=== PATIENT | male | born 1950 | race Caucasian/White ===

== ENCOUNTER 2020-09-20 09:53 | Outpatient (REF) | payer MEDICARE, SELFPAY | END 2020-09-20 09:54 | disposition home or self-care (01) | LOC: HO.LAB 09:53 | PROVIDERS: Visit Provider Internal Medicine | DX: Z20.828 Contact with and (suspected) exposure to other viral communicable diseases (principal) | CPT/HCPCS: C9803; U0003 ==

== ENCOUNTER 2021-06-15 08:34 | Outpatient (REF) | payer MEDICARE, SELFPAY | END 2021-06-15 08:35 | disposition home or self-care (01) | LOC: HO.LAB 08:34 | PROVIDERS: PCP Internal Medicine; Visit Provider Internal Medicine | DX: Z20.822 Contact with and (suspected) exposure to COVID-19 (principal) | CPT/HCPCS: C9803; U0003; U0005 ==

== ENCOUNTER 2021-09-20 09:49 | Outpatient (REF) | payer MEDICARE, SELFPAY ==
[2021-09-20 10:36] LABS: Binax Now Covid-19 Ag Positive (Negative)
[2021-09-20 10:37] LABS: Binax Internal Control QC Valid; Binax Lot number: 9864
== END 2021-09-20 09:50 | disposition home or self-care (01) ==
LOC: HO.LAB 09:49
PROVIDERS: Visit Provider Internal Medicine
DX: Z20.822 Contact with and (suspected) exposure to COVID-19 (principal)
CPT/HCPCS: 36415; C9803

== ENCOUNTER 2021-11-12 08:13 | Outpatient (REF) | payer MEDICARE, SELFPAY ==
[2021-11-12 10:02] LABS: B Type Natriuretic Peptide 48 pg/mL (<100)
== END 2021-11-12 08:14 | disposition home or self-care (01) ==
LOC: HO.LAB 08:13
PROVIDERS: Absent Provider Internal Medicine; PCP Internal Medicine; Visit Provider Internal Medicine
DX: I10 Essential (primary) hypertension (principal); R06.02 Shortness of breath
CPT/HCPCS: 36415; 83880

== ENCOUNTER → 2021-12-24 08:08 | Outpatient (REF) | payer MEDICARE, SELFPAY ==
--- NOTE | 2021-12-24 08:17 | CA_ITS ---
Transthoracic Echocardiogram Patient (Last, First, Middle): Eran Mathew D Gender: Male Date of : 1950 Age: 71 Procedure Date: 12/24/2021 Procedure Type: Transthoracic Echocardiogram Location: OP Height: 177.8 cm Weight: 97.98 kg BSA: 2.16 m2 Heart Rate: bpm BP: 144 / 82 mmHg Hairspring Ii Inspector: THEODORE Referring MD: Иван Mackey MD Dust Mop Maker: Evans Gage MD Symptoms: I.10 HTN SOB R06.02 Study Quality: Fair/contrast ECG Rhythm: Sinus Conclusions: - 1. Normal LV size with mild LVH with low normal LV systolic function with LVEF of 50-55% with impaired relaxation filling pattern 2. Mild aortic stenosis 3. Normal RV systolic pressure 4. No gross pericardial effusion Findings Procedure Information Contrast agent, definity, is being given per protocol without apparent complications. Left Ventricle Normal left ventricular cavity size. There is mildly increased left ventricular wall thickness. The left ventricular systolic function is low normal. The visually estimated ejection fraction is between 50-55%. There is paradoxical septal motion consistent with a left bundle branch block. Spectral Doppler is indicative of an impaired relaxation filling pattern. Atria The left atrium is likely dilated. Interatrial shunt cannot be excluded. The right atrium is normal in size. Aortic Valve The aortic valve was not well visualized. There is mild calcification of the aortic valve. There is mild aortic valve stenosis. The peak aortic gradient is 18 mmHg.The mean gradient is 10 mmHg. The aortic valve area is 1.62 cm2. There is no aortic valve regurgitation. Mitral Valve There is mild anterior and moderate posterior mitral leaflet thickening. There is moderate mitral annular calcification. There is trace mitral valve regurgitation. There is no mitral valve stenosis. Pulmonic Valve The pulmonic valve was not well visualized. Tricuspid Valve The tricuspid valve was not well visualized. The right ventricular systolic pressure is normal. Great Vessels The aorta was not well visualized. The pulmonary artery was not well visualized. Venous The inferior vena cava is normal in size. Pericardium/Pleural There is no evidence of pericardial effusion. Measurements 2D Linear Measurements IVSd: 1.35 0.6-0.9/0.6-1.0 cm LVIDd: 5.47 3.9-5.3/4.2-5.9 cm LVIDd Index: 2.53 2.4-3.2/2.2-3.1 cm/m2 LVIDs: 3.51 2.0-3.6 cm LVPWd: 1.19 0.7-1.1 cm LA Diam: 3.80 2.7-3.8/3.0-4.0 cm LAIDs Index: 1.76 1.5-2.3 cm/m2 LV Mass: 364.27 67-162/88-224 g LV Mass Index: 168.64 43-95/49-115 g/m2 LVOT Diam: 2.00 3.0+(-)1.3 cm 2D Systolic Function EF 4C: 44.60 >55% EF 2C: 57.20 >55% EF BiP: 52.50 >55% Mitral Valve MV Pk E: 0.59 MV PK A: 1.19 MV Decel Time: 170.00 E/A: 0.50 E'Lateral: 6.85 E'Medial: 5.00 E/E' Med: 11.70 E/E' Lat: 8.50 PHT: 50.00 MVA PHT: 4.40 Decel [place]: 3.44 Aortic Valve AoV Pk Hermes: 2.11 AoV Mn Hermes: 1.49 AoV VTI: 0.43 AoV Pk Grad: 18.00 Aov Mn Grad: 10.00 VINCENT Cont.VTI: 1.62 LVOT LVOT Pk Hermes: 1.10 LVOT Mn Hermes: 0.77 LVOT VTI: 0.22 LVOT Pk Grad: 5.00 LVOT Mn Grad: 3.00 LVOT Diam: 2.00 LVOT Area: 3.14 Diastolic Function MV Pk E: 0.59 MV Pk A: 1.19 E/A: 0.50 E'Medial: 5.00 E/E' Med: 11.70 E' Laterial: 6.85 E/E' Lat: 8.50 Right Ventricle TAPSE (mm): 24.00 TVS' Hermes: 18.80 Tricuspid Valve TR Pk Hermes: 1.19 TR Pk Grad: 6.00 RA Press: 3.00 RVSP: 9.00 Great Vessels Aorta Sinus of Valsalva: 3.46 2.0-3.5 cm Ao Asc: 3.30 2.1-3.4 cm Ao Arch: 2.80 Updated in Other Vendor System with Status of Final Evans Gage MD electronically signed on 12/25/2021 5:15:51 PM with status of Final
== END ==
LOC: HO.CARD 08:08
PROVIDERS: PCP Internal Medicine; Visit Provider Internal Medicine
DX: I10 Essential (primary) hypertension (principal); R06.02 Shortness of breath
CPT/HCPCS: 93306; Q9957

== ENCOUNTER 2023-06-27 07:44 | Outpatient (REF) | payer MEDICARE, SELFPAY ==
--- NOTE | ~2023-06-27 | XR_ITS ---
EXAMINATION: XR CHEST 2 VIEWS CLINICAL INFORMATION: Bacterial pneumonia. COMPARISON: Chest radiographs dated 10/17/2018. TECHNIQUE: Frontal and lateral views of the chest were obtained. FINDINGS: The heart, great vessels, pulmonary vasculature and mediastinum are normal. The lungs show no focal infiltrate, effusion or pneumothorax. There is no acute osseous abnormality. There is multi-level thoracic spondylosis. A dual-lead, dual-chamber pacemaker device shows no lead fracture or change in lead tip positions. XR/XR chest 2V IMPRESSION: No active cardiopulmonary disease.
== END 2023-06-27 07:45 | disposition home or self-care (01) ==
LOC: HO.XRAY 07:44
PROVIDERS: PCP Internal Medicine; Visit Provider Internal Medicine
DX: J18.9 Pneumonia, unspecified organism (principal)
CPT/HCPCS: 71046

== ENCOUNTER 2023-07-25 14:26 | Outpatient (REF) | payer MEDICARE, SELFPAY ==
[2023-07-25 18:08] LABS: Anion Gap 17 (12-20); Blood Urea Nitrogen 19 mg/dL (9-16); Calcium 9.9 mg/dL (8.4-10.2); Carbon Dioxide 23 mmol/L (22-29); Chloride 101 mmol/L (96-108); Estimated Glomerular Filt Rate > 60; Glucose Random 118 mg/dL (60-115); Potassium 4.8 mmol/L (3.3-5.1); Sodium 136 mmol/L (135-145)
== END 2023-07-25 14:27 | disposition home or self-care (01) ==
LOC: HO.CHCLDS 14:26
PROVIDERS: Visit Provider Internal Medicine
DX: I25.10 Atherosclerotic heart disease of native coronary artery without angina pectoris (principal); E11.65 Type 2 diabetes mellitus with hyperglycemia
CPT/HCPCS: 36415; 80048

== ENCOUNTER 2024-01-24 10:32 | Outpatient (REF) | payer MEDICARE, SELFPAY ==
[2024-01-24 15:19] LABS: Creatinine Urine 87.05 mg/dL; Microalbum/Creatinine Ratio Ur 35.6 ug/mg cr (<30)
[2024-01-24 15:23] LABS: Alanine Aminotransferase 21 U/L (0-40); Albumin Level 4.3 g/dL (3.5-5.0); Alkaline Phosphatase 52 U/L (39-117); Anion Gap 15 (12-20); Aspartate Amino Transferase 22 U/L (5-37); Bilirubin Total 0.5 mg/dL (0.0-1.0); Blood Urea Nitrogen 18 mg/dL (9-16); Calcium 9.3 mg/dL (8.4-10.2); Carbon Dioxide 25 mmol/L (22-29); Chloride 103 mmol/L (96-108); Cholesterol 107 mg/dL (<200); Estimated Glomerular Filt Rate > 60; Glucose Random 111 mg/dL (60-115); HDL Cholesterol 31 mg/dL (>40); LDL Cholesterol Calculated 61 mg/dL (<100); Potassium 4.3 mmol/L (3.3-5.1); Sodium 139 mmol/L (135-145); TSH reflex Free T4 0.52 uIU/mL (0.32-4.0); Total Protein 7.6 g/dL (6.5-8.0); Triglycerides 78 mg/dL (<150)
[2024-01-25 04:13] LABS: ~HepC Num1 0.75 S/CO (0.00-0.79); ~Hepatitis C Antibody Nonreactive (Nonreactive)
== END 2024-01-24 10:33 | disposition home or self-care (01) ==
LOC: HO.CHCLDS 10:32
PROVIDERS: Visit Provider Internal Medicine
DX: E78.00 Pure hypercholesterolemia, unspecified (principal); E11.65 Type 2 diabetes mellitus with hyperglycemia; I10 Essential (primary) hypertension
CPT/HCPCS: 36415; 80053; 80061; 82043; 82570; 84443; 86803

== ENCOUNTER 2025-05-14 09:48 | Outpatient (REF) | payer MEDICARE, SELFPAY ==
--- OUTSIDE RECORDS SUMMARY | 2025-05-12 23:59 | XMS_ITS | Continuity of Care Document ---
Author Organization [facility] Address [address] [place] [id number] Care Team Providers Care Dental Hygiene Instructor Name Role Phone Narendra PATRICIO, [facility] Primary Care Physician Encounter [facility] Date(s): 04/12/25 - 05/12/25 [facility] [address] [place] [id number] Encounter Type: Triage Allergies, Adverse Reactions, Alerts No Known Allergies Immunizations Given and Recorded Vaccine Date Status Refusal Reason influenza virus vaccine, inactivated 07/15/23 Give n influenza virus vaccine, inactivated 06/12/14 Give n influenza virus vaccine, inactivated 05/31/13 Give n influenza virus vaccine, inactivated 05/23/12 Give n Zostavax (oldterm) 03/08/12 Given hepatitis B adult vaccine 11/18/11 Given FluLaval (oldterm) 1 06/04/11 Given FluLaval (oldterm) 06/12/10 Given Hepatitis B Vaccine (old term) 06/04/11 Given influ virus vac, H1N1, inactive(oldterm) 2 09/09/09 Given Influenza Virus Vaccine (oldterm) 06/04/09 Given Influenza Virus Vaccine (oldterm) 08/09/08 Given Tet/Diphth/Acel, Pertussis (oldterm) 05/29/08 Give n Influenza Inactive (IM) (oldterm) 3 08/16/06 Given Pneumococcal Poly (PPV23) (oldterm) 05/29/06 Given 1Admin Note: [facility] [place] [facility] [place] 2Admin Note: H1N1 3Admin Note: clinic [facility] Medications Anoro Ellipta 62.5 mcg-25 mcg inhalation powder 1 puffs, Inhalation, Daily, # 30 each, 1 Refills, Maintenance, 01/14/15 2:51:36 PM EDT, Powder, [id number], 1 puffs Inhalation Daily Start Date: 01/14/15 Status: Ordered Quantity: 30.0 Unit: each Repeat number: 2 aspirin 81 mg oral tablet, chewable 81 mg, By Mouth, Daily, Refills 0, Maintenance, 11/28/18 12:16:45 PM EDT Start Date: 11/28/18 Status: Ordered Repeat number: 1 atorvastatin 80 mg oral tablet = 80 mg, By Mouth, Daily at bedtime, # 30 tablet, 0 Refills, Maintenance, 07/17/23 12:55:00 PM EDT,Tablet, [facility], Partial fill upon patient request if the prescription is for a schedule II opioid drug., 174, cm, 07/17/23 12:09:00 EDT, Height, 94.7, kg, 07/12/23 7:01:00 EDT, Dry Weight Start Date: 07/17/23 Status: Ordered Quantity: 30.0 Unit: tablet Repeat number: 1 Entresto 24 mg-26 mg oral tablet 1 tablet, By Mouth, 2 times a day, # 180 tablet, 1 Refills, Maintenance, 04/12/25 10:19:00 AM EDT, Tablet, [facility], Partial fill upon patient request if the prescription is fora schedule II opioid drug., 1 tablet By Mouth 2 times a day,x90 days, 178, cm, 01/01/25 11:20:00 EDT, Height, 91.3, kg, 09/27/23 9:04:00 EST, Dry Weight Start Date: 04/12/25 Stop Date: 10/09/25 Status: Ordered Quantity: 180.0 Unit: tablet Repeat number: 2 Freestyle Lite Lancets See Instructions, # 200 each, Refills 3, Tot. Refills 3, Maintenance, use as directed for Type 1 Diabetes Mellitus, 12/21/14 1:37:27 PM EDT, Compound Start Date: 12/21/14 Stop Date: 04/20/15 Status: Ordered Quantity: 200.0 Unit: each Repeat number: 4 Freestyle Lite Monitor See Instructions, # 1 each, Refills 5, Tot. Refills 5, Maintenance, use as directed for Type 1 Diabetes Mellitus, 06/24/14 1:37:36 PM EDT, Compound Start Date: 06/24/14 Stop Date: 12/21/14 Status: Ordered Quantity: 1.0 Unit: each Repeat number: 6 Freestyle Lite Monitor See Instructions, # 1 each, Refills 5, Tot. Refills 5, Maintenance, use as directed for Type 1 Diabetes Mellitus, 11/08/14 9:01:27 AM EST, Compound Start Date: 11/08/14 Stop Date: 05/07/15 Status: Ordered Quantity: 1.0 Unit: each Repeat number: 6 Freestyle Lite Test Strips See Instructions, # 200 each, Refills 3, Tot. Refills 3, Maintenance, use as directed for Type 1 Diabetes Mellitus, 11/08/14 9:02:58 AM EST, Compound Start Date: 11/08/14 Stop Date: 03/08/15 Status: Ordered Quantity: 200.0 Unit: each Repeat number: 4 gabapentin 100 mg oral capsule TAKE ONE CAPSULE THREE TIMES DAILY Start Date: 11/25/18 Status: Ordered Repeat number: 1 Jardiance 10 mg oral tablet 1 tablet = 10 mg, By Mouth, Daily in AM, # 30 tablet, 0 Refills, Maintenance, 07/17/23 2:47:00 PM EDT, Tablet, Partial fill upon patient request if the prescription is for a schedule II opioid drug. Start Date: 07/17/23 Status: Ordered Quantity: 30.0 Unit: tablet Repeat number: 1 metformin 1000 mg oral tablet 1 tablet = 1,000 mg, By Mouth, 2 times a day, # 180 tablet, 3 Refills, Maintenance, 11/15/14 11:37:13 AM EST, Tablet, d/c metformin-sitag-- to expensive for pt at this time Start Date: 11/15/14 Stop Date: 11/10/15 Status: Ordered Quantity: 180.0 Unit: tablet Repeat number: 4 metoprolol 50 mg oral tablet, extended release 50 mg, 1, tablet, By Mouth, Daily at bedtime, # 90 tablet, Refills 3, Tot. Refills 3, Maintenance, 01/01/25 11:45:00 AM EDT, Route to Pharmacy Electronically, [facility], Partial fill upon patient request if the prescription is for a schedule II opioid drug., 178, cm, 01/01/25 11:20:00 EDT, Height, 91.3, kg, 09/27/23 9:04:00 EST, Dry Weight Start Date: 01/01/25 Status: Ordered Quantity: 90.0 Unit: tablet Repeat number: 4 omeprazole 20 mg oral delayed release tablet 1 tablet = 20 mg, By Mouth, 2 times a day, # 180 tablet, 3 Refills, Maintenance, 11/15/14 11:37:22 AM EST, EC Tablet Start Date: 11/15/14 Stop Date: 11/10/15 Status: Ordered Quantity: 180.0 Unit: tablet Repeat number: 4 One Touch Ultra Test Strips See Instructions, # 100 strip(s), Refills 11, Tot. Refills 11, Maintenance, use to test blood sugar3 times daily, 03/25/10 4:07:28 PM EDT Start Date: 03/25/10 Status: Ordered Quantity: 100.0 Unit: strip(s) Repeat number: 12 Pen [place], 29 G x 12.7 mm BD Ultra Fine See Instructions, # 100 each, Refills 5, Tot. Refills 5, Maintenance, use as directed for Type 2 Diabetes Mellitus, 07/17/23 2:59:00 PM EDT, Supply, 174, cm, 07/17/23 12:09:00 EDT, Height, 94.7, kg, 07/12/23 7:01:00 EDT, Dry Weight Start Date: 07/17/23 Stop Date: 01/13/24 Status: Ordered Quantity: 100.0 Unit: each Repeat number: 6 ProAir HFA 2 puffs, Inhalation, 4 times a day, 0 Refills, Maintenance, 12/25/14 6:39:44 PM EDT Start Date: 12/25/14 Status: Ordered Repeat number: 1 spironolactone 25 mg oral tablet 25 mg, By Mouth, Daily, take one tablet by mouth daily, # 30 tablet, Refills 3, Tot. Refills 3, Maintenance, 07/17/23 12:56:00 PM EDT, Route to Pharmacy Electronically, [facility], Partial fill upon patient request if the prescription is for a schedule II opioid drug., 174, cm, 07/17/23 12:09:00 EDT, Height, 94.7, kg, 07/12/23 7:01:00 EDT, Dry Weight Start Date: 07/17/23 Status: Ordered Quantity: 30.0 Unit: tablet Repeat number: 4 tramadol 50 mg oral tablet See Instructions, 1 or 2 tabs every 6 hours as needed, # 50 tablet, 5 Refills, Maintenance, 11/15/1510:37:36 AM EST Start Date: 11/15/14 Status: Ordered Quantity: 50.0 Unit: tablet Repeat number: 6 Vashe Topical Solution 475 mL, Topically, Every 12 hours, 0 Refills, Maintenance, Solution Start Date: 07/17/23 Status: Ordered Repeat number: 1 Problem List Condition Confirmation Course Effective Dates Status H ealth Status Informant Adult BMI 37.0-37.9 kg/sq m Confirmed Active Anemia 1 Confirmed Active Bacterial skin infection Confirmed Active Benign Essential Hypertension Confirmed Active Chronic cough Confirmed Active Chronic renal insufficiency, stage I Confirmed Active DM (diabetes mellitus), 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 ED (erectile dysfunction) Confirmed 10/07/09 Active Esophagitis 3, 4 Confirmed Active Familial hyperlipidemia Confirmed Active Glaucoma Confirmed Active Gout 5 Confirmed 02/26/13 Active HZ (herpes zoster),v1 left 6 Confirmed Active H/o alcohol abuse Confirmed Active History of COPD Confirmed Active Microscopic Hematuria 7, 8 Confirmed Active Mitral valve insufficiency 9, 10 Confirmed Active Neck pain 11 Confirmed Active Nephrolithiasis 12 Confirmed Active Non-alcoholic fatty liver disease 13, 14, 15 Confirmed Active Osteoarthritis of knee 16 Confirmed Active 1normal iron,b12,folate 2refer healthcare educator again 3egd done;path pending 4refer EGD 5first attack 6V1 left 7neg eval 8urology addressing 9mild 10refer ECHOCARDIOGRAM 11Dr hodges following 12refer uroloogy 13seen on CT thorac [address] scans abdomen ? 14iron normal, refer HEP C 15HEP B given, immune A 16seeing ortho Social History Social History Type Response Smoking Status Former smoker; Numbe r of years: 25; Total pack years: 40; Started at age: 13; Stopped at age: 38; entered on: 01/18/14 Sex Sex Representation Male (finding) Patient Care team information Care Team Personnel Name: Иван Mackey MD Position: [facility] Outreach Member Role: PCP Address: [address] [place] [address] Telecom: Name: Trice Cortez RN Position: [facility] RN Member Role: Primary Care Nurse Name: Amaya Stephen RN Position: [facility] RN Member Role: Primary Care Nurse Name: Lobo Avila RN Position: [facility] RN Member Role: Primary Care Nurse Care Team Related Persons Name: ROE DICKSONNA Name: ILA DICKSON Insurance Providers Guarantor name: Health Plan Information #: 1 Payer: [employer] PPO [employer] ADV Payer Identifier: NA Member Number: [id number] Group Number: [id number] Subscriber Identifier: [id number] Relationship to Subscriber: self Coverage Type: NA Coverage Verification Date: NA Telecom: Address:
[2025-05-14 14:41] LABS: Cholesterol 137 mg/dL (<200); HDL Cholesterol 35 mg/dL (>40); Triglycerides 189 mg/dL (<150)
[2025-05-14 15:03] LABS: Microalbum/Creatinine Ratio Ur 32.2 ug/mg cr (<30)
[2025-05-14 15:32] LABS: Hemoglobin A1C 225.4961 umol/L; Total Hemoglobin (HGBA1C) 4071.2805 umol/L
== END 2025-05-14 09:49 | disposition home or self-care (01) ==
LOC: HO.CHCLDS 09:48
PROVIDERS: Visit Provider Internal Medicine
DX: E11.65 Type 2 diabetes mellitus with hyperglycemia (principal); E78.00 Pure hypercholesterolemia, unspecified
CPT/HCPCS: 36415; 80061; 82043; 82570; 83036

== ENCOUNTER 2025-08-28 01:06 | Inpatient (IN) | payer MEDICARE, SELFPAY ==
[2025-08-28] VITALS (39 sets, daily range): BP systolic 84–157; BP diastolic 42–87; PULSE 61–124; RESP 13–25; TEMP 36.7–38.8; O2SAT 92–97; BMI 28.8
--- NOTE | ~2025-08-28 | US_ITS ---
EXAMINATION: US ABDOMEN LIMITED CLINICAL INFORMATION: Right upper quadrant pain, abnormal LFTs, sepsis. Cholelithiasis, choledocholithiasis COMPARISON: CT from 08/28/2025 TECHNIQUE: Real-time imaging of the right upper quadrant abdominal viscera. FINDINGS: PANCREAS: Visualized portions are unremarkable. LIVER: Liver size is probably enlarged measuring 22 cm long axis. The liver contour is normal. There is diffuse increased echogenicity. No focal hepatic lesion. There is no intrahepatic biliary duct dilatation. GALLBLADDER: There is no gallbladder wall thickening. There is sludge within the gallbladder. There are also echogenic foci with posterior acoustic shadowing consistent with stones. There is no pericholecystic fluid. COMMON BILE DUCT: Normal in caliber measuring 1.1 cm in diameter. There is an echogenic focus within the extra hepatic bile duct without clear posterior acoustic shadowing RIGHT KIDNEY: No hydronephrosis. There is a 15 mm partially exophytic simple cyst in the extra region of the right kidney.. There is a 2-3 mm echogenic focus in the upper pole consistent with a small stone. The lower pole is partially obscured by bowel gas. The kidney measures 13.3 cm in maximum dimension. FREE FLUID: None. US/US abdomen limited IMPRESSION: Cholelithiasis and gallbladder sludge without gallbladder wall thickening. There is extrahepatic bile duct dilation and possible choledocholithiasis. Hepatic steatosis and possible hepatomegaly. There is a small stone in the upper pole right kidney. Electronically signed by: Faustino Andersen MD 08/28/2025 12:16 PM [facility]
--- NOTE | ~2025-08-28 | FL_ITS ---
EXAMINATION: FLUOROSCOPY GUIDANCE FOR NEEDLE PLACEMENT CLINICAL INFORMATION: ERCP COMPARISON: Previous abdominal ultrasound and CT of the abdomen and pelvis August 28, 2025 TECHNIQUE: Intraoperative fluoroscopic guidance provided for ERCP. FINDINGS: 10 intraoperative fluoroscopic images submitted. Earliest images demonstrate a wire in the extrahepatic and right-sided intrahepatic bile ducts. Mild intra and extrahepatic biliary duct dilatation. Question of small filling defects in the distal common bile duct on early images. This may represent stones versus air bubbles. Later images demonstrate balloon in the extrahepatic bile ducts. Later images demonstrate decompression of the biliary system with contrast in the small bowel. There is contrast seen in the gallbladder with round filling defects suggestive of gallstones. See procedure note for detailed findings. FLUOROSCOPY TIME: 3.25 minutes DOSE AREA PRODUCT: 25 Gy-cm2 FL/FL guidance in OR IMPRESSION: Fluoroscopy guidance for ERCP. Electronically signed by: Arabella García MD 08/30/2025 07:55 AM [facility]
--- NOTE | ~2025-08-28 | CT_ITS ---
CLINICAL HISTORY: Febrile; Abd Pain; ? infected stone CT abdomen and pelvis with contrast Comparison: None provided Findings: The lung bases are clear. The liver, spleen, pancreas, bilateral adrenal glands and bilateral kidneys without acute abnormality or abnormal enhancement. Bilateral cortical renal cysts are noted, more numerous and larger on the left. There are also bilateral nonobstructive intrarenal stones, the largest in the lower polar region of the left kidney measuring nearly 17 mm. There are no radiopaque stones in the ureters or bladder. There no hydronephrosis The gallbladder is distended. Tiny gallstones are noted within the gallbladder lumen. Possibly tiny gallstones within the distal CBD. There is mild intra and extrahepatic biliary dilatation The stomach and bowel loops are nondistended. There are no focal colonic lesions or pneumatosis. There is no mesenteric inflammation. The appendix is normal. No free fluid, collections or free air. No aortic dissection or aneurysm. No lymphadenopathy. The bladder is normal. There no acute soft tissue or skeletal abnormality in the abdomen or pelvis. IMPRESSION: Distended gallbladder with tiny gallstones within the lumen. Suggestion of tiny gallstones within the distal CBD (choledocholithiasis). there is mild biliary dilatation. Recommend correlation with right upper quadrant ultrasound. Nonobstructive bilateral intrarenal stones. Bilateral cortical renal cysts. The examination is otherwise unremarkable. This document has been electronically signed by: Robbi Escobedo MD on 08/28/2025 06:19:45
--- NOTE | 2025-08-28 01:33 | ECG_ITS ---
Test Reason : TACYCARDIA Blood Pressure : */* mmHG Vent. Rate : 107 BPM Atrial Rate : 119 BPM P-R Int : * ms QRS Dur : 112 ms QT Int : 356 ms P-R-T Axes : * 36 228 degrees QTcB Int : 475 ms Ventricular-paced rhythm with occasional Premature ventricular complexes Abnormal ECG When compared with ECG of 01-Sep-2006 13:43, Ventricular-paced rhythm has replaced Normal sinus rhythm Referred By: Generic ED Physician Electronically Signed By: JAMIE KEENAN MD
--- NOTE | 2025-08-28 01:43 | ECG_ITS ---
Test Reason : TACYCARDIA Blood Pressure : */* mmHG Vent. Rate : 70 BPM Atrial Rate : 70 BPM P-R Int : 212 ms QRS Dur : 118 ms QT Int : 396 ms P-R-T Axes : * 35 225 degrees QTcB Int : 427 ms AV dual-paced rhythm with prolonged AV conduction Abnormal ECG When compared with ECG of 28-Aug-2025 01:42, Vent. rate has decreased by 37 bpm AV dual-paced complexes has replaced Ventricular-paced rhythm Referred By: Susie Hairston Electronically Signed By: JAMIE KEENAN MD
[2025-08-28 02:06] LABS: Hematocrit 48.4 % (42.0-52.0); Hemoglobin 15.7 g/dl (14.0-18.0); Mean Corpuscular HGB Conc 32.4 g/dl (31.0-36.0); Mean Corpuscular Hemoglobin 28.2 pg (27.0-33.0); Mean Corpuscular Volume 87.1 fL (80.0-98.0); NRBC Abs Auto 0.000 X10*3/uL (0.0-0.012); NRBC Pct Auto 0.0 /100WBC (0.0-0.2); Platelet Count 108 X10*3/uL (160-400); Red Blood Count 5.56 X10*6/uL (4.60-5.80); White Blood Count 4.6 X10*3/uL (4.8-10.8)
[2025-08-28 02:21] LABS: Alanine Aminotransferase 425 U/L (0-40); Albumin Level 4.3 g/dL (3.5-5.0); Alkaline Phosphatase 240 U/L (39-117); Anion Gap 20 (12-20); Aspartate Amino Transferase 258 U/L (5-37); Blood Urea Nitrogen 32 mg/dL (9-16); Calcium 9.0 mg/dL (8.4-10.2); Carbon Dioxide 21 mmol/L (22-29); Chloride 101 mmol/L (96-108); Creatinine Clr Calc Pharmacy 67.0; Estimated Glomerular Filt Rate > 60; Lipase 21 U/L (8-78); Potassium 4.0 mmol/L (3.3-5.1); Sodium 138 mmol/L (135-145); Total Protein 7.1 g/dL (6.5-8.0)
[2025-08-28 02:42] LABS: Neutrophils Percent Manual 68 % (45-73)
[2025-08-28 02:44] LABS: Band Neutrophils Percent 21 % (3-5); Lymphocytes Absolute Manual 0.1 X10*3/uL (1.2-4.9); Lymphocytes Percent Manual 3 % (20-40); Metamyelocytes Absolute 0.3 X10*3/uL; Metamyelocytes Percent 6 %; Monocytes Absolute Manual 0.1 X10*3/uL (0.1-1.2); Monocytes Percent Manual 2 % (2-11); Neutrophils Absolute Manual 4.1 X10*3/uL (2.0-8.3); RBC Morphology NOTED
[2025-08-28 02:45] LABS: Burr Cells 3+ (>5) /OIF; Large Platelet PRESENT; Polychromasia 3+ (>5) /OIF; Toxic Vacuolation PRESENT
[2025-08-28 02:57] LABS: Appearance Urine Cloudy; Glucose Urine UA >=1000 mg/dL (Negative); PH 5.5 (5.0-9.0); Specific Gravity - Urine 1.025 (1.005-1.025); UMIC TRIGGER UACC YES
[2025-08-28 03:07] LABS: UACC Culture Trigger YES
--- NOTE | 2025-08-28 03:12 | ED.ABDPAIN ---
HPI - Abdominal Pain General Chief Complaint: Abdominal Pain Stated Complaint: General Medical Time Seen by Provider: 08/28/25 03:04 Source: patient and family Mode of arrival: ambulatory Limitations: no limitations History of Present Illness ED Provider: Lobo HOOK HPI narrative: The patient is a 75-year-old male presenting to the ED for evaluation of nausea and vomiting which began Tuesday night, patient has slept most of the day Tuesday morning and then woke with worsening nausea, vomiting, and right upper quadrant abdominal pain which radiates to the right hip and back. The patient developed a fever Tuesday evening which prompted ED evaluation. Denies diarrhea, fever, pain with urination, blood in the urine. Related Data Home Medications ?Medication ?Instructions ?Recorded ?Confirmed aspirin 81 mg tablet,delayed 81 mg PO DAILY 08/28/25 08/28/25 release atorvastatin 80 mg tablet 80 mg PO BEDTIME 08/28/25 08/28/25 cetirizine 10 mg tablet 10 mg PO DAILY 08/28/25 08/28/25 empagliflozin 10 mg tablet 10 mg PO DAILY 08/28/25 08/28/25 (Jardiance) latanoprost 0.005 % eye drops 1 drp ophthalmic (eye) BEDTIME 08/28/25 08/28/25 metformin 1,000 mg tablet 1,000 mg PO BID 08/28/25 08/28/25 metoprolol succinate 50 mg 50 mg PO DAILY 08/28/25 08/28/25 tablet,extended release 24 hr omeprazole 20 mg capsule,delayed 20 mg PO BID@0630,1630 08/28/25 08/28/25 release sacubitril 24 mg-valsartan 26 mg 1 tab PO BID 08/28/25 08/28/25 tablet (Entresto) spironolactone 25 mg tablet 25 mg PO DAILY 08/28/25 08/28/25 tramadol 50 mg tablet 50 mg PO Q12H PRN severe pain 08/28/25 08/28/25 Allergies Allergy/AdvReac Type Severity Reaction Status Date / Time atorvastatin (Lipitor) Allergy Unknown Unknown Verified 08/28/25 12:07 Review of Systems Review of Systems Yes all other systems are reviewed and are negative PMFSH Past Medical History Medical History (Updated 08/28/25 @ 12:11 by Courtney Mercado RN) Diabetes mellitus, type 2 COPD (chronic obstructive pulmonary disease) Hypertension Coronary artery disease Hypercholesteremia Surgical History (Updated 08/28/25 @ 12:11 by Courtney Mercado RN) H/O coronary artery bypass surgery AICD (automatic cardioverter/defibrillator) present Social History Social History Household Members: Spouse and Children Household Members Other:: 4 Housing: House Do you presently have visiting nurse or other home services: No Alcohol intake: never Patient Tobacco Use Status: Former Tobacco user Smoked in Last 30 Days: No e-Cigarette/Vaping Use: Never Used Use of substances other than those prescribed or required for medical reasons: No Currently Displaying Signs/Symptoms of Drug Intoxication Withdrawal: No Have you been hit, kicked, punched, or otherwise hurt by someone within the past year? If so, by whom?: No Do you feel safe in your current relationship?: Yes Is there a partner from a previous relationship who is making you feel unsafe now?: No Are you made to feel afraid or neglected: No Anabaptism Healthcare Practices: Jew Advance Directives: No Advance Directives Information Provided: Yes Recently lost weight without trying: No Physical Exam ED Vital Signs: Vital Signs - 24 hr 08/28/25 01:26 08/28/25 03:08 08/28/25 03:32 Temperature 98.2 F 101.9 F H Pulse Rate 117 H 124 H 108 H Respiratory Rate 22 H 14 25 H Blood Pressure 101/50 L 113/66 92/50 L Pulse Oximetry 92 97 95 Oxygen Delivery Method Room Air Room Air Room Air 08/28/25 04:30 08/28/25 04:45 08/28/25 04:55 Temperature 100.3 F Pulse Rate 103 H 71 Respiratory Rate 15 24 H Blood Pressure 87/49 L 86/73 L Pulse Oximetry 93 94 Oxygen Delivery Method Room Air Room Air 08/28/25 05:46 08/28/25 05:50 08/28/25 05:59 Temperature Pulse Rate 109 H 110 H 107 H Respiratory Rate 20 18 Blood Pressure 84/47 L 88/48 L 90/56 L Pulse Oximetry 93 94 Oxygen Delivery Method Room Air 08/28/25 06:17 08/28/25 06:21 08/28/25 06:21 Temperature Pulse Rate 89 111 H Respiratory Rate 21 H Blood Pressure 90/59 L 86/46 L 86/46 L Pulse Oximetry 94 Oxygen Delivery Method 08/28/25 06:26 08/28/25 06:31 08/28/25 06:43 Temperature Pulse Rate 90 98 86 Respiratory Rate 23 H Blood Pressure 91/45 L 94/56 L 91/58 L Pulse Oximetry 94 Oxygen Delivery Method Room Air 08/28/25 07:17 08/28/25 08:18 08/28/25 08:21 Temperature 98.1 F Pulse Rate 72 66 Respiratory Rate 22 H 16 Blood Pressure 114/67 90/48 L 97/48 L Pulse Oximetry 96 95 Oxygen Delivery Method Room Air Room Air BMI result Body Mass Index 28.8 CONSTITUTIONAL: The patient appears non-toxic, well nourished and in no acute distress. Vital signs as documented. HEAD: Atraumatic, normocephalic. EYES: EOMs grossly intact, pupils equal, conjunctiva clear, no exudate. ENT: Nares patent, no discharge. Airway patent, no audible stridor, visible mucosa is pink and moist without noted lesions. NECK: Trachea is midline, no obvious masses or gross abnormalities. CHEST: Symmetric movement, normal appearance. LUNGS: LS present and CTAB, no w/r/r. Non-labored work of breathing. CARDIAC: Regular Rhythm, S1/S2 appreciated, no murmurs, rubs or gallops. ABDOMEN: Abdomen soft x4 quadrants, positive tenderness to the right upper quadrant with positive Gardiner's and guarding, negative rebound, no palpable masses or organomegaly. : Deferred. EXTREMITIES: Normal tone, moves all extremities spontaneously without reported pain. No obvious acute injury or deformity noted. NEURO: Alert and oriented x3, CN II-XII appear grossly intact. Cerebellar Functioning grossly intact. No obvious sensory or motor deficits. Speech clear and appropriate. PSYCH: normal affect, appropriate eye contact, fluid speech, with appropriate response to questioning. No reported suicidality or homicidality. SKIN: Warm, dry, color appropriate, normal turgor. No rashes noted. Procedures EJ/Peripheral Line Arm L: Skin Cleansed in Sterile Fashion: Yes Size (gauge): 20 IV Secured and Dressing Applied: Yes Patient Tolerated Procedure: well Additional Comments: US guidanced utilized for placement. Medical Decision Making Medical Decision Making MDM Narrative: 3:12 AM 08/28/2025 (Michelle HOOK): The patient is a 75-year-old male presenting to the ED for evaluation of nausea and vomiting which began Tuesday night, patient has slept most of the day Tuesday morning and then woke with worsening nausea, vomiting, and right upper quadrant abdominal pain which radiates to the right hip and back. The patient developed a fever Tuesday evening which prompted ED evaluation. Upon arrival in the ED patient was found to be tachycardic, borderline hypotensive, and febrile. The patient's laboratory evaluation demonstrated bandemia of 21%, lactic acid of 4.5, and markedly abnormal LFTs with T bili 5.0, direct bili 3.3, AST to 58, ALT 425, and alkaline phosphatase 240. The patient will be treated with 30 cc/kilos fluid bolus, Rocephin, and vancomycin. 4:43 AM 08/28/2025 (Michelle HOOK): A focused sepsis examination was performed. 6:46 AM 08/28/2025 (Michelle HOOK): The patient's CT abdomen and pelvis demonstrated a distended gallbladder with gallstones in the lumen and possible tiny gallstones within the distal CBD indicating choledocholithiasis. There is mild biliary dilatation. In the setting of the CT findings, with the associated LFT abnormalities, and septic picture, patient is likely suffering from choledocholithiasis with ascending cholangitis. The patient's repeat lactic acid has improved to 2.7, unfortunately however the patient's blood pressure continued to decrease despite IV fluid hydration, as such peripheral Levophed was initiated to maintain map of 65, and due to the patient's severity of illness Flagyl and an additional gram of Rocephin was added. The patient's CT recommends correlation with a right upper quadrant ultrasound, ultrasound has been ordered. As the patient is currently on pressors, ICU admission is warranted, however there are currently no ICU beds available, [facility] has no available ICU beds. Patient's case was discussed with the transfer center at [facility], at this time [facility] is on a transfer hold until 08:00, we will receive a phone call back from the transfer center when hold is lifted. While awaiting determination by [facility] we will also discuss with transfer and pumphouse operator for possibility of admission locally to our ICU. 7:25 AM 08/28/2025 (Michelle HOOK): A ICU bed became available at this facility, transferred will be canceled and patient will be admitted to our ICU. Patient's case discussed with Dr. Napier who accepted the patient to the ICU, and is requesting consultation by Interventional Radiology. 7:42 AM 08/28/2025 (Michelle HOOK): Patient's case was discussed with GI, and after discussion with the tongue and quarter stitcher, and an IR consultation has been placed. Admission/Observation Consideration of admission/observation: Escalation of care including admission/observation considered Consult Healthcare Provider Management of the patient was discussed with: Occupational Therapy Department Chair Lab Data MDM Lab Attestation statement: I reviewed the patient's lab results. 08/28/25 01:59 08/28/25 01:59 Labs: Lab Results 08/28/25 08/28/25 08/28/25 Range/Units 01:59 02:39 02:40 WBC 4.6 L (4.8-10.8) X10*3/uL RBC 5.56 (4.60-5.80) X10*6/uL Hgb 15.7 (14.0-18.0) g/dl Hct 48.4 (42.0-52.0) % MCV 87.1 (80.0-98.0) fL MCH 28.2 (27.0-33.0) pg MCHC 32.4 (31.0-36.0) g/dl RDW 14.1 (11.0-16.0) % Plt Count 108 L (160-400) X10*3/uL MPV 10.9 (9.4-12.4) fL Immature Gran % (Auto) Cancelled Neut % (Auto) Cancelled Lymph % (Auto) Cancelled [place] % (Auto) Cancelled Eos % (Auto) Cancelled Baso % (Auto) Cancelled Lymph # (Auto) Cancelled [place] # (Auto) Cancelled Eos # (Auto) Cancelled Baso # (Auto) Cancelled Abs Immat Gran (auto) Cancelled Absolute Neuts (auto) Cancelled Absolute Nucleated RBC 0.000 (0.0-0.012) X10*3/uL Nucleated RBC % (auto) 0.0 (0.0-0.2) /100WBC Neutrophils % (Manual) 68 (45-73) % Band Neutrophils % 21 H (3-5) % Lymphocytes % (Manual) 3 L (20-40) % Monocytes % (Manual) 2 (2-11) % Metamyelocytes % 6 % Abs Neuts (Manual) 4.1 (2.0-8.3) X10*3/uL Lymphocytes # (Manual) 0.1 L (1.2-4.9) X10*3/uL Monocytes # (Manual) 0.1 (0.1-1.2) X10*3/uL Metamyelocytes # 0.3 X10*3/uL Toxic Vacuolation PRESENT Platelet Estimate NORMAL (NORMAL) Large Platelets PRESENT Plt Morphology Comment NOTED RBC Morphology NOTED Polychromasia 3+ (>5) /OIF [place] Cells 3+ (>5) /OIF PT (11.2-13.5) SEC INR (0.9-1.1) Sodium 138 (135-145) mmol/L Potassium 4.0 (3.3-5.1) mmol/L Chloride 101 (96-108) mmol/L Carbon Dioxide 21 L (22-29) mmol/L Anion Gap 20 (12-20) BUN 32 H (9-16) mg/dL Creatinine 1.08 (0.5-1.4) mg/dL Estim Creat Clear Calc 67.0 Estimated GFR > 60 Random Glucose 122 H (60-115) mg/dL Lactic Acid 4.5 H* (0.5-2.0) mmol/L Lactic Acid F/U @ 2Hr (0.5-2.0) mmol/L Lactic Acid F/U @ 4Hr (0.5-2.0) mmol/L Calcium 9.0 (8.4-10.2) mg/dL Total Bilirubin 5.0 H (0.0-1.0) mg/dL Direct Bilirubin 3.3 H (0.0-0.5) mg/dL AST 258 H (5-37) U/L ALT 425 H (0-40) U/L Alkaline Phosphatase 240 H (39-117) U/L Total Protein 7.1 (6.5-8.0) g/dL Albumin 4.3 (3.5-5.0) g/dL Lipase 21 (8-78) U/L Urine Color Urine Appearance Urine pH (5.0-9.0) Ur Specific [place] (1.005-1.025) Urine Protein (Neg-Trace) mg/dL Urine Glucose (UA) (Negative) mg/dL Urine Ketones (Negative) mg/dL Urine Blood (Negative) Urine Nitrite (Negative) Ur Leukocyte Esterase (Negative) Urine RBC (0-2) /HPF Urine WBC (0-5) /HPF Ur Squamous Epith Cells (0-2) /HPF Urine Bacteria (None Seen) Hyaline Casts (0-2) /LPF Influenza Type A (PCR) NEGATIVE (Negative) Influenza Type B (PCR) NEGATIVE (Negative) RSV RNA Qual (PCR) NEGATIVE (Negative) SARS-CoV-2 RNA (RT-PCR) NEGATIVE (Negative) 08/28/25 08/28/25 08/28/25 Range/Units 02:49 05:18 08:02 WBC (4.8-10.8) X10*3/uL RBC (4.60-5.80) X10*6/uL Hgb (14.0-18.0) g/dl Hct (42.0-52.0) % MCV (80.0-98.0) fL MCH (27.0-33.0) pg MCHC (31.0-36.0) g/dl RDW (11.0-16.0) % Plt Count (160-400) X10*3/uL MPV (9.4-12.4) fL Immature Gran % (Auto) Neut % (Auto) Lymph % (Auto) [place] % (Auto) Eos % (Auto) Baso % (Auto) Lymph # (Auto) [place] # (Auto) Eos # (Auto) Baso # (Auto) Abs Immat Gran (auto) Absolute Neuts (auto) Absolute Nucleated RBC (0.0-0.012) X10*3/uL Nucleated RBC % (auto) (0.0-0.2) /100WBC Neutrophils % (Manual) (45-73) % Band Neutrophils % (3-5) % Lymphocytes % (Manual) (20-40) % Monocytes % (Manual) (2-11) % Metamyelocytes % % Abs Neuts (Manual) (2.0-8.3) X10*3/uL Lymphocytes # (Manual) (1.2-4.9) X10*3/uL Monocytes # (Manual) (0.1-1.2) X10*3/uL Metamyelocytes # X10*3/uL Toxic Vacuolation Platelet Estimate (NORMAL) Large Platelets Plt Morphology Comment RBC Morphology Polychromasia /OIF Gina Cells /OIF PT (11.2-13.5) SEC INR (0.9-1.1) Sodium (135-145) mmol/L Potassium (3.3-5.1) mmol/L Chloride (96-108) mmol/L Carbon Dioxide (22-29) mmol/L Anion Gap (12-20) BUN (9-16) mg/dL Creatinine (0.5-1.4) mg/dL Estim Creat Clear Calc Estimated GFR Random Glucose (60-115) mg/dL Lactic Acid (0.5-2.0) mmol/L Lactic Acid F/U @ 2Hr 2.7 H* (0.5-2.0) mmol/L Lactic Acid F/U @ 4Hr 2.6 H* (0.5-2.0) mmol/L Calcium (8.4-10.2) mg/dL Total Bilirubin (0.0-1.0) mg/dL Direct Bilirubin (0.0-0.5) mg/dL AST (5-37) U/L ALT (0-40) U/L Alkaline Phosphatase (39-117) U/L Total Protein (6.5-8.0) g/dL Albumin (3.5-5.0) g/dL Lipase (8-78) U/L Urine Color Dark Yellow Urine Appearance Cloudy Urine pH 5.5 (5.0-9.0) Ur Specific [place] 1.025 (1.005-1.025) Urine Protein 30 (1+) H (Neg-Trace) mg/dL Urine Glucose (UA) >=1000 H (Negative) mg/dL Urine Ketones Negative (Negative) mg/dL Urine Blood Negative (Negative) Urine Nitrite Positive H (Negative) Ur Leukocyte Esterase Small (1+) H (Negative) Urine RBC 3-5 H (0-2) /HPF Urine WBC 0-5 (0-5) /HPF Ur Squamous Epith Cells >20 (0-2) /HPF Urine Bacteria None Seen (None Seen) Hyaline Casts 3-5 (0-2) /LPF Influenza Type A (PCR) (Negative) Influenza Type B (PCR) (Negative) RSV RNA Qual (PCR) (Negative) SARS-CoV-2 RNA (RT-PCR) (Negative) 08/28/25 Range/Units 09:11 WBC (4.8-10.8) X10*3/uL RBC (4.60-5.80) X10*6/uL Hgb (14.0-18.0) g/dl Hct (42.0-52.0) % MCV (80.0-98.0) fL MCH (27.0-33.0) pg MCHC (31.0-36.0) g/dl RDW (11.0-16.0) % Plt Count (160-400) X10*3/uL MPV (9.4-12.4) fL Immature Gran % (Auto) Neut % (Auto) Lymph % (Auto) [place] % (Auto) Eos % (Auto) Baso % (Auto) Lymph # (Auto) [place] # (Auto) Eos # (Auto) Baso # (Auto) Abs Immat Gran (auto) Absolute Neuts (auto) Absolute Nucleated RBC (0.0-0.012) X10*3/uL Nucleated RBC % (auto) (0.0-0.2) /100WBC Neutrophils % (Manual) (45-73) % Band Neutrophils % (3-5) % Lymphocytes % (Manual) (20-40) % Monocytes % (Manual) (2-11) % Metamyelocytes % % Abs Neuts (Manual) (2.0-8.3) X10*3/uL Lymphocytes # (Manual) (1.2-4.9) X10*3/uL Monocytes # (Manual) (0.1-1.2) X10*3/uL Metamyelocytes # X10*3/uL Toxic Vacuolation Platelet Estimate (NORMAL) Large Platelets Plt Morphology Comment RBC Morphology Polychromasia /OIF [place] Cells /OIF PT 15.6 H (11.2-13.5) SEC INR 1.3 H (0.9-1.1) Sodium (135-145) mmol/L Potassium (3.3-5.1) mmol/L Chloride (96-108) mmol/L Carbon Dioxide (22-29) mmol/L Anion Gap (12-20) BUN (9-16) mg/dL Creatinine (0.5-1.4) mg/dL Estim Creat Clear Calc Estimated GFR Random Glucose (60-115) mg/dL Lactic Acid (0.5-2.0) mmol/L Lactic Acid F/U @ 2Hr (0.5-2.0) mmol/L Lactic Acid F/U @ 4Hr (0.5-2.0) mmol/L Calcium (8.4-10.2) mg/dL Total Bilirubin (0.0-1.0) mg/dL Direct Bilirubin (0.0-0.5) mg/dL AST (5-37) U/L ALT (0-40) U/L Alkaline Phosphatase (39-117) U/L Total Protein (6.5-8.0) g/dL Albumin (3.5-5.0) g/dL Lipase (8-78) U/L Urine Color Urine Appearance Urine pH (5.0-9.0) Ur Specific [place] (1.005-1.025) Urine Protein (Neg-Trace) mg/dL Urine Glucose (UA) (Negative) mg/dL Urine Ketones (Negative) mg/dL Urine Blood (Negative) Urine Nitrite (Negative) Ur Leukocyte Esterase (Negative) Urine RBC (0-2) /HPF Urine WBC (0-5) /HPF Ur Squamous Epith Cells (0-2) /HPF Urine Bacteria (None Seen) Hyaline Casts (0-2) /LPF Influenza Type A (PCR) (Negative) Influenza Type B (PCR) (Negative) RSV RNA Qual (PCR) (Negative) SARS-CoV-2 RNA (RT-PCR) (Negative) Independent Interpretation I performed an independent interpretation of an: EKG Radiology Impression Discussion of test interpretation with radiology: I have reviewed the radiologist's reading. Radiologist Impression: CT abdomen and pelvis with contrast Comparison: None provided Findings: The lung bases are clear. The liver, spleen, pancreas, bilateral adrenal glands and bilateral kidneys without acute abnormality or abnormal enhancement. Bilateral cortical renal cysts are noted, more numerous and larger on the left. There are also bilateral nonobstructive intrarenal stones, the largest in the lower polar region of the left kidney measuring nearly 17 mm. There are no radiopaque stones in the ureters or bladder. There no hydronephrosis The gallbladder is distended. Tiny gallstones are noted within the gallbladder lumen. Possibly tiny gallstones within the distal CBD. There is mild intra and extrahepatic biliary dilatation The stomach and bowel loops are nondistended. There are no focal colonic lesions or pneumatosis. There is no mesenteric inflammation. The appendix is normal. No free fluid, collections or free air. No aortic dissection or aneurysm. No lymphadenopathy. The bladder is normal. There no acute soft tissue or skeletal abnormality in the abdomen or pelvis. IMPRESSION: Distended gallbladder with tiny gallstones within the lumen. Suggestion of tiny gallstones within the distal CBD (choledocholithiasis). there is mild biliary dilatation. Recommend correlation with right upper quadrant ultrasound. Nonobstructive bilateral intrarenal stones. Bilateral cortical renal cysts. The examination is otherwise unremarkable. This document has been electronically signed by: Robbi Escobedo MD on 08/28/2025 06:19:45 External Record Review External record reviewed: Outpatient record Prescription Management I considered prescription management with: Pain Medication and Antibiotic Medications Administered Generic Name Dose Route Start Last Admin Trade Name Freq PRN Reason Stop Dose Admin Hydrocortisone Sodium Succinate 50 mg 08/28/25 16:00 08/28/25 21:15 Hydrocortisone Sod Succ/Pf 100 Mg Vial IVPUSH 50 mg Q6H TRICIA Administration Norepinephrine Bitartrate 8 mg in 250 mls @ 0 mls/hr 08/28/25 05:30 08/28/25 23:03 Levophed IVCONT 0.05 mcg/kg/min .Q0M TRICIA 8.53 mls/hr Protocol Titration Per Protocol Piperacillin Sod/Tazobactam 50 mls @ 100 mls/hr 08/28/25 10:00 08/28/25 22:17 Sod 3.375 gm/ Sodium Chloride IV Infused Q6H TRICIA Infusion Insulin Human Lispro 0 unit 08/28/25 18:00 08/28/25 18:04 Insulin Lispro 100 Unit/Ml 3 Ml Vial SUBCUT 2 unit Q6H TRICIA Administration Protocol Discontinued Medications Generic Name Dose Route Start Last Admin Trade Name Freq PRN Reason Stop Dose Admin Hydrocortisone Sodium Succinate 100 mg 08/28/25 09:33 08/28/25 11:30 Hydrocortisone Sod Succ/Pf 100 Mg Vial IVPUSH 08/28/25 09:34 100 mg ONCE ONE Administration Sodium Chloride 2,730 mls @ 2,730 mls/hr 08/28/25 03:09 08/28/25 04:52 Ns 30 ml/kg infuse over 1 hr (2730 ml) 08/28/25 04:08 Infused IV Infusion .Q1H STA Ceftriaxone Sodium 1 gm/ 50 mls @ 100 mls/hr 08/28/25 03:09 08/28/25 03:53 Sodium Chloride IV 08/28/25 03:38 Infused ONCE ONE Infusion Vancomycin HCl 2,000 mg in 500 mls @ 250 mls/hr 08/28/25 03:09 08/28/25 06:11 Vancomycin/Ns IV 08/28/25 05:08 Infused ONCE ONE Infusion Acetaminophen 1,000 mg in 100 mls @ 400 mls/hr 08/28/25 03:09 08/28/25 03:53 Ofirmev IV 08/28/25 03:23 Infused ONCE ONE Infusion Metronidazole 500 mg in 100 mls @ 100 mls/hr 08/28/25 05:27 08/28/25 07:13 Flagyl IV 08/28/25 06:26 Infused ONCE ONE Infusion Ceftriaxone Sodium 1 gm/ 50 mls @ 100 mls/hr 08/28/25 05:27 08/28/25 06:19 Sodium Chloride IV 08/28/25 05:56 Infused ONCE ONE Infusion Lactated Ringer's 1,000 mls @ 999 mls/hr 08/28/25 10:45 08/28/25 12:30 Lr IV 08/28/25 11:45 Infused .Q1H1M TRICIA Infusion Phytonadione 10 mg/ Sodium 51 mls @ 51 mls/hr 08/28/25 21:00 08/28/25 21:36 Chloride IV 08/28/25 21:59 51 mls/hr ONCE ONE Administration Insulin Human Lispro 0 unit 08/28/25 11:00 08/28/25 17:05 Insulin Lispro 100 Unit/Ml 3 Ml Vial SUBCUT Not Given Q6H [facility] Protocol Iohexol 85 ml 08/28/25 05:12 08/28/25 05:12 Iohexol 350 Mg/Ml 100 Ml Infus..Btl IV 08/28/25 05:13 85 ml ONCE ONE Administration Melatonin 6 mg 08/28/25 21:43 08/28/25 22:56 Melatonin 3 Mg Tablet PO 08/28/25 21:44 6 mg ONCE ONE Administration Critical Care Time Critical Care Time Critical Care Time: Yes Total Critical Care Time: 60 Attestation: Time is exclusive of separately billable procedures. Time includes: direct patient care, patient reassessment, coordination of patient care, interpretation of data (laboratory data, pulse oximetry, arterial blood gases and chest xrays), review of patient's medical records, medical consultation and documentation of patient care. Procedures excluded from critical care time: central intravenous line placement and electrocardiography. Discharge Plan Discharge Clinical Impression: Ascending cholangitis, Sepsis Patient Disposition: Admitted As Inpatient Interventions: Admission Worksheet (ED) Last Done: 08/28/25 10:22 Discharge Date/Time: 08/28/25 10:22
[2025-08-28] MEDS: vancomycin/NS 2,000 MG/500 ML PLAST..BAG 250 MG IV (03:21)
[2025-08-28 03:25] LABS: Resp Syncy Virus RNA Qual PCR NEGATIVE (Negative); SARS COV2 PCR INHOUSE NEGATIVE (Negative)
--- OUTSIDE RECORDS SUMMARY | 2025-08-28 04:27 | XMS_ITS | Clinical Summary ---
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 11/10/19 22 Active Spiriva HandiHaler 18 MCG inhalation capsule INHALE ONE PUFFS BY MOUTH ONCE DAILY 30 capsule 11 12/23/19 23 Active amiodarone (Pacerone) 200 MG tablet TAKE 1 TABLET BY MOUTH TWO TIMES A DAY THROUGH 08/10/23. 07/17/20 23 Active Eliquis 5 MG tablet TAKE ONE TABLET IN THE MORNING AND EVENING 60 tablet 10/06/19 24 Active traZODone (Desyrel) 50 MG tabletIndicatio ns:Primary insomnia TAKE ONE OR TWO TABLETS AT BEDTIME 60 tablet 5 01/12/20 24 Active Blood Glucose Monitoring Suppl (Blood Glucose Monitor System) w/Device kit To check the FS 2 times a day 1 kit 03/29/20 24 Active Lancets Misc. (Accu-Chek FastClix Lancet) kitIndications: Type 2 diabetes mellitus with hyperglycemia, without long-term current use of insulin (HCC) FS 2 times a day 1 kit 04/02/20 24 Active gabapentin (Neurontin) 100 MG capsule Take 1 capsule (100 mg) by mouth 3 times daily. 270 capsule 3 08/03/20 24 Active spironolactone (Aldactone) 25 MG tabletIndicatio ns:Primary hypertension TAKE ONE TABLET EVERY MORNING 90 tablet 3 5 9:11 AM EST 10/02/19 25 Active metoprolol tartrate (Lopressor) 25 MG tabletIndicatio ns:Primary hypertension TAKE ONE TABLET IN THE MORNING AND EVENING 180 tablet 3 11/06/19 25 Active omeprazole (PriLOSEC) [address] capsuleIndicati ons:Chronic gastritis without bleeding, unspecified gastritis type TAKE ONE CAPSULE IN THE MORNING AND EVENING 60 capsule 11 11/09/19 25 Active Blood Glucose Monitoring Suppl (Accu-Chek Zakia Plus) w/Device kitIndications: Type 2 diabetes mellitus with hyperglycemia, without long-term current use of insulin ([facility]) To check the FS 2 times a day 1 kit 12/25/19 25 Active glucose blood test strip To use once a day 100 each 12 12/26/19 25 026 Active metFORMIN (Glucophage) 1000 MG tablet TAKE ONE TABLET IN THE MORNING AND EVENING 180 tablet 3 02/05/20 25 Active colchicine 0.6 MG tabletIndicatio ns:Acute gout involving toe of left foot, unspecified cause 1.2 mg PEG, 0.6 mg 1 hour after if needed, 1 tab 24 hours after if needed. 10 tablet 1 02/14/20 25 Active cetirizine (ZyrTEC) 10 MG tabletIndicatio ns:Seasonal allergies TAKE ONE TABLET EVERY DAY 30 tablet 11 04/04/20 25 Active Jardiance 10 MG TAKE ONE TABLET EVERY MORNING 30 tablet 11 04/08/20 25 Active latanoprost (Xalatan) 0.005 % ophthalmic solution PLACE ONE DROP IN EACH EYE EVERY NIGHT AT BEDTIME 04/25/20 25 Active Ketotifen Fumarate 0.035 % solutionIndicat ions:Contact dermatitis, unspecified contact dermatitis type, unspecified trigger Administer 1 drop into affected eye(s) 2 times daily. 5 mL 05/09/20 25 Active clobetasol (Temovate) 0.05 % ointmentIndicat ions:Contact dermatitis, unspecified contact dermatitis type, unspecified trigger Apply topically 2 times daily. 45 g 1 05/09/20 25 Active Blood Glucose Monitoring Suppl (Accu-Chek Guide Me) w/Device kitIndications: Contact dermatitis, unspecified contact dermatitis type, unspecified trigger,Type 2 diabetes mellitus with hyperglycemia, without long-term current use of insulin ([facility]) To use once a day 1 kit 05/09/20 25 Active glucose blood (Accu-Chek Zakia Plus) test stripIndication s:Type 2 diabetes mellitus with hyperglycemia, without long-term current use of insulin ([facility]) To check the blood sugar 2 times a day 100 each 12 05/09/20 25 026 Active Lancets misc To check the FS 2 times a day 100 each 05/09/20 25 Active Aspirin Adult Low Strength 81 MG EC tablet TAKE ONE TABLET EVERY MORNING 90 tablet 3 06/05/20 25 Active naloxone (Narcan) 4 mg/0.1 mL nasal spray Administer 1 spray (4 mg) into affected nostril(s) if needed for opioid reversal. Use 1 by To Skin route 2 times every day 2 each 1 06/13/20 25 Active atorvastatin (Lipitor) 80 MG tablet TAKE ONE TABLET EVERY EVENING 90 tablet 3 5 9:11 AM EST 07/31/20 25 Active traMADol (Ultram) 50 MG tabletIndicatio ns:Chronic pain syndrome Take 1 tablet (50 mg) by mouth every 12 (twelve) hours if needed for severe pain. 56 tablet 5 9:11 AM EST 08/13/20 25 Active atorvastatin (Lipitor) 80 MG tablet TAKE ONE TABLET EVERY EVENING 90 tablet 3 08/06/20 24 025 Discontinued traMADol (Ultram) 50 MG tabletIndicatio ns:Chronic pain syndrome Take 1 tablet (50 mg) by mouth every 12 (twelve) hours if needed for severe pain. 56 tablet 07/15/20 25 025 Discontinued(R eorder (will not trigger notification to Pharmacy)) Active Problems Problem Noted Date Diagnosed Date Long-term current use of opiate analgesic 2024 Atrial fibrillation (CMS/HCC) 07/21/2023 Left ventricular hypertrophy 12/29/2021 Insomnia 08/07/2020 Chronic pain syndrome 07/13/2017 Erectile dysfunction 12/15/2016 Hypercholesterolemia 12/15/2016 Obesity 12/15/2016 Osteoarthritis of knee 12/15/2016 Diabetes mellitus 05/08/2015 Hypertensive disorder 05/08/2015 Encounters Date Type Department Care Team Description 08/22/2025 9:15 AM EST Office Visit [facility] [address] [place] [address] Иван Mackey MD Primary hypertension (Primary Dx); Hypercholesterolemia; Type 2 diabetes mellitus with hyperglycemia, without long-term current use of insulin (HCC); Encounter for immunization 08/22/2025 Travel 08/13/2025 Refill [facility] [address] [place], [place] [phone] Michaela Parrish RN Chronic pain syndrome 08/13/2025 Telephone [facility] [address] [place] [phone] Tamela Moise RN 08/13/2025 Patient Outreach [facility] [address] [place] [address] Иван Mackey MD Pre-visit Planning ([facility] screening was completed on 01/29/2025) 08/07/2025 9:30 AM EST Clinical Support [facility] [address] [place], [place] [phone] Michaela Parrish RN Back pain, unspecified back location, unspecified back pain laterality, unspecified chronicity (Primary Dx) 08/07/2025 Travel 07/31/2025 Refill [facility] [address] [place] [address] Иван Mackey MD 07/15/2025 Refill [facility] [address] [place] [address] Michaela Parrish RN Chronic pain syndrome 07/15/2025 Telephone [facility] [address] [place] [address] Иван Mackey MD Med Refill 07/08/2025 Results Follow-Up [facility] [address] [place] [address] Иван Mackey MD Albumin/Creatinine Ratio, Random Urine 07/08/2025 Orders Only [facility] [address] [place] [address] Carina Amos MD 06/13/2025 9:00 AM EDT Clinical Support [facility] [address] [place] [address] Michaela Parrish RN Back pain, unspecified back location, unspecified back pain laterality, unspecified chronicity (Primary Dx) 06/13/2025 Refill [facility] [address] [place] [address] Michaela Parrish RN Chronic pain syndrome 06/13/2025 Travel 06/06/2025 Orders Only [facility] [address] [place] [address] [phone] ProviderCarina MD 06/04/2025 Refill [facility] [address] [place] [address] Иван Mackey MD from Last 3 Months Immunizations Immunization Administration Dates Next Due Hep B, Unspecified 06/04/2011 Hep B, adult 02/07/2025,11/18/2011 Influenza High-dose Quadriva lent Preservative Free 07/15/2023,06/24/2022,06/24/2021,07/02 Influenza Whole 06/04/2011, 0,06/04/2009,08/09,08/16/2006 Influenza injectable quadriv alent IIV4 with preservative 06/14/2018,06/20/2017,08/23/2016,06/26 Influenza, High Dose Seasona l, Preservative Free 08/22/2025,06/14/2024,06/18/2019 Influenza, IIV3, injectable 06/12/2014,0 05/31/2013,05/23/2012,06/12 Novel [id number], all formulations 09/09/2009 Pfizer Covid-19 Vaccine 12+ 08/22/2025,,09/07/2023 Pneumococcal Conjugate PCV 13 08/23/2016 Pneumococcal Polysaccharide PPSV23 06/14/2018, RSV Bivalent 09/16/2023 Tdap 10/12/2017,05/29/2008 Zoster, Recombinant 12/07/2022,06/18/2019 Zoster, live 03/08/2012 Social History Tobacco Use Types Packs/Day Years Used Date Smoking Tobacco: Former Cigarettes 2 20 1 970 - 1989 Smokeless Tobacco: Never Tobacco Cessation:Counseling Given: Not Answered Comments:Sober since 1981 Housing Stability Answer Date Recorded What is your housing situation today? I have ashlee rodriguez 01/29/[address] you li ve. Do you have problems with any of the following? None of the above 01/29/2025 Food Insecurity Answer Date Recorded Within the past 12 months, y ou worried that your food would run out before you got money to buy more: Never True 01/29/2025 Within the past 12 months,th e food you bought just didn't last and you didn't have enough money to get more: Never True Transportation Answer Date Recorded In the past 12 months, has l ack of transportation kept you from medical appts, meetings, work or from getting things needed for daily living? No 01/29/2025 Utilities Answer Date Recorded In the past 12 months, has t he electric, gas, oil or water company threatened to shut off services in your home? No 01/29/2025 Internet Access Answer Date Recorded Internet Access Q1 Yes 01/29/2025 Internet Access Q2 Not on file 01/29/2025 Sex and Gender Information Value Date Recorded Sex Assigned at Male 07/19/2022 10:27 AM EDT Legal Sex Male 10:27 AM EDT Gender Identity Male 07/19/2022 10:27 AM EDT Sexual Orientation Straight 07/19/2022 10 :27 AM EDT Last Filed Vital Signs Vital Sign Reading Time Taken Comments Blood Pressure 139/81 08/22/2025 9:10 AM EST Pulse 85 08/22/2025 9:10 AM EST Temperature 36.2 C (97.2 F) 08/22/2025 9:10 AM EST Respiratory Rate 20 08/22/2025 9:10 AM EST Oxygen Saturation 97% 08/22/2025 9:10 AM EST Inhaled Oxygen Concentration - - Weight 89.4 kg (197 lb) 08/22/2025 9:10 AM EST Height 174 cm (5' 8.5 ) 08/22/2025 9:10 AM EST Body Mass Index 29.52 08/22/2025 9:10 AM EST Plan of Treatment Upcoming Encounters Date Type Department Care Team (Late st Contact Info) Description 10/03/2025 9:30 AM EST Clinical Support [facility] [address] [place] [address] Michalea Parrish, RN [address] [place] [address] Health Maintenance Due Date Last Done Comments CT Colonography 1950 Colonoscopy 1950 Depression Screening 1950 FIT 1950 Sigmoidoscopy 1950 Alcohol/Substance Use Screening 1962 FOBT 02/13/2025 02/14/2024 Eye Exam 09/29/2025 05/30/2025, 03/2025, 11/23/2024 SDOH Screening 01/29/2026 01/29/2025 Diabetes: Foot Exam 02/13/2026 02/13/2025, 02/07/2025, 01/24/2024, Additional history exists COVID-19 Vaccine () 02/20/2026 08/22/2025, 08/03/2024, 09/07/2023, Additional history exists Diabetes: Hemoglobin A1C 02/20/2026 025, 05/14/2025, 02/07/2025, Additional history exists Lipid Panel 05/14/2026 05/14/2025, 050 03/2024, 11/27/2021 Diabetes: Urine Protein Screening 07/03/2026 07/03/2025, 05/14/2025, 01/24/2024, Additional history exists Tobacco Screening 08/22/2026 08/22/2025 Colorectal Cancer Screening 02/13/2027 FIT DNA/Cologuard 02/13/2027 02/14/2024 DTaP/Tdap/Td Vaccines (3 - Td or Tdap) 10/12/2027 10/12/2017, 05/29/2008 Pneumococcal Vaccine: 50+ Years Completed 06/14/2018, 08/23/2016, 05/29/2006 Zoster Vaccines Completed 12/07/2022, 05/22, 03/08/2012 RSV Patients and Patients Aged 60 years or older Completed 09/16/2023 Hepatitis C Screening Completed 01/24/2024 Hepatitis B Vaccines Completed 02/07/2025, 11/18/2011, 06/04/2011 Influenza Vaccine Completed 08/22/2025, , 07/15/2023, Additional history exists HIB Vaccines Aged Out No longer eligi ble based on patient's age to complete this topic HPV Vaccines Aged Out No longer eligi ble based on patient's age to complete this topic Hepatitis A Vaccines Aged Out No long er eligible based on patient's age to complete this topic IPV Vaccines Aged Out No longer eligi ble based on patient's age to complete this topic Meningococcal B Vaccine Aged Out No l onger eligible based on patient's age to complete this topic Meningococcal Vaccine Aged Out No katie jake eligible based on patient's age to complete this topic RSV under 20 months Aged Out No longe r eligible based on patient's age to complete this topic Rotavirus Vaccines Aged Out No longer eligible based on patient's age to complete this topic Goals Goal Patient Goal Type Associated Problems Recent Progress Patient-Stated? Author Blood Pressure < 140/90 Blood Pressure 139/81(2024 9:10 AM EST) No Brian Rios, PharmD Patient will adhere to medication regimen General No Brian Rios, PharmD Hemoglobin A1c < 7 Result Component 6.5( 9:38 AM EST) No Brian Rios PharmD Help patients manage their type 2 diabetes Care Plan Help patients manage their type 2 diabetes Иван Esparza MD Weekly blood pressure task Care Plan Weekly blood pressure task No Иван Mackey MD Help patients manage their type 2 diabetes Care Plan Help patients manage their type 2 diabetes Иван Esparza MD Patient has chronic kidney disease Care Plan Patient has chronic kidney disease No Иван Mackey MD Weekly blood pressure task Care Plan Weekly blood pressure task Иван Esparza MD Patient has chronic kidney disease Care Plan Patient has chronic kidney disease No Иван Mackey MD Procedures Procedure Name Priority Date/Time Associated Diagnosis Comments POCT GLUCOSE Routine 08/22/2025 9:39 AM EST Type 2 diabetes mellitus with hyperglycemia, without long-term current use of insulin (HCC) POCT GLYCATED HEMOGLOBIN, TOTAL Routine 08/22/2025 9:38 AM EST Type 2 diabetes mellitus with hyperglycemia, without long-term current use of insulin (HCC) POCT LEANDRA-14 URINE DRUG SCREEN Routine 08/07/2025 10:22 AM EST Back pain, unspecified back location, unspecified back pain laterality, unspecified chronicity ALBUMIN/CREATININE RATIO, RANDOM URINE Routine 07/03/2025 10:44 AM EDT POCT LEANDRA-14 URINE DRUG SCREEN Routine 06/13/2025 9:07 AM EDT Back pain, unspecified back location, unspecified back pain laterality, unspecified chronicity HM DIABETES EYE EXAM Routine 05/30/2025 3:57 PM EDT LIPID PANEL, STANDARD Routine 05/14/2025 9:49 AM EDT Hypercholesterolemia LAB COLOGUARD COLON CANCER SCREEN Routine 02/14/2024 7:20 AM EDT Colon cancer screening HEPATITIS C AB W/REFL TO HCV RNA, QN, PCR Routine 01/24/2024 10:34 AM EDT Type 2 diabetes mellitus with hyperglycemia, without long-term current use of insulin (CMS/HCC) Hypercholesterolemia Primary hypertension from Last 3 Months or Most Recently Relevant to Health Maintenance Results * POCT Glucose (08/22/2025 9:39 AM EST) Glucose Blood, POC 139 60 - 200 mg/dL QC Media Lot # [id number] Lot# Expiration Date [id number] Comment:random Blood Capillary blood specimen / Unknown 08/22/2025 9:39 AM EST Иван Mackey MD POINT OF CARE TEST ENTER/ED IT ORDERABLES Final Result * (ABNORMAL) POCT Hgb A1c (08/22/2025 9:38 AM EST) Hemoglobin A1C 6.5(A) 4.0 - 5.7 % QC Media Lot # [id number] Lot# Expiration Date [id number] Blood 08/22/2025 9:38 AM EST Иван Mackey MD POINT OF CARE TEST ENTER/ED IT ORDERABLES Final Result * (ABNORMAL) POCT LEANDRA-14 Urine Drug Screen (08/07/2025 10:22 AM EST) Only the most recent of2 resultswithin the time period is included. THC Positive(A) Negative Cocaine Screen, Urine Negative Negative Opiate Screen, Urine Negative Negative Methamphetamine Screen Urine Negative Negative Amphetamine Screen, Urine Negative Negative Benzodiazepines Screen, Urine Negative Negative Barbiturate Screen, Urine Negative Negative Methadone Screen, Urine Negative Negative Buprenophine Screen, Urine Negative Negative TCA, Urine Negative Negative MDMA Urine Negative Negative ng/mL Oxycodone Screen, Urine Negative Negative Phencyclidine (PCP), Urine Negative Negative Propoxyphene, Urine Negative Negative Fentanyl, Urine Negative Negative Urine Urine specimen obtained by clean catch procedure / Unknown 08/07/2025 10:22 AM EST Narrative Michaela Parrish RN - 08/07/2025 10:22 AM EST . Internal Pass Control Lot# [id number] Exp: 06-25-26 Иван Mackey MD POINT OF CARE TEST ENTER/ED IT ORDERABLES Final Result * Albumin/Creatinine Ratio, Random Urine (07/03/2025 10:44 AM EDT) Urine (Urine, Random) Historical Provider LAB URINE ORDERABLES Janie l Result * Hm Diabetes Eye Exam (05/30/2025 3:57 PM EDT) Historical Provider HEALTH MAINTENANCE Final Result * (ABNORMAL) Lipid Panel, Standard (05/14/2025 9:49 AM EDT) Triglycerides 189(H) <150 mg/dL [facility] Comment:Desirable Triglyceri de: less than 150 mg/dLBorderline High Triglyceride 150-199 mg/dLHigh Triglyceride: 200-499 mg/dLVery High Triglyceride: greater than or equal to 5OO mg/dL Cholesterol 137 <200 mg/dL [facility] Comment:Desirable Cholestero l: less than 200 mg/dLBorderline High Cholesterol: 200-239 mg/dLHigh Cholesterol: greater than 239 mg/dL LDL Cholesterol Calculated 65 <100 mg/dL [facility] Comment:Desirable LDL: less than 100 mg/dLNear Optimal/Above Optimal LDL: 110- 129 mg/dLBorderline High LDL: 130-159 mg/dLHigh LDL: 160-189 mg/dLVery High LDL: greater than or equal to 190 mg/dL HDL Cholesterol 35(L) >40 mg/dL [facility] Comment:Desirable HDL: great er than 40 mg/dL Note: This HDL assay may give artificially low results in patients with liver disease. Blood Venous blood specimen / Unknown 05/14/2025 9:49 AM EDT 05/14/2025 1:58 PM EDT us Иван Mackey MD LAB BLOOD ORDERABLES Final Result [facility] [address] [place] [phone] * (ABNORMAL) Cologuard?? colon cancer screening (02/14/2024 7:20 AM EDT) Cologuard Result Positive( A) Negative 02/18/2024 12:47 AM EDT [facility] Applications (CLIA #:[id number]) Comment: POSITIVE TEST RESULT. A positive Cologuard result should be followed with a colonoscopy or visual examination of the colon. The normal value (reference range) for this assay is negative. TEST DESCRIPTION: Composite algorithmic analysis of stool DNA-biomarkers with hemoglobin immunoassay. Quantitative values of individual biomarkers are not reportable and are not associated with individual biomarker result reference ranges. Cologuard is intended for colorectal cancer screening of adults of either sex, 45 years or older, who are at average-risk for colorectal cancer (CRC). Cologuard has been approved for use by the U.S. FDA. The performance of Cologuard was established in a cross sectional study of average-risk adults aged 50-84. Cologuard performance in patients ages 45 to 49 years was estimated by sub-group analysis of near-age groups. Colonoscopies performed for a positive result may find as the most clinically significant lesion: colorectal cancer [4.0%], advanced adenoma (including sessile serrated polyps greater than or equal to 1cm diameter) [20%] or non- advanced adenoma [31%]; or no colorectal neoplasia [45%]. These estimates are derived from a prospective cross-sectional screening study of 10,000 individuals at average risk for colorectal cancer who were screened with both Cologuard and colonoscopy. (Terrance Barr al, N Engl J Med 2014;370(14):4349-4039.) Cologuard may produce a false negative or false positive result (no colorectal cancer or precancerous polyp present at colonoscopy follow up). A negative Cologuard test result does not guarantee the absence of CRC or advanced adenoma (pre-cancer). The current Cologuard screening interval is every 3 years. ([place] [employer] and U.S. Multi-Society Task Force). Cologuard performance data in a 10,000 patient pivotal study using colonoscopy as the reference method can be accessed at the following location: www.[employer]/results. Additional description of the Cologuard test process, warnings and precautions can be found at www.[email or web address]. Stool specimen (specimen) 02/14/2024 7:20 AM EDT 02/15/2024 2:42 PM EDT us Иван Mackey MD LAB MOLECULAR DIAGNOSTICS O RDERABLES Final Result [facility] (CLIA #:[id number]) [place] [address], * Hepatitis C Antibody with Reflex to HCV, RNA, Quantitative, Real-Time PCR (01/24/2024 10:34 AM EDT) Hepatitis C Antibody Nonreactive Nonreactive [facility] Comment:Antibodies to HCV no t detected; does not exclude early acuteHCV infection. Blood Venous blood specimen / Unknown 01/24/2024 10:34 AM EDT 01/24/2024 2:13 PM EDT Иван Mackey MD LAB BLOOD ORDERABLES Final Result [facility] [address] [place] [phone] [phone] from Last 3 Months or Most Recently Relevant to Health Maintenance Additional Health Concerns Active Problems Noted Date Diagnosed Date Help patients manage their type 2 diabetes 08/22 Weekly blood pressure task 08/22/2025 Help patients manage their type 2 diabetes 08/22 Patient has chronic kidney disease 08/22/2025 Weekly blood pressure task 08/22/2025 Patient has chronic kidney disease 08/22/2025 Insurance [facility] MEDICARE ADVANTAGE HMO Care Teams 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
--- OUTSIDE RECORDS SUMMARY | 2025-08-28 04:27 | XMS_ITS | Encounter Summary ---
Author Organization [employer] Address [address] [place] [address] [address] [place] [address] Care Team Providers Care Notary Public Name Role Phone Иван Mackey MD Primary Care Provider [phone] Encounter Details Date Type Department Care Team (Late Contact Info) Description 02/16/2023 [facility] [employer] [facility] [address] [place] [address] Иван Mackey MD [address] [place], [place] [phone] Social History Tobacco Use Types Packs/Day Years Used Date Smoking Tobacco: Never Assessed Sex and Gender Information Value Date Recorded Sex Assigned at Male 07/19/2022 10:27 AM EDT Legal Sex Male 10:27 AM EDT Gender Identity Male 07/19/2022 10:27 AM EDT Sexual Orientation Straight 07/19/2022 10 :27 AM EDT COVID-19 Exposure Response Date Recorded In the last 10 days, have yo u been in contact with someone who was confirmed or suspected to have Coronavirus/COVID-19? No / Unsure 02/15/2023 8:57 AM EDT documented as of this encounter Plan of Treatment Upcoming Encounters Date Type Department Care Team (Late Contact Info) Description 10/03/2025 9:30 AM EST Clinical Support [facility] [address] [place], [place] [phone] Michaela Parrish RN [address] [place], [place] [phone] documented as of this encounter Goals Goal Patient Goal Type Associated Problems Recent Progress Patient-Stated? Author Blood Pressure < 140/90 Blood Pressure 139/81(2024 9:10 AM EST) No Brian Rios PharmD Patient will adhere to medication regimen General No Brian Rios PharmD Hemoglobin A1c < 7 Result Component 6.5( 9:38 AM EST) No Brian Rios PharmD documented as of this encounter Visit Diagnoses Not on filedocumented in this encounter Care Teams Notary Public Relationship Specialty Start Date End Date Иван Mackey MD [address] [place] [phone] PCP - General Internal Medicine 04/18/15 documented as of this encounter
--- OUTSIDE RECORDS SUMMARY | 2025-08-28 04:27 | XMS_ITS | Encounter Summary ---
Author Organization [employer] Address 75 [facility] 7 [place] [address] Care Team Providers Care Care Manager Name Role Phone Иван Mackey MD Primary Care Provider [phone] Reason for Visit * Reason Comments Med Refill Encounter Details Date Type Department Care Team ([facility] st Contact Info) Description 02/16/2024 Refill [facility] CH[facility] MED & PEDS [address] [place], [place] [phone] Иван Mackey MD 505 [place] [address] Chronic pain syndrome Social History Tobacco Use Types Packs/Day Years Used Date Smoking Tobacco: Former Cigarettes 2 20 1 0 - 1989 Smokeless Tobacco: Never Housing Stability Answer Date Recorded What is your housing situation today? I have ashlee rodriguez 07/04/[address] you li ve. Do you have problems with any of the following? None of the above 07/04/2023 Food Insecurity Answer Date Recorded Within the past 12 months, y ou worried that your food would run out before you got money to buy more: Never True 07/04/2023 Within the past 12 months,th e food you bought just didn't last and you didn't have enough money to get more: Never True Transportation Answer Date Recorded In the past 12 months, has l ack of transportation kept you from medical appts, meetings, work or from getting things needed for daily living? No 07/04/2023 Utilities Answer Date Recorded In the past 12 months, has t he electric, gas, oil or water company threatened to shut off services in your home? No 07/04/2023 Sex and Gender Information Value Date Recorded Sex Assigned at Male 07/19/2022 10:27 AM EDT Legal Sex Male 10:27 AM EDT Gender Identity Male 07/19/2022 10:27 AM EDT Sexual Orientation Straight 07/19/2022 10 :27 AM EDT documented as of this encounter Plan of Treatment Upcoming Encounters Date Type Department Care Team (Late st Contact Info) Description 10/03/2025 9:30 AM EST Clinical Support [facility] MED & PEDS [address] [place] [address] Michaela Parrish, RN 505 [place] [address] documented as of this encounter Goals Goal Patient Goal Type Associated Problems Recent Progress Patient-Stated? Author Blood Pressure < 140/90 Blood Pressure 139/81(2024 9:10 AM EST) No DellogonoRobinis, PharmD Patient will adhere to medication regimen General No Dellogono, Brian, PharmD Hemoglobin A1c < 7 Result Component 6.5( 9:38 AM EST) No Dellogono, Brian, PharmD documented as of this encounter Visit Diagnoses Diagnosis Chronic pain syndrome documented in this encounter Care Teams Care Manager Relationship Specialty Start Date End Date Иван Mackey MD [address] [place] [address] PCP - General Internal Medicine 04/18/15 documented as of this encounter
--- OUTSIDE RECORDS SUMMARY | 2025-08-28 04:27 | XMS_ITS | Encounter Summary ---
Author Organization [employer] Address 75 [facility] 7t [place] [address] Care Team Providers Care Glass Science Engineer Name Role Phone Иван Mackey MD Primary Care Provider [phone] Encounter Details Date Type Department Care Team (Late st Contact Info) Description 05/13/2025 Orders Only [facility] CHC MED & PEDS [address] [place], [place] [phone] Lamar Khan RN [address] [place] [address] Social History Tobacco Use Types Packs/Day Years Used Date Smoking Tobacco: Former Cigarettes 2 20 1 970 - 1989 Smokeless Tobacco: Never Comments:Sober since 1981 Housing Stability Answer Date [...] 10/03/2025 9:30 AM EST Clinical Support [facility] MED & PEDS [address] [place] [address] Michaela Parrish, LUBA 505 [place] [address] documented as of this encounter Goals Goal Patient Goal Type Associated Problems Recent Progress Patient-Stated? Author Blood Pressure < 140/90 Blood Pressure 139/81(2024 9:10 AM EST) No DellogonoRobinis, PharmD Patient will adhere to medication regimen General No Dellogono, Brian, PharmD Hemoglobin A1c < 7 Result Component 6.5( 9:38 AM EST) No Dellogono Brian, PharmD documented as of this encounter Visit Diagnoses Not on filedocumented in this encounter Care Teams Glass Science Engineer Relationship Specialty Start Date End Date Иван Mackey MD 505 [place] [address] PCP - General Internal Medicine 04/18/15 documented as of this encounter
--- OUTSIDE RECORDS SUMMARY | 2025-08-28 04:27 | XMS_ITS | Encounter Summary ---
Author Organization [employer] Address 75 [facility] 7t [place] [address] Care Team Providers Care Computer Systems Information Director Name Role Phone Иван Mackey MD Primary Care Provider [phone] Encounter Details Date Type Department Care Team ([facility] st Contact Info) Description 08/13/[address] [facility] 230 [place] [address] Tamela Moise RN [address] [place] [address] Social History Tobacco Use Types Packs/Day Years Used Date Smoking Tobacco: Former Cigarettes 2 20 1 0 - 1989 Smokeless Tobacco: Never Comments:Sober since [...] Description 10/03/2025 9:30 AM EST Clinical Support [facility] MED & PEDS 505 [place] [address] Michaela Parrish, LUBA 505 [place] [address] documented as of this encounter Goals Goal [...] on filedocumented in this encounter Care Teams Computer Systems Information Director Relationship Specialty Start Date End Date Иван Mackey MD 505 [place] [address] PCP - General Internal Medicine 04/18/15 documented as of this encounter
--- OUTSIDE RECORDS SUMMARY | 2025-08-28 04:27 | XMS_ITS | Encounter Summary ---
Author Organization [employer] Address 75 [facility] 7 [place] [address] Care Team Providers Care Skid Machine Operator Name Role Phone Иван Mackey MD Primary Care Provider [phone] Reason for Visit * Reason Comments Med Refill Encounter Details Date Type Department Care Team ([facility] st Contact Info) Description 01/17/2024 Refill [facility] CHC MED & PEDS 505 [place], [place] [phone] Иван Mackey MD 505 [place] [address] Chronic pain syndrome Social History Tobacco Use Types Packs/Day Years Used Date Smoking Tobacco: Never Assessed Housing Stability Answer Date Recorded What is [...] Description 10/03/2025 9:30 AM EST Clinical Support [facility] MED & PEDS [address] [place] [address] Michaela Parrish, LUBA 505 [place] [address] documented as of this encounter Goals Goal Patient Goal Type Associated Problems Recent Progress Patient-Stated? Author Blood Pressure < 140/90 Blood Pressure 139/81(2024 9:10 AM EST) No Dellogono, Brian, PharmD Patient will adhere to medication regimen General No Dellogono, Brian, PharmD Hemoglobin A1c < 7 Result Component 6.5( 9:38 AM EST) No Dellogono, Brian, PharmD documented as of this encounter Visit Diagnoses Diagnosis Chronic pain syndrome documented in this encounter Care Teams Skid Machine Operator Relationship Specialty Start Date End Date Иван Mackey MD 505 [place] [address] PCP - General Internal Medicine 04/18/15 documented as of this encounter
--- OUTSIDE RECORDS SUMMARY | 2025-08-28 04:27 | XMS_ITS | Encounter Summary ---
Author Organization [employer] Address 75 [facility] 7 [place] [address] Care Team Providers Care Flask Pusher Name Role Phone Иван Mackey MD Primary Care Provider [phone] Reason for Visit * Reason Onset Date Comments Appointment Request 07/20/2023 Encounter Details Date Type Department Care Team ([facility] st Contact Info) Description 07/20/2023 Telephone [facility] MEDICINE 230 [place] [address] Иван Mackey MD [address] [place] [address] Appointment Request Social History Tobacco Use Types Packs/Day Years [...] AM EDT documented as of this encounter Miscellaneous Notes * Telephone Encounter - Warren Merlin - 07/20/2023 2:52 PM EDT Tc from patient calling back in regards of missed appt on 07/13 states he was in hospital for a open heart surgery. Please call [phone] documented in this encounter Plan of Treatment Upcoming Encounters Date Type Department Care Team (Late st Contact Info) Description 10/03/2025 9:30 AM EST Clinical Support [facility] MED & PEDS [address] [place] [address] Michaela Parrish RN 505 [place] [address] documented as of this encounter Goals Goal [...] on filedocumented in this encounter Care Teams Flask Pusher Relationship Specialty Start Date End Date Иван Mackey MD [address] [place] [address] PCP - General Internal Medicine 04/18/15 documented as of this encounter
--- OUTSIDE RECORDS SUMMARY | 2025-08-28 04:27 | XMS_ITS | Encounter Summary ---
Author Organization [employer] Address [address] [place] [address] 7 [place] [address] Care Team Providers Care Machine Bobbin Winder Name Role Phone Иван Mackey MD Primary Care Provider [phone] Reason for Visit * Reason Comments Med Refill Encounter Details Date Type Department Care Team (Late st Contact Info) Description 10/13/2022 Refill [facility] 230 [place] [address] Иван Mackey MD 505 [place] [address] Chronic pain syndrome Social History Tobacco Use [...] suspected to have Coronavirus/COVID-19? No / Unsure 09/14/2022 8:34 AM EST documented as of this encounter Plan of Treatment Upcoming Encounters Date Type Department Care Team (Late st Contact Info) Description 10/03/2025 9:30 AM EST Clinical Support [facility] CHC MED & PEDS [address] [place], [place] [phone] Michaela Parrish, LBUA 505 [place], [place] [phone] documented as of this encounter Visit Diagnoses Diagnosis Chronic pain syndrome documented in this encounter Care Teams Machine Bobbin Winder Relationship Specialty Start Date End Date Иван Mackey MD [address] [place] [address] PCP - General Internal Medicine 04/18/15 documented as of this encounter
--- OUTSIDE RECORDS SUMMARY | 2025-08-28 04:27 | XMS_ITS | Encounter Summary ---
Author Organization [employer] Address 75 [facility] 7t [place] [address] Care Team Providers Care Homeopathic Doctor Name Role Phone Иван Mackey MD Primary Care Provider [phone] Encounter Details Date Type Department Care Team (Late st Contact Info) Description 12/27/2024 Orders Only [facility] CHC MED & PEDS [address] [place], [place] [phone] ProviderCarina MD Social History Tobacco Use Types Packs/Day Years Used Date Smoking Tobacco: Former Cigarettes 2 20 1 - 1989 Smokeless Tobacco: Never Housing Stability Answer Date Recorded What is your housing situation today? I have ashleeguillermo rodriguez 07/04/[address] you [...] Description 10/03/2025 9:30 AM EST Clinical Support [facility] MED & PEDS 505 [place] [address] Michaela Parrish, RN [address] [place] [address] documented as of this encounter Goals Goal Patient Goal Type Associated Problems Recent Progress Patient-Stated? Author Blood Pressure < 140/90 Blood Pressure 139/81(2024 9:10 AM EST) No DellogonoBrian, PharmD Patient will adhere to medication regimen General No Dellogono, Brian, PharmD Hemoglobin A1c < 7 Result Component 6.5( 9:38 AM EST) No DellogonoBrian, PharmD documented as of this encounter Procedures Procedure Name Priority Date/Time Associated Diagnosis Comments DIABETES EYE EXAM Routine 11/23/2024 11:44 AM EST documented in this encounter Results * Hm Diabetes Eye Exam (11/23/2024 11:44 AM EST) us Historical Provider HEALTH MAINTENANCE Final Result documented in this encounter Visit Diagnoses Not on filedocumented in this encounter Care Teams Homeopathic Doctor Relationship Specialty Start Date End Date Иван Mackey MD [address] [place] [address] PCP - General Internal Medicine 04/18/15 documented as of this encounter
--- OUTSIDE RECORDS SUMMARY | 2025-08-28 04:27 | XMS_ITS | Encounter Summary ---
Author Organization [employer] Address [address] [place] [address] 7 [place] [address] Care Team Providers Care Data Migration Consultant Name Role Phone Иван Mackey MD Primary Care Provider [phone] Encounter Details Date Type Department Care Team ([facility] st Contact Info) Description 07/08/2025 Results Follow-Up [facility] CHC MED & PEDS [address] [place], [place] [phone] Иван Mackey MD 505 [place] [address] Albumin/Creatinine Ratio, Random Urine Social History Tobacco Use Types Packs/Day Years [...] Description 10/03/2025 9:30 AM EST Clinical Support [facility] MED & PEDS 505 [place] [address] Michaela Parrish RN 505 [place] [address] documented as of this encounter Goals Goal [...] on filedocumented in this encounter Care Teams Data Migration Consultant Relationship Specialty Start Date End Date Иван Mackey MD 505 [place] [address] PCP - General Internal Medicine 04/18/15 documented as of this encounter
--- OUTSIDE RECORDS SUMMARY | 2025-08-28 04:27 | XMS_ITS | Encounter Summary ---
Author Organization [employer] Address 75 [facility] 7 [place] [address] Care Team Providers Care Dietitian Research Name Role Phone Иван Mackey MD Primary Care Provider [phone] Reason for Visit * Reason Comments Med Refill Encounter Details Date Type Department Care Team ([facility] st Contact Info) Description 01/16/2024 Refill [facility] MED & PEDS [address] [place], [place] [phone] Иван Mackey MD [address] [place] [address] Chronic pain syndrome Social History Tobacco Use [...] [facility] 505 [place] [address] Michaela Parrish, LUBA 505 [place] [address] documented as of this encounter Goals Goal [...] syndrome documented in this encounter Care Teams Dietitian Research Relationship Specialty Start Date End Date Иван Mackey MD [address] [place] [address] PCP - General Internal Medicine 04/18/15 documented as of this encounter
--- OUTSIDE RECORDS SUMMARY | 2025-08-28 04:27 | XMS_ITS | Encounter Summary ---
Author Organization [employer] Address 75 [facility] 7 [place] [address] Care Team Providers Care Excel Analyst Name Role Phone Иван Mackey MD Primary Care Provider [phone] Encounter Details Date Type Department Care Team ([facility] st Contact Info) Description 11/14/2023 Orders Only [facility] CHC MED & PEDS [address] [place], [place] [phone] Иван Mackey MD 505 [place] [address] Primary hypertension (Primary Dx); Chronic gastritis without bleeding, unspecified gastritis type Social History Tobacco Use Types Packs/Day Years [...] [facility] MED & PEDS 505 [place] [address] Michaela Parrish, RN 505 [place] [address] documented as of this encounter Goals Goal Patient Goal Type Associated Problems Recent Progress Patient-Stated? Author Blood Pressure < 140/90 Blood Pressure 139/81(2024 9:10 AM EST) No Dellogono, Brian, PharmD Patient will adhere to medication regimen General No Dellogono, Brian, PharmD Hemoglobin A1c < 7 Result Component 6.5( 9:38 AM EST) No Dellogono, Brian, PharmD documented as of this encounter Visit Diagnoses Diagnosis Primary hypertension- Primary Unspecified essential hypertension Chronic gastritis without bleeding, unspecified gastritis type documented in this encounter Care Teams Excel Analyst Relationship Specialty Start Date End Date Иван Mackey MD 505 [place] [address] PCP - General Internal Medicine 04/18/15 documented as of this encounter
--- OUTSIDE RECORDS SUMMARY | 2025-08-28 04:27 | XMS_ITS | Encounter Summary ---
Author Organization [employer] Address [address] [place] [address] 7 [place] [address] Care Team Providers Care Senior Oracle Adf Developer Name Role Phone Иван Mackey MD Primary Care Provider [phone] Encounter Details Date Type Department Care Team (Late Contact Info) Description 02/16/2023 [facility] [employer] Information Management [address] [place] [address] Иван Mackey MD [address] [place], [place] [phone] Social History Tobacco Use Types Packs/Day Years [...] Description 10/03/2025 9:30 AM EST Clinical Support [facility] CHC MED & PEDS [address] [place], [place] [phone] Michaela Parrish RN [address] [place], [place] [phone] documented as of this encounter Goals Goal [...] on filedocumented in this encounter Care Teams Senior Oracle Adf Developer Relationship Specialty Start Date End Date Иван Mackey MD [address] [place] [address] PCP - General Internal Medicine 04/18/15 documented as of this encounter
--- OUTSIDE RECORDS SUMMARY | 2025-08-28 04:27 | XMS_ITS | Encounter Summary ---
Author Organization [employer] Address 75 [facility] 7t [place] [address] Care Team Providers Care Training Consultant Name Role Phone Иван Mackey MD Primary Care Provider [phone] Encounter Details Date Type Department Care Team (Late st Contact Info) Description 03/29/2024 Orders Only [facility] CHC MED & PEDS 505 [place], [place] [phone] Иван Mackey MD 505 [place] [address] Type 2 diabetes mellitus with hyperglycemia, without long-term current use of insulin ([facility]) (Primary Dx) Social History Tobacco Use Types Packs/Day Years [...] Description 10/03/2025 9:30 AM EST Clinical Support [facility] MED & PEDS 505 [place] [address] Michaela Parrish, LUBA 505 [place] [address] documented as of this encounter Goals Goal Patient Goal Type Associated Problems Recent Progress Patient-Stated? Author Blood Pressure < 140/90 Blood Pressure 139/81(2024 9:10 AM EST) No Brian Rios, PharmD Patient will adhere to medication regimen General No Brian Rios, PharmD Hemoglobin A1c < 7 Result Component 6.5( 9:38 AM EST) No Brian Rios PharmD documented as of this encounter Visit Diagnoses Diagnosis Type 2 diabetes mellitus with hyperglycemia, without long-term current use of insulin (HCC)- Primary documented in this encounter Care Teams Training Consultant Relationship Specialty Start Date End Date Иван Mackey MD 505 [place] [address] PCP - General Internal Medicine 04/18/15 documented as of this encounter
--- OUTSIDE RECORDS SUMMARY | 2025-08-28 04:27 | XMS_ITS | Encounter Summary ---
Author Organization [employer] [facility] Address [address] [place] [address] Care Team Providers Care Forensic Computer Examiner Name Role Phone Иван Mackey MD Primary Care Provider [phone] Reason for Visit * Reason Comments Med Refill Encounter Details Date Type Department Care Team ([facility] Contact Info) Description 09/10/2022 Refill [facility] MEDICINE [address] [place] [address] Иван Mackey MD [address] [place] [address] Acute cough; Unspecified osteoarthritis, unspecified site Social History Tobacco Use Types Packs/Day Years [...] Upcoming Encounters Date Type Department Care Team ([facility] Contact Info) Description 10/03/2025 9:30 AM EST Clinical Support [facility] CHC MED & PEDS [address] [place], [place] [phone] Michaela Parrish, LUBA [address] [place], [place] [phone] documented as of this encounter Visit Diagnoses Diagnosis Acute cough Unspecified osteoarthritis, unspecified site documented in this encounter Care Teams Forensic Computer Examiner Relationship Specialty Start Date End Date Иван Mackey MD [address] [place] [address] PCP - General Internal Medicine 04/18/15 documented as of this encounter
--- OUTSIDE RECORDS SUMMARY | 2025-08-28 04:27 | XMS_ITS | Encounter Summary ---
Author Organization [email or web address] Address 75 [facility] 7 [place] [address] Care Team Providers Care Station Examiner Name Role Phone Иван Mackey MD Primary Care Provider [phone] Encounter Details Date Type Department Care Team ([facility] st Contact Info) Description 01/17/[address] [facility] CHC MED & PEDS 505 [place], [place] [phone] Иван Mackey MD 505 [place] [address] Chronic pain syndrome Social History Tobacco Use [...] 10/03/2025 9:30 AM EST Clinical Support [facility] MED & PEDS 505 [place] [address] Michaela Parrish, RN 505 [place] [address] documented as of this encounter Goals Goal [...] syndrome documented in this encounter Care Teams Station Examiner Relationship Specialty Start Date End Date Иван Mackey MD 505 [place] [address] PCP - General Internal Medicine 04/18/15 documented as of this encounter
--- OUTSIDE RECORDS SUMMARY | 2025-08-28 04:27 | XMS_ITS | Encounter Summary ---
Author Organization [employer] Address 75 [facility] 7t [place] [address] Care Team Providers Care Kitchen Work Supervisor Name Role Phone Иван Mackey MD Primary Care Provider [phone] Encounter Details Date Type Department Care Team ([facility] st Contact Info) Description 07/08/2025 Orders Only [facility] CHC MED & PEDS [address] [place], [place] [phone] ProviderCarina MD Social History Tobacco Use Types Packs/Day Years Used Date Smoking Tobacco: Former Cigarettes 2 - 1989 Smokeless Tobacco: Never Comments:Sober since [...] Description 10/03/2025 9:30 AM EST Clinical Support [facility] MED & PEDS 505 [place] [address] Michaela Parrish RN 505 [place] [address] documented as of this encounter Goals Goal Patient Goal Type Associated Problems Recent Progress Patient-Stated? Author Blood Pressure < 140/90 Blood Pressure 139/81(2024 9:10 AM EST) No Dellogono, Brian, PharmD Patient will adhere to medication regimen General No Dellogono, Brian, PharmD Hemoglobin A1c < 7 Result Component 6.5( 9:38 AM EST) No Dellogono, Brian, PharmD documented as of this encounter Procedures Procedure Name Priority Date/Time Associated Diagnosis Comments ALBUMIN/CREATININE RATIO, RANDOM URINE Routine 07/03/2025 10:44 AM EDT documented in this encounter Results * Albumin/Creatinine Ratio, Random Urine (07/03/2025 10:44 AM EDT) Urine (Urine, Random) us Historical Provider LAB URINE ORDERABLES Janie l Result documented in this encounter Visit Diagnoses Not on filedocumented in this encounter Care Teams Kitchen Work Supervisor Relationship Specialty Start Date End Date Иван Mackey MD [address] [place] [address] PCP - General Internal Medicine 04/18/15 documented as of this encounter
--- OUTSIDE RECORDS SUMMARY | 2025-08-28 04:27 | XMS_ITS | Encounter Summary ---
Author Organization [employer] Address 75 [facility] 7 [place] [address] Care Team Providers Care Stitching Machine Operator Name Role Phone Иван Mackey MD Primary Care Provider [phone] Reason for Visit * Reason Comments Med Refill Encounter Details Date Type Department Care Team ([facility] st Contact Info) Description 02/17/2024 Refill [facility] CHC MED & PEDS [address] [place], [place] [phone] Иван Mackey MD [address] [place] [address] Chronic pain syndrome Social History Tobacco Use [...] Description 10/03/2025 9:30 AM EST Clinical Support [facility] MED & PEDS 505 [place] [address] Michaela Parrish, RN 505 [place] [address] documented as of this encounter Goals Goal [...] syndrome documented in this encounter Care Teams Stitching Machine Operator Relationship Specialty Start Date End Date Иван Mackey MD [address] [place] [address] PCP - General Internal Medicine 04/18/15 documented as of this encounter
--- OUTSIDE RECORDS SUMMARY | 2025-08-28 04:28 | XMS_ITS | Encounter Summary ---
Author Organization [employer] Address [address] [facility] [address] [place] [address] Care Team Providers Care Research Group Director Name Role Phone Иван Mackey MD Primary Care Provider [phone] Encounter Details Date Type Department Care Team ([facility] st Contact Info) Description 06/06/2025 Orders Only [facility] [address] [place] [address] Provider, MD Carina Social History Tobacco Use Types Packs/Day Years Used Date Smoking Tobacco: Former Cigarettes 2 20 1 - 1989 Smokeless Tobacco: Never Comments:Sober since [...] Description 10/03/2025 9:30 AM EST Clinical Support [facility] [address] [place] [address] Michaela Parrish, LUBA [address] [place] [address] documented as of this encounter Goals Goal [...] Associated Diagnosis Comments DIABETES EYE EXAM Routine 05/30/2025 3:57 PM EDT documented in this encounter Results * Hm Diabetes Eye Exam (05/30/2025 3:57 PM EDT) Historical Provider HEALTH MAINTENANCE Final Result documented in this encounter Visit Diagnoses Not on filedocumented in this encounter Care Teams Research Group Director Relationship Specialty Start Date End Date Иван Mackey MD [address] [place] [address] PCP - General Internal Medicine 04/18/15 documented as of this encounter
[2025-08-28 04:47] LABS: Reflex Lactate? Lactic Acid Added
--- NOTE | 2025-08-28 04:52 | PC.NURSE ---
out to CT in stable condition at this time
[2025-08-28] MEDS: iohexoL 350 MG/ML 100 ML INFUS..BTL 85 ML IV (05:12)
[2025-08-28 05:50] LABS: ~Lactic Acid-LAB USE ONLY 2.7 mmol/L (0.5-2.0)
[2025-08-28] MEDS: metroNIDAZOLE/NS 500 MG/100 ML PIGGYBACK 100 MG IV (05:51)
[2025-08-28 07:18] LABS: Reflex Lactate? 2 Y
[2025-08-28 08:48] LABS: ~Lactic Acid-LAB USE ONLY 2.6 mmol/L (0.5-2.0)
[2025-08-28 09:24] LABS: INTERNATIONAL NORM RATIO 1.3 (0.9-1.1); Prothrombin Time 15.6 SEC (11.2-13.5)
--- NOTE | 2025-08-28 09:58 | P.HPCC_ITS ---
History of Present Illness Date of Service: 08/28/25 Attending physician on admission: Lluvia Napier Chief Complaint: RUQ Pain Patient is a 75 Y M w/ hypertension, hyperlipidemia, diabetes mellitus presenting to ED on 08/28 w/ nausea/vomiting and RUQ pain found to have CT A/P c/f ascending cholangitis; ED course c/b hypotension, c/f septic shock, necessitating vasopressors Review of Systems 2 Review of Systems: Yes all other systems are reviewed and are negative [facility] Social History Social History Alcohol intake: never Smoked in Last 30 Days: No Use of substances other than those prescribed or required for medical reasons: No Advance Directives: No Advance Directives Information Provided: Yes Meds Allergies Allergy/AdvReac Type Severity Reaction Status Date / Time atorvastatin (Lipitor) Allergy Unknown Unknown Verified 08/28/25 01:30 No Known Allergies (No Known Allergy Unverified 06/05/20 15:36 Allergies*) Active Medications: Current Medications Hydrocortisone Sodium Succinate (Hydrocortisone Sod Succ/Pf 100 Mg Vial) 50 mg IVPUSH Q6H TRICIA Norepinephrine Bitartrate (Levophed) 8 mg in 250 mls @ 0 mls/hr IVCONT .Q0M TRICIA; Protocol Last Titration: 08/28/25 06:31 Dose: 0.11 mcg/kg/min, 18.77 mls/hr Piperacillin Sod/Tazobactam (Sod 3.375 gm/ Sodium Chloride) 50 mls @ 100 mls/hr IV Q6H TRICIA Home Medications ?Medication ?Instructions ?Recorded ?Confirmed ?Last Taken ?Type aspirin 81 mg tablet,delayed 81 mg PO DAILY 08/28/25 Unknown History release atorvastatin 80 mg tablet 80 mg PO BEDTIME 08/28/25 U nknown History cetirizine 10 mg tablet 10 mg PO DAILY 08/28/25 Unk nown History empagliflozin 10 mg tablet 10 mg PO DAILY 08/28/25 Un known History (Jardiance) latanoprost 0.005 % eye drops 1 drp ophthalmic (eye) B EDTIME 08/28/25 Unknown History metformin 1,000 mg tablet 1,000 mg PO BID 08/28/25 Un known History metoprolol succinate 50 mg 50 mg PO DAILY 08/28/25 Un known History tablet,extended release 24 hr omeprazole 20 mg capsule,delayed 20 mg PO BID@0630,163 0 08/28/25 Unknown History release sacubitril 24 mg-valsartan 26 mg 1 tab PO BID 08/28/25 Unknown History tablet (Entresto) spironolactone 25 mg tablet 25 mg PO DAILY 08/28/25 U nknown History tramadol 50 mg tablet 50 mg PO Q12H PRN severe aurelio n 08/28/25 Unknown History Physical Exam 2 Vital Signs: Vital Signs: Last Vital Signs Temp 98.1 F 08/28/25 08:18 Pulse 66 08/28/25 08:18 Resp 16 08/28/25 08:18 BP 97/48 L 08/28/25 08:21 Pulse Ox 95 08/28/25 08:18 O2 Del Method Room Air 08/28/25 08:18 BMI result Body Mass Index 28.8 Results Labs 08/28/25 01:59 08/28/25 01:59 Labs: Laboratory Results - last 24 hr 08/28/25 08/28/25 08/28/25 01:59 02:39 02:40 MCV 87.1 MCH 28.2 MCHC 32.4 RDW 14.1 Plt Count 108 L MPV 10.9 Immature Gran % (Auto) Cancelled Neut % (Auto) Cancelled Lymph % (Auto) Cancelled [place] % (Auto) Cancelled Eos % (Auto) Cancelled Baso % (Auto) Cancelled Lymph # (Auto) Cancelled [place] # (Auto) Cancelled Eos # (Auto) Cancelled Baso # (Auto) Cancelled Abs Immat Gran (auto) Cancelled Absolute Neuts (auto) Cancelled Absolute Nucleated RBC 0.000 Nucleated RBC % (auto) 0.0 Neutrophils % (Manual) 68 Band Neutrophils % 21 H Lymphocytes % (Manual) 3 L Monocytes % (Manual) 2 Metamyelocytes % 6 Abs Neuts (Manual) 4.1 Lymphocytes # (Manual) 0.1 L Monocytes # (Manual) 0.1 Metamyelocytes # 0.3 Toxic Vacuolation PRESENT Platelet Estimate NORMAL Large Platelets PRESENT Plt Morphology Comment NOTED RBC Morphology NOTED Polychromasia 3+ (>5) [place] Cells 3+ (>5) PT INR Anion Gap 20 Estim Creat Clear Calc 67.0 Estimated GFR > 60 Random Glucose 122 H Lactic Acid 4.5 H* Lactic Acid F/U @ 2Hr Lactic Acid F/U @ 4Hr Calcium 9.0 Total Bilirubin 5.0 H Direct Bilirubin 3.3 H AST 258 H ALT 425 H Alkaline Phosphatase 240 H Total Protein 7.1 Albumin 4.3 Lipase 21 Urine Color Urine Appearance Urine pH Ur Specific [place] Urine Protein Urine Glucose (UA) Urine Ketones Urine Blood Urine Nitrite Ur Leukocyte Esterase Urine RBC Urine WBC Ur Squamous Epith Cells Urine Bacteria Hyaline Casts Influenza Type A (PCR) NEGATIVE Influenza Type B (PCR) NEGATIVE RSV RNA Qual (PCR) NEGATIVE SARS-CoV-2 RNA (RT-PCR) NEGATIVE 08/28/25 08/28/25 08/28/25 02:49 05:18 08:02 MCV MCH MCHC RDW Plt Count MPV Immature Gran % (Auto) Neut % (Auto) Lymph % (Auto) [place] % (Auto) Eos % (Auto) Baso % (Auto) Lymph # (Auto) [place] # (Auto) Eos # (Auto) Baso # (Auto) Abs Immat Gran (auto) Absolute Neuts (auto) Absolute Nucleated RBC Nucleated RBC % (auto) Neutrophils % (Manual) Band Neutrophils % Lymphocytes % (Manual) Monocytes % (Manual) Metamyelocytes % Abs Neuts (Manual) Lymphocytes # (Manual) Monocytes # (Manual) Metamyelocytes # Toxic Vacuolation Platelet Estimate Large Platelets Plt Morphology Comment RBC Morphology Polychromasia [place] Cells PT INR Anion Gap Estim Creat Clear Calc Estimated GFR Random Glucose Lactic Acid Lactic Acid F/U @ 2Hr 2.7 H* Lactic Acid F/U @ 4Hr 2.6 H* Calcium Total Bilirubin Direct Bilirubin AST ALT Alkaline Phosphatase Total Protein Albumin Lipase Urine Color Dark Yellow Urine Appearance Cloudy Urine pH 5.5 Ur Specific [place] 1.025 Urine Protein 30 (1+) H Urine Glucose (UA) >=1000 H Urine Ketones Negative Urine Blood Negative Urine Nitrite Positive H Ur Leukocyte Esterase Small (1+) H Urine RBC 3-5 H Urine WBC 0-5 Ur Squamous Epith Cells >20 Urine Bacteria None Seen Hyaline Casts 3-5 Influenza Type A (PCR) Influenza Type B (PCR) RSV RNA Qual (PCR) SARS-CoV-2 RNA (RT-PCR) 08/28/25 09:11 MCV MCH MCHC RDW Plt Count MPV Immature Gran % (Auto) Neut % (Auto) Lymph % (Auto) [place] % (Auto) Eos % (Auto) Baso % (Auto) Lymph # (Auto) [place] # (Auto) Eos # (Auto) Baso # (Auto) Abs Immat Gran (auto) Absolute Neuts (auto) Absolute Nucleated RBC Nucleated RBC % (auto) Neutrophils % (Manual) Band Neutrophils % Lymphocytes % (Manual) Monocytes % (Manual) Metamyelocytes % Abs Neuts (Manual) Lymphocytes # (Manual) Monocytes # (Manual) Metamyelocytes # Toxic Vacuolation Platelet Estimate Large Platelets Plt Morphology Comment RBC Morphology Polychromasia Gina Cells PT 15.6 H INR 1.3 H Anion Gap Estim Creat Clear Calc Estimated GFR Random Glucose Lactic Acid Lactic Acid F/U @ 2Hr Lactic Acid F/U @ 4Hr Calcium Total Bilirubin Direct Bilirubin AST ALT Alkaline Phosphatase Total Protein Albumin Lipase Urine Color Urine Appearance Urine pH Ur Specific [place] Urine Protein Urine Glucose (UA) Urine Ketones Urine Blood Urine Nitrite Ur Leukocyte Esterase Urine RBC Urine WBC Ur Squamous Epith Cells Urine Bacteria Hyaline Casts Influenza Type A (PCR) Influenza Type B (PCR) RSV RNA Qual (PCR) SARS-CoV-2 RNA (RT-PCR) Assessment and Plan (1) Septic shock: Status: Acute (2) Ascending cholangitis: Status: Acute Plan Patient is a 75 Y M w/ hypertension, hyperlipidemia, diabetes mellitus presenting to ED on 08/28 w/ nausea/vomiting and RUQ pain found to have CT A/P c/f ascending cholangitis; ED course c/b hypotension, c/f septic shock, necessitating vasopressors N: no acute issues CV: hypotension c/f septic shock, norepinephrine gtt, wean as tolerated R: no acute issues GI: ascending cholangitis, appreciate GI and IR recommendations; NPO for procedural planning : no acute issues; to closely monitor renal indices/electrolytes H: no acute issues; to hold chemical DVT prophylaxis for procedural planning ID: ascending cholangitis, c/b septic shock, zosyn, appreciate GI and IR recommendations for source control E: diabetes mellitus, insulin sliding scale P: no acute issues
[2025-08-28 10:58] LABS: Glucose, Whole Blood 180 mg/dL (60-115)
[2025-08-28] MEDS: Lactated Ringers 1,000 ML 999 ML IV (11:27)
[2025-08-28] MEDS: Hydrocortisone Sod Succ/PF 100 MG VIAL IVPUSH (11:30)
--- NOTE | 2025-08-28 11:35 | PHA.MEDREC ---
Pharmacy Consult ? Medication Reconciliation Pharmacy has completed the medication reconciliation Spoke with daughter, Yessica, who brought in med box list. Yessica also confirmed Zyrtec, Xalatan, and Tramadol, which were in claims, but not on the med box list.
[2025-08-28 11:40] LABS: Alanine Aminotransferase 299 U/L (0-40); Albumin Level 3.6 g/dL (3.5-5.0); Alkaline Phosphatase 129 U/L (39-117); Aspartate Amino Transferase 157 U/L (5-37); Total Protein 6.2 g/dL (6.5-8.0)
[2025-08-28] MEDS: Hydrocortisone Sod Succ/PF 100 MG VIAL 50 MG IVPUSH ×2 (16:59→21:15)
[2025-08-28 17:36] LABS: Glucose, Whole Blood 165 mg/dL (60-115)
--- NOTE | 2025-08-28 19:10 | PC.NURSE ---
Patient arrived to unit from ER this morning via stretcher, transferred to bed without issues, head to toe assessment completed and documented no skin issues noted at current time, continues on Levophed as per MAR, titrated as tolerated, see MAR for full details, 1L bolus of LR given as ordered and tolerated well, denies pain or discomfort.
--- NOTE | 2025-08-28 19:39 | PM.EVENT ---
Event Note Date of Service: 08/28/25 Event Note: GI full consult dictated. Mr Mathew was seen earlier today with family. ERCP is planned for 08/29 for evaluation and treatment of possible cbd stone. They are aware of risks and benefits of the procedure and agree to proceed. Discussed with Dr. Napier. Time Spent With Patient Time: Total time managing care of this patient today ____ minutes.
--- NOTE | 2025-08-28 19:48 | MHC.SHP ---
Pre-Procedural Eval Section A - 24 Hr Update-Section A only Date of Service: 08/28/25 The patient is an INPATIENT: Yes Changes since office visit: No Cold of Flu in the past 2 weeks, No New Medical Problems, No Changes in Medication and No Patient answered all questions The patient has been examined within 24 hours of the surgical procedure. The History & Physical has been completed within 30 days and I have reviewed it.: Yes Section B - Complete if H&P > 30 days Chief Complaint: ascending cholangitis Allergies: Allergies Allergy/AdvReac Type Severity Reaction Status Date / Time atorvastatin (Lipitor) Allergy Unknown Unknown Verified 08/28/25 12:07 Plan I have reviewed the history and physical and performed a pertinent physical examination on my patient. No changes have occurred unless specified. Time Spent With Patient Time: Total time managing care of this patient today ____ minutes.
--- NOTE | 2025-08-28 19:52 | CONS_ITS ---
DATE OF SERVICE: 08/28/2025 REFERRING PHYSICIAN: Dr. Napier REASON FOR CONSULTATION: Elevated liver function tests with cholangitis and possible common bile duct stone. HISTORY OF PRESENT ILLNESS: The patient is a pleasant 75-year-old man who was admitted to the hospital on August 28 after presenting to the emergency room with complaints of nausea, vomiting, and right upper quadrant pain. This began the day prior to admission and he felt somewhat better the following day, but developed a fever and came to the emergency department. Evaluation in the emergency department includes laboratory studies showing a total bilirubin elevated along with liver function tests and subsequent imaging which was reviewed included CT scan and ultrasound imaging consistent with possible common bile duct stones. MRI could not be obtained due to the patient having a non-compatible pacemaker. The patient was admitted to the ICU and has been treated with vasopressor agents for hypotension. He currently feels well with some residual right upper quadrant pain, but has no complaints of nausea or vomiting since admission. Urine was initially dark and subsequently has improved. Liver function tests also improved since admission with bilirubin decreasing from 5.0 to 2.9. PAST MEDICAL HISTORY: 1. Coronary disease with history of coronary artery bypass grafting and pacemaker/defibrillator placement. 2. Nephrolithiasis. 3. Hyperlipidemia. CURRENT MEDICATIONS: His current medication list is reviewed in the chart. ALLERGIES: ATORVASTATIN. FAMILY HISTORY: This is reviewed with the patient and is noncontributory. SOCIAL HISTORY: There is no current tobacco, alcohol, or substance abuse. REVIEW OF SYSTEMS: SKIN: No pruritus. HEENT: Negative. CARDIOPULMONARY: He denies shortness of breath or chest pain. GASTROINTESTINAL: As above. GENITOURINARY: Negative. NEUROPSYCHIATRIC: Negative. PHYSICAL EXAMINATION: GENERAL: Shows a pleasant male, in no acute distress. VITAL SIGNS: Reviewed in the electronic medical record and are stable. SKIN: Anicteric. HEENT: Shows no scleral icterus. NECK: Without lymphadenopathy or thyromegaly. ABDOMEN: Soft without focal masses. There is some mild tenderness to palpation over the right upper quadrant. EXTREMITIES: Show Venodyne boots in place. IMPRESSION: Abdominal pain with nausea, vomiting, fever. His presentation appears consistent with a common bile duct stone causing cholangitis. His liver function tests have improved and he continues on antibiotics. I have recommended ERCP for further evaluation based on the likelihood of a small common duct stone causing his symptoms. He should eventually consider laparoscopic cholecystectomy to prevent further problems. We discussed risks and benefits of the procedure today. He understands these and agrees to proceed. Thanks for asking me to see him. I will follow him in the hospital with you. MD ALFRED Neal/STEVENSON / [id number] MTDD
[2025-08-29] VITALS (30 sets, daily range): BP systolic 87–155; BP diastolic 49–87; PULSE 60–94; RESP 12–22; TEMP 36.2–36.9; O2SAT 91–98; BMI 26.1
[2025-08-29 00:17] LABS: Glucose, Whole Blood 152 mg/dL (60-115)
[2025-08-29] MEDS: Hydrocortisone Sod Succ/PF 100 MG VIAL 50 MG IVPUSH ×3 (04:16→20:57)
[2025-08-29 05:32] LABS: Hematocrit 38.8 % (42.0-52.0); Hemoglobin 13.1 g/dl (14.0-18.0); Imm Gran Abs Auto 0.26 X10*3/uL (0.00-0.03); Imm Gran Pct Auto 1.7 % (0.0-0.4); Lymphocytes Absolute Auto 0.9 X10*3/uL (1.2-4.9); MANUAL DIFF FLAG NO; Mean Corpuscular HGB Conc 33.8 g/dl (31.0-36.0); Mean Corpuscular Hemoglobin 28.4 pg (27.0-33.0); Mean Corpuscular Volume 84.2 fL (80.0-98.0); NRBC Abs Auto 0.000 X10*3/uL (0.0-0.012); NRBC Pct Auto 0.0 /100WBC (0.0-0.2); Platelet Count 101 X10*3/uL (160-400); Red Blood Count 4.61 X10*6/uL (4.60-5.80); White Blood Count 15.4 X10*3/uL (4.8-10.8)
[2025-08-29 05:38] LABS: INTERNATIONAL NORM RATIO 1.1 (0.9-1.1); Prothrombin Time 13.8 SEC (11.2-13.5)
[2025-08-29 05:51] LABS: Alanine Aminotransferase 195 U/L (0-40); Albumin Level 3.3 g/dL (3.5-5.0); Alkaline Phosphatase 101 U/L (39-117); Anion Gap 13 (12-20); Aspartate Amino Transferase 73 U/L (5-37); Blood Urea Nitrogen 14 mg/dL (9-16); Calcium 8.0 mg/dL (8.4-10.2); Carbon Dioxide 21 mmol/L (22-29); Chloride 111 mmol/L (96-108); Creatinine Clr Calc Pharmacy 108.0; Estimated Glomerular Filt Rate > 60; Magnesium 1.5 mg/dL (1.6-2.6); Potassium 3.5 mmol/L (3.3-5.1); Sodium 141 mmol/L (135-145); Total Protein 5.8 g/dL (6.5-8.0)
[2025-08-29] MEDS: Magnesium Sulfate/H2O 2 GM/50 ML PIGGYBACK IV (06:05)
[2025-08-29] MEDS: Potassium Phosphate/NS 15 MMOL/250 ML PLAST..BAG 62.5 MMOL IV ×2 (06:05→12:01)
[2025-08-29 06:36] LABS: Glucose, Whole Blood 137 mg/dL (60-115)
--- NOTE | 2025-08-29 07:19 | PC.NURSE ---
Assumed care at 1900. Pt A+Ox4. BOWDEN. Pt still c/o ABD tenderness especially in his RUQ. Able to make needs known. Pt slept well. NPO at 0000 for procedure in AM. Pt remains on IV levophed per NOV. Call sánchez in reach. High fall precautions in place. Plan of care ongoing.
--- NOTE | 2025-08-29 09:06 | P.PNCC_ITS ---
Subjective Subjective Date of Service: 08/29/25 Interval History: no significant overnight events; interval improvement vasopressor use Critical Care Time (minutes): 60 Physical Exam 2 Vital Signs: Vital Signs: Last Vital Signs Temp 97.1 F 08/29/25 08:00 Pulse 64 08/29/25 08:00 Resp 15 08/29/25 08:00 BP 102/60 08/29/25 08:00 Pulse Ox 94 08/29/25 08:00 O2 Del Method Room Air 08/29/25 08:00 FiO2 50 08/28/25 19:00 BMI result Body Mass Index 26.1 Const: General: cooperative, healthy appearing, comfortable, no acute distress, well developed, alert, awake and Physically active O rientation/consciousness: patient oriented x3 HEENT: Head: Yes normal to inspection, Yes normocephalic and Yes atraumatic Eyes: General: appearance normal, both eyes and all related structures Neck: Neck: Yes normal visual inspection, Yes full ROM, Yes no meningeal signs, Yes trachea midline and Yes supple Chest: Chest palpation & inspection: normal inspection of the chest Resp: Other: no appreciable overt rales, rhonchi, wheezing Effort & Inspection: normal respiratory effort Cardio: Rate: regular rate Rhythm: other (paced rhythm) GI: Other: some appreciable tenderness to palpation RUQ Inspection: Yes normal to inspection, No Abdominal wall edema and No distended Palpation (GI): Soft to palpation, not firm, no guarding and not rigid Skin: General skin exam: no rashes or lesions noted Neuro: General: patient oriented x3, tone normal, moves all extremities, no meningeal signs and no focal motor deficits Extrem: General: Yes normal to inspection, Yes full ROM, Yes capillary refill normal and Yes no clubbing, cyanosis or edema Psych: Appearance: grossly normal Objective Data Labs 08/29/25 04:59 08/29/25 04:59 Labs: Laboratory Results - last 24 hr 08/28/25 08/28/25 08/28/25 09:11 10:41 10:54 WBC RBC Hgb Hct MCV MCH MCHC RDW Plt Count MPV Immature Gran % (Auto) Neut % (Auto) Lymph % (Auto) [place] % (Auto) Eos % (Auto) Baso % (Auto) Lymph # (Auto) [place] # (Auto) Eos # (Auto) Baso # (Auto) Abs Immat Gran (auto) Absolute Neuts (auto) Absolute Nucleated RBC Nucleated RBC % (auto) Hold Purple Top SEE NOTE PT 15.6 H INR 1.3 H Sodium Potassium Chloride Carbon Dioxide Anion Gap BUN Creatinine Estim Creat Clear Calc Estimated GFR POC Glucose 180 H Random Glucose Calcium Phosphorus Magnesium Total Bilirubin 2.9 H Direct Bilirubin 1.9 H AST 157 H ALT 299 H Alkaline Phosphatase 129 H Total Protein 6.2 L Albumin 3.6 Blood Type Antibody Screen 08/28/25 08/28/25 08/29/25 14:22 17:30 00:12 WBC RBC Hgb Hct MCV MCH MCHC RDW Plt Count MPV Immature Gran % (Auto) Neut % (Auto) Lymph % (Auto) [place] % (Auto) Eos % (Auto) Baso % (Auto) Lymph # (Auto) [place] # (Auto) Eos # (Auto) Baso # (Auto) Abs Immat Gran (auto) Absolute Neuts (auto) Absolute Nucleated RBC Nucleated RBC % (auto) Hold Purple Top PT INR Sodium Potassium Chloride Carbon Dioxide Anion Gap BUN Creatinine Estim Creat Clear Calc Estimated GFR POC Glucose 165 H 152 H Random Glucose Calcium Phosphorus Magnesium Total Bilirubin Direct Bilirubin AST ALT Alkaline Phosphatase Total Protein Albumin Blood Type A Positive Antibody Screen NEGATIVE 08/29/25 08/29/25 04:59 06:22 WBC 15.4 H RBC 4.61 Hgb 13.1 L Hct 38.8 L MCV 84.2 MCH 28.4 MCHC 33.8 RDW 14.1 Plt Count 101 L MPV 10.9 Immature Gran % (Auto) 1.7 H Neut % (Auto) 86.9 H Lymph % (Auto) 5.8 L [place] % (Auto) 5.2 Eos % (Auto) 0.1 Baso % (Auto) 0.3 Lymph # (Auto) 0.9 L [place] # (Auto) 0.8 Eos # (Auto) 0.0 Baso # (Auto) 0.0 Abs Immat Gran (auto) 0.26 H Absolute Neuts (auto) 13.4 H Absolute Nucleated RBC 0.000 Nucleated RBC % (auto) 0.0 Hold Purple Top PT 13.8 H INR 1.1 Sodium 141 Potassium 3.5 Chloride 111 H Carbon Dioxide 21 L Anion Gap 13 BUN 14 Creatinine 0.61 Estim Creat Clear Calc 108.0 Estimated GFR > 60 POC Glucose 137 H Random Glucose 139 H Calcium 8.0 L D Phosphorus 1.7 L Magnesium 1.5 L Total Bilirubin 1.4 H Direct Bilirubin 0.8 H AST 73 H ALT 195 H Alkaline Phosphatase 101 Total Protein 5.8 L Albumin 3.3 L Blood Type Antibody Screen Microbiology Microbiology Results: Microbiology 08/28/25 03:14 Blood - Venous Blood Culture - Preliminary Gram negative cathi 08/28/25 02:39 Blood - Venous Blood Culture - Preliminary Gram negative cathi Progress Note: A&P Assessment and plan (1) Septic shock: Status: Acute (2) Ascending cholangitis: Status: Acute Plan Patient is a 75 Y M w/ hypertension, hyperlipidemia, diabetes mellitus presenting to ED on 08/28 w/ nausea/vomiting and RUQ pain found to have CT A/P c/f ascending cholangitis; ED course c/b hypotension, c/f septic shock, necessitating vasopressors N: no acute issues CV: hypotension c/f septic shock, norepinephrine gtt, wean as tolerated R: no acute issues GI: ascending cholangitis, appreciate GI recommendations, plan for ERCP 08/29; NPO for procedural planning : no acute issues; to closely monitor renal indices/electrolytes H: no acute issues; to hold chemical DVT prophylaxis for procedural planning ID: ascending cholangitis, c/b septic shock, zosyn, appreciate GI and IR recommendations for source control E: diabetes mellitus, insulin sliding scale P: no acute issues S: daily updates given to family at bedside Quality Stroke Does the patient have a stroke diagnosis?: No VTE Prior VTE?: No VTE Risk Level:: Medical - moderate - high VTE Device Contraindication: N/A - Device Ordered VTE Drug Contraindication: Treatment Not Tolerated
[2025-08-29] MEDS: Albumin Human 25 % 50 ML 100 ML IV (09:19)
[2025-08-29] MEDS: Calcium Gluconate/NaCl,Iso-Osm 1 GM/50 ML PLAST..BAG IV (09:49)
--- NOTE | 2025-08-29 10:12 | P.PNGI_ITS ---
Subjective Subjective Date of Service: 08/29/25 Interval History: some ruq pain Critical Care Time (minutes): 30 Physical Exam 2 Vital Signs: Vital Signs: Last Vital Signs Temp 97.1 F 08/29/25 08:00 Pulse 94 08/29/25 09:47 Resp 18 08/29/25 09:00 BP 128/66 08/29/25 09:47 Pulse Ox 94 08/29/25 09:00 O2 Del Method Room Air 08/29/25 09:00 FiO2 50 08/28/25 19:00 BMI result Body Mass Index 26.1 GI: Other: abd is soft, with mild ruq pain to palpation Objective Data Labs 08/29/25 04:59 08/29/25 04:59 Labs: Laboratory Results - last 24 hr 08/28/25 08/28/25 08/28/25 10:41 10:54 14:22 WBC RBC Hgb Hct MCV MCH MCHC RDW Plt Count MPV Immature Gran % (Auto) Neut % (Auto) Lymph % (Auto) [place] % (Auto) Eos % (Auto) Baso % (Auto) Lymph # (Auto) [place] # (Auto) Eos # (Auto) Baso # (Auto) Abs Immat Gran (auto) Absolute Neuts (auto) Absolute Nucleated RBC Nucleated RBC % (auto) Hold Purple Top SEE NOTE PT INR Sodium Potassium Chloride Carbon Dioxide Anion Gap BUN Creatinine Estim Creat Clear Calc Estimated GFR POC Glucose 180 H Random Glucose Calcium Phosphorus Magnesium Total Bilirubin 2.9 H Direct Bilirubin 1.9 H AST 157 H ALT 299 H Alkaline Phosphatase 129 H Total Protein 6.2 L Albumin 3.6 Blood Type A Positive Antibody Screen NEGATIVE 08/28/25 08/29/25 08/29/25 17:30 00:12 04:59 WBC 15.4 H RBC 4.61 Hgb 13.1 L Hct 38.8 L MCV 84.2 MCH 28.4 MCHC 33.8 RDW 14.1 Plt Count 101 L MPV 10.9 Immature Gran % (Auto) 1.7 H Neut % (Auto) 86.9 H Lymph % (Auto) 5.8 L [place] % (Auto) 5.2 Eos % (Auto) 0.1 Baso % (Auto) 0.3 Lymph # (Auto) 0.9 L [place] # (Auto) 0.8 Eos # (Auto) 0.0 Baso # (Auto) 0.0 Abs Immat Gran (auto) 0.26 H Absolute Neuts (auto) 13.4 H Absolute Nucleated RBC 0.000 Nucleated RBC % (auto) 0.0 Hold Purple Top PT 13.8 H INR 1.1 Sodium 141 Potassium 3.5 Chloride 111 H Carbon Dioxide 21 L Anion Gap 13 BUN 14 Creatinine 0.61 Estim Creat Clear Calc 108.0 Estimated GFR > 60 POC Glucose 165 H 152 H Random Glucose 139 H Calcium 8.0 L D Phosphorus 1.7 L Magnesium 1.5 L Total Bilirubin 1.4 H Direct Bilirubin 0.8 H AST 73 H ALT 195 H Alkaline Phosphatase 101 Total Protein 5.8 L Albumin 3.3 L Blood Type Antibody Screen 08/29/25 06:22 WBC RBC Hgb Hct MCV MCH MCHC RDW Plt Count MPV Immature Gran % (Auto) Neut % (Auto) Lymph % (Auto) [place] % (Auto) Eos % (Auto) Baso % (Auto) Lymph # (Auto) [place] # (Auto) Eos # (Auto) Baso # (Auto) Abs Immat Gran (auto) Absolute Neuts (auto) Absolute Nucleated RBC Nucleated RBC % (auto) Hold Purple Top PT INR Sodium Potassium Chloride Carbon Dioxide Anion Gap BUN Creatinine Estim Creat Clear Calc Estimated GFR POC Glucose 137 H Random Glucose Calcium Phosphorus Magnesium Total Bilirubin Direct Bilirubin AST ALT Alkaline Phosphatase Total Protein Albumin Blood Type Antibody Screen Microbiology Microbiology Results: Microbiology 08/28/25 03:14 Blood - Venous Blood Culture - Preliminary Gram negative cathi 08/28/25 02:39 Blood - Venous Blood Culture - Preliminary Gram negative cathi Procedures Date of Service Date of Service: 08/29/25 Progress Note: A&P Assessment and plan (1) Ascending cholangitis: Status: Acute Assessment and Plan: plan is for ERCP today discussed with pt and daughters. Time Spent With Patient Time: Total time managing care of this patient today ____ minutes. Quality Stroke Does the patient have a stroke diagnosis?: No VTE Prior VTE?: No VTE Risk Level:: Medical - moderate - high VTE Device Contraindication: N/A - Device Ordered VTE Drug Contraindication: Treatment Not Tolerated
--- NOTE | 2025-08-29 11:17 | PM.CNGS ---
History of Present Illness Consult details Consult date: 08/29/25 Reason for consult: gallstones (cholangitis) Requesting physician: Lluvia Napier Narrative: 75-year-old male with a history of hypertension, hyperlipidemia, type 2 diabetes, COPD, s/p CABG 4, ACID who is currently admitted to the ICU for septic shock secondary to ascending cholangitis. He presented to the ED on 08/28 with a 2 day history of right upper quadrant abdominal pain that continued to worsen with associated nausea and vomiting. He presented after developing a fever at home. Upon presentation was borderline hypotensive, tachycardic, febrile. Workup in the ED significant for lactic acid of 4.5, and markedly abnormal LFTs with T bili 5.0, direct bili 3.3, AST to 58, ALT 425, and alkaline phosphatase 240. CT of the abdomen showing a distended gallbladder with cholelithiasis, possible small stones in the distal common bile duct. He had some improvement in lactic acidosis after fluid repletion but remained hypotensive requiring pressors and was thus admitted to the ICU. He was started on IV vancomycin and Zosyn. GI was consulted who is planning for ERCP this afternoon. He is currently weaning off pressors, blood pressure today is normotensive. He feels okay today, feels like he is improving. Complains of right upper quadrant pain. He states that he has been suffering with this intermittent right upper quadrant pain for a few weeks but acutely worsened a few days before he presented to the emergency department. He denies any abdominal surgery report but he is s/p CABG 4. Denies smoking, alcohol use, endorses occasional marijuana use to sleep. Denies other drug use. [facility] Past Medical History Medical History (Updated 08/29/25 @ 12:07 by Eran Bach PA-C) Diabetes mellitus, type 2 COPD (chronic obstructive pulmonary disease) Hypertension Coronary artery disease Hypercholesteremia Surgical History Surgical History (Updated 08/28/25 @ 12:11 by Courtney Mercado RN) H/O coronary artery bypass surgery AICD (automatic cardioverter/defibrillator) present Social History Social History Household Members: Spouse and Children Household Members Other:: 4 Housing: House Do you presently have visiting nurse or other home services: No Alcohol intake: never Patient Tobacco Use Status: Former Tobacco user Smoked in Last 30 Days: No e-Cigarette/Vaping Use: Never Used Use of substances other than those prescribed or required for medical reasons: No Currently Displaying Signs/Symptoms of Drug Intoxication Withdrawal: No Have you been hit, kicked, punched, or otherwise hurt by someone within the past year? If so, by whom?: No Do you feel safe in your current relationship?: Yes Is there a partner from a previous relationship who is making you feel unsafe now?: No Are you made to feel afraid or neglected: No [facility] Healthcare Practices: [facility] Advance Directives: No Advance Directives Information Provided: Yes Recently lost weight without trying: No Meds Allergies Allergy/AdvReac Type Severity Reaction Status Date / Time atorvastatin (Lipitor) Allergy Unknown Unknown Verified 08/28/25 12:07 Active Medications: Current Medications Dextrose (Dextrose 50 % 25 Gm/50 Ml Syringe) 25 gm IVPUSH Q15M PRN; Protocol PRN Reason: per Hypoglycemia Standing Ord. Glucose (Glucose Gel 15 Gm Gel..Gram.) 15 gm PO Q15M PRN; Protocol PRN Reason: per Hypoglycemia Standing Ord. Hydrocortisone Sodium Succinate (Hydrocortisone Sod Succ/Pf 100 Mg Vial) 50 mg IVPUSH Q8H TRICIA Norepinephrine Bitartrate (Levophed) 8 mg in 250 mls @ 0 mls/hr IVCONT .Q0M TRICIA; Protocol Last Titration: 08/29/25 10:40 Dose: 0.02 mcg/kg/min, 3.41 mls/hr Piperacillin Sod/Tazobactam (Sod 3.375 gm/ Sodium Chloride) 50 mls @ 100 mls/hr IV Q6H TRICIA Last Admin: 08/29/25 10:39 Dose: 100 mls/hr Potassium Phosphate (Kphos) 15 mmol in 250 mls @ 62.5 mls/hr IV Q4H TRICIA Stop: 08/29/25 13:59 Last Infusion: 08/29/25 09:20 Dose: 0 mls/hr Insulin Human Lispro (Insulin Lispro 100 Unit/Ml 3 Ml Vial) 0 unit SUBCUT Q6H TRICIA; Protocol Last Admin: 08/29/25 06:22 Dose: Not Given Home Medications ?Medication ?Instructions ?Recorded ?Confirmed ?Last Taken ?Type aspirin 81 mg tablet,delayed 81 mg PO DAILY 08/28/25 08/28/25 Unknown History release atorvastatin 80 mg tablet 80 mg PO BEDTIME 08/28/25 08/28/25 Unknown History cetirizine 10 mg tablet 10 mg PO DAILY 08/28/25 08/28/25 Unknown History empagliflozin 10 mg tablet 10 mg PO DAILY 08/28/25 08/28/25 Unknown History (Jardiance) latanoprost 0.005 % eye drops 1 drp ophthalmic (eye) BEDTIME 08/28/25 08/28/25 Unknown History metformin 1,000 mg tablet 1,000 mg PO BID 08/28/25 08/28/25 Unknown History metoprolol succinate 50 mg 50 mg PO DAILY 08/28/25 08/28/25 Unknown History tablet,extended release 24 hr omeprazole 20 mg capsule,delayed 20 mg PO BID@0630,1630 08/28/25 08/28/25 Unknown History release sacubitril 24 mg-valsartan 26 mg 1 tab PO BID 08/28/25 08/28/25 Unknown History tablet (Entresto) spironolactone 25 mg tablet 25 mg PO DAILY 08/28/25 08/28/25 Unknown History tramadol 50 mg tablet 50 mg PO Q12H PRN severe pain 08/28/25 08/28/25 Unknown History Physical Exam Vital Signs: Vital Signs: Last Vital Signs Temp 97.1 F 08/29/25 08:00 Pulse 94 08/29/25 10:40 Resp 15 08/29/25 10:00 BP 89/54 L 08/29/25 10:40 Pulse Ox 94 08/29/25 10:00 O2 Del Method Room Air 08/29/25 10:00 FiO2 50 08/28/25 19:00 BMI result Body Mass Index 26.1 Const: General: comfortable and no acute distress Nutritional Appearance: obese Orientation/consciousness: patient oriented x3 Resp: Effort & Inspection: normal respiratory effort and able to speak in complete sentences GI: Inspection: No distended Palpation (GI): Soft to palpation and Tenderness to palpation present (GI) (Right-sided) in the RUQ (Focal point, light palpation) and Gardiner's sign positive; with no rebound tenderness Neuro: General: patient oriented x3 Results Labs 08/29/25 04:59 08/29/25 04:59 Labs: Abnormal lab results 08/28/25 08/28/25 08/29/25 Range/Units 10:41 17:30 00:12 WBC (4.8-10.8) X10*3/uL Hgb (14.0-18.0) g/dl Hct (42.0-52.0) % Plt Count (160-400) X10*3/uL Immature Gran % (Auto) (0.0-0.4) % Neut % (Auto) (45-73) % Lymph % (Auto) (20-40) % Lymph # (Auto) (1.2-4.9) X10*3/uL Abs Immat Gran (auto) (0.00-0.03) X10*3/uL Absolute Neuts (auto) (2.0-8.3) x10*3/uL PT (11.2-13.5) SEC Chloride (96-108) mmol/L Carbon Dioxide (22-29) mmol/L POC Glucose 165 H 152 H (60-115) mg/dL Random Glucose (60-115) mg/dL Calcium (8.4-10.2) mg/dL Phosphorus (2.7-4.5) mg/dL Magnesium (1.6-2.6) mg/dL Total Bilirubin 2.9 H (0.0-1.0) mg/dL Direct Bilirubin 1.9 H (0.0-0.5) mg/dL AST 157 H (5-37) U/L ALT 299 H (0-40) U/L Alkaline Phosphatase 129 H (39-117) U/L Total Protein 6.2 L (6.5-8.0) g/dL Albumin (3.5-5.0) g/dL 08/29/25 08/29/25 Range/Units 04:59 06:22 WBC 15.4 H (4.8-10.8) X10*3/uL Hgb 13.1 L (14.0-18.0) g/dl Hct 38.8 L (42.0-52.0) % Plt Count 101 L (160-400) X10*3/uL Immature Gran % (Auto) 1.7 H (0.0-0.4) % Neut % (Auto) 86.9 H (45-73) % Lymph % (Auto) 5.8 L (20-40) % Lymph # (Auto) 0.9 L (1.2-4.9) X10*3/uL Abs Immat Gran (auto) 0.26 H (0.00-0.03) X10*3/uL Absolute Neuts (auto) 13.4 H (2.0-8.3) x10*3/uL PT 13.8 H (11.2-13.5) SEC Chloride 111 H (96-108) mmol/L Carbon Dioxide 21 L (22-29) mmol/L POC Glucose 137 H (60-115) mg/dL Random Glucose 139 H (60-115) mg/dL Calcium 8.0 L D (8.4-10.2) mg/dL Phosphorus 1.7 L (2.7-4.5) mg/dL Magnesium 1.5 L (1.6-2.6) mg/dL Total Bilirubin 1.4 H (0.0-1.0) mg/dL Direct Bilirubin 0.8 H (0.0-0.5) mg/dL AST 73 H (5-37) U/L ALT 195 H (0-40) U/L Alkaline Phosphatase (39-117) U/L Total Protein 5.8 L (6.5-8.0) g/dL Albumin 3.3 L (3.5-5.0) g/dL Short CBC 08/29/25 Range/Units 04:59 WBC 15.4 H (4.8-10.8) X10*3/uL Hgb 13.1 L (14.0-18.0) g/dl Hct 38.8 L (42.0-52.0) % Plt Count 101 L (160-400) X10*3/uL BMP 08/29/25 04:59 Sodium 141 Potassium 3.5 Chloride 111 H Carbon Dioxide 21 L BUN 14 Creatinine 0.61 Calcium 8.0 L D Liver Function 08/28/25 08/29/25 Range/Units 10:41 04:59 Total Bilirubin 2.9 H 1.4 H (0.0-1.0) mg/dL Direct Bilirubin 1.9 H 0.8 H (0.0-0.5) mg/dL AST 157 H 73 H (5-37) U/L ALT 299 H 195 H (0-40) U/L Alkaline Phosphatase 129 H 101 (39-117) U/L Albumin 3.6 3.3 L (3.5-5.0) g/dL Urine 08/28/25 Range/Units 02:49 Urine Color Dark Yellow Urine Appearance Cloudy Urine pH 5.5 (5.0-9.0) Ur Specific [place] 1.025 (1.005-1.025) Urine Protein 30 (1+) H (Neg-Trace) mg/dL Urine Glucose (UA) >=1000 H (Negative) mg/dL All other labs normal. Assessment and Plan (1) Ascending cholangitis: Status: Acute (2) Septic shock: Qualifiers: Sepsis type: sepsis due to unspecified organism Qualified Code(s): A41.9 - Sepsis, unspecified organism; R65.21 - Severe sepsis with septic shock Status: Acute Plan 75-year-old male with a history of hypertension, hyperlipidemia, type 2 diabetes, COPD, s/p CABG 4, ACID who is currently admitted to the ICU for septic shock secondary to ascending cholangitis. Currently weaning off pressors overall improving. He is on IV vancomycin, IV Zosyn. Seen by GI who is performing ERCP this afternoon. Workup in the ED significant for lactic acid of 4.5, and markedly abnormal LFTs with T bili 5.0, direct bili 3.3, AST to 58, ALT 425, and alkaline phosphatase 240. CT of the abdomen showing a distended gallbladder with cholelithiasis, possible small stones in the distal common bile duct. Labs currently trending down aside from white count which is now 15.9 today. His liver enzymes remain elevated but improving. On exam abdomen is soft, tender mostly in the right upper quadrant with positive Gardiner's sign. We discussed options for treatment which includes laparoscopic cholecystectomy as an outpatient after he has been stabilized and discharge. He is agreeable to this plan. This will allow for some of the inflammation surrounding the gallbladder to resolve. For now would continue with IV antibiotics, monitor liver enzymes, white count in the next few days after the ERCP. After discharged with follow up with us in 1-2 weeks to scheduled for surgical procedure. We will continue to follow along during this admission for any urgent surgical intervention that may arise Continue antibiotics ERCP this afternoon Outpatient laparoscopic cholecystectomy Procedures Date of Service Date of Service: 08/29/25
[2025-08-29 11:48] LABS: Glucose, Whole Blood 160 mg/dL (60-115)
--- NOTE | 2025-08-29 12:53 | MHC.SHP ---
Pre-Procedural Eval Section A - 24 Hr Update-Section A only Date of Service: 08/29/25 The patient is an INPATIENT: Yes The patient has been examined within 24 hours of the surgical procedure. The History & Physical has been completed within 30 days and I have reviewed it.: Yes Section B - Complete if H&P > 30 days Chief Complaint: ascending cholangitis Allergies: Allergies Allergy/AdvReac Type Severity Reaction Status Date / Time atorvastatin (Lipitor) Allergy Unknown Unknown Verified 08/28/25 12:07 Plan I have reviewed the history and physical and performed a pertinent physical examination on my patient. No changes have occurred unless specified. Time Spent With Patient Time: Total time managing care of this patient today ____ minutes.
--- NOTE | 2025-08-29 14:29 | MHC.CM.PN ---
Met with pt and spouse to review d/c planning needs: Pt is independent with no services or DME: spouse to transport pt to home: IMM in chart, HCP copy requested.
--- NOTE | 2025-08-29 15:33 | HO.ANESPROP2 ---
HPI - Anesthesia Eval Consult details Narrative: 75 yo M admitted with ascending cholangitis. Has an AICD. In ICU on norepinephrine gtt. Now presenting for ERCP. [facility] Active Problems Active Problems: All Active Problems Septic shock (Acute) Sepsis (Acute) Ascending cholangitis (Acute) Past Medical History Medical History (Updated 08/29/25 @ 12:07 by Eran Bach PA-C) Diabetes mellitus, type 2 COPD (chronic obstructive pulmonary disease) Hypertension Coronary artery disease Hypercholesteremia Family History Family history of problems with anesthesia: No Surgical History Surgical History (Updated 08/28/25 @ 12:11 by Courtney Mercado RN) H/O coronary artery bypass surgery AICD (automatic cardioverter/defibrillator) present History of Problems with Anesthesia: No Social History Social History Household Members: Spouse and Children Household Members Other:: 4 Housing: House Do you presently have visiting nurse or other home services: No Alcohol intake: never Patient Tobacco Use Status: Former Tobacco user Smoked in Last 30 Days: No e-Cigarette/Vaping Use: Never Used Use of substances other than those prescribed or required for medical reasons: No Currently Displaying Signs/Symptoms of Drug Intoxication Withdrawal: No Have you been hit, kicked, punched, or otherwise hurt by someone within the past year? If so, by whom?: No Do you feel safe in your current relationship?: Yes Is there a partner from a previous relationship who is making you feel unsafe now?: No Are you made to feel afraid or neglected: No [employer] [facility] Practices: [employer] Advance Directives: No Advance Directives Information Provided: Yes Recently lost weight without trying: No Meds Allergies Allergy/AdvReac Type Severity Reaction Status Date / Time atorvastatin (Lipitor) Allergy Unknown Unknown Verified 08/28/25 12:07 Active Medications: Current Medications Dextrose (Dextrose 50 % 25 Gm/50 Ml Syringe) 25 gm IVPUSH Q15M PRN; Protocol PRN Reason: per Hypoglycemia Standing Ord. Glucose (Glucose Gel 15 Gm Gel..Gram.) 15 gm PO Q15M PRN; Protocol PRN Reason: per Hypoglycemia Standing Ord. Hydrocortisone Sodium Succinate (Hydrocortisone Sod Succ/Pf 100 Mg Vial) 50 mg IVPUSH Q8H [facility] Last Admin: 08/29/25 12:03 Dose: 50 mg Norepinephrine Bitartrate (Levophed) 8 mg in 250 mls @ 0 mls/hr IVCONT .Q0M [facility]; Protocol Last Titration: 08/29/25 10:40 Dose: 0.02 mcg/kg/min, 3.41 mls/hr Piperacillin Sod/Tazobactam (Sod 3.375 gm/ Sodium Chloride) 50 mls @ 100 mls/hr IV Q6H [facility] Last Infusion: 08/29/25 11:37 Dose: Infused Insulin Human Lispro (Insulin Lispro 100 Unit/Ml 3 Ml Vial) 0 unit SUBCUT Q6H [facility]; Protocol Last Admin: 08/29/25 12:03 Dose: 2 unit Home Medications ?Medication ?Instructions ?Recorded ?Confirmed ?Last Taken ?Type aspirin 81 mg tablet,delayed 81 mg PO DAILY 08/28/25 08/28/25 Unknown History release atorvastatin 80 mg tablet 80 mg PO BEDTIME 08/28/25 08/28/25 Unknown History cetirizine 10 mg tablet 10 mg PO DAILY 08/28/25 08/28/25 Unknown History empagliflozin 10 mg tablet 10 mg PO DAILY 08/28/25 08/28/25 Unknown History (Jardiance) latanoprost 0.005 % eye drops 1 drp ophthalmic (eye) BEDTIME 08/28/25 08/28/25 Unknown History metformin 1,000 mg tablet 1,000 mg PO BID 08/28/25 08/28/25 Unknown History metoprolol succinate 50 mg 50 mg PO DAILY 08/28/25 08/28/25 Unknown History tablet,extended release 24 hr omeprazole 20 mg capsule,delayed 20 mg PO BID@0630,1630 08/28/25 08/28/25 Unknown History release sacubitril 24 mg-valsartan 26 mg 1 tab PO BID 08/28/25 08/28/25 Unknown History tablet (Entresto) spironolactone 25 mg tablet 25 mg PO DAILY 08/28/25 08/28/25 Unknown History tramadol 50 mg tablet 50 mg PO Q12H PRN severe pain 08/28/25 08/28/25 Unknown History Exam Exam Date and Time: 08/29/25 1520 Height,Weight and Vital Signs: Height 5 ft 10 in Weight 82.4 kg Last Vital Signs Temp 97.2 F 08/29/25 12:00 Pulse 60 08/29/25 14:52 Resp 21 H 08/29/25 14:52 BP 135/78 08/29/25 14:52 Pulse Ox 92 08/29/25 14:52 O2 Del Method Room Air 08/29/25 14:52 FiO2 50 08/28/25 19:00 Pertinent Lab Results Pertinent Lab Results: Laboratory Tests 08/28/25 08/28/25 08/28/25 01:59 02:39 02:40 WBC 4.6 L RBC 5.56 Hgb 15.7 Hct 48.4 MCV 87.1 MCH 28.2 MCHC 32.4 RDW 14.1 Plt Count 108 L MPV 10.9 Immature Gran % (Auto) Cancelled Neut % (Auto) Cancelled Lymph % (Auto) Cancelled [place] % (Auto) Cancelled Eos % (Auto) Cancelled Baso % (Auto) Cancelled Lymph # (Auto) Cancelled [place] # (Auto) Cancelled Eos # (Auto) Cancelled Baso # (Auto) Cancelled Abs Immat Gran (auto) Cancelled Absolute Neuts (auto) Cancelled Absolute Nucleated RBC 0.000 Nucleated RBC % (auto) 0.0 Neutrophils % (Manual) 68 Band Neutrophils % 21 H Lymphocytes % (Manual) 3 L Monocytes % (Manual) 2 Metamyelocytes % 6 Abs Neuts (Manual) 4.1 Lymphocytes # (Manual) 0.1 L Monocytes # (Manual) 0.1 Metamyelocytes # 0.3 Toxic Vacuolation PRESENT Platelet Estimate NORMAL Large Platelets PRESENT Plt Morphology Comment NOTED RBC Morphology NOTED Polychromasia 3+ (>5) Gina Cells 3+ (>5) Hold Purple Top PT INR Sodium 138 Potassium 4.0 Chloride 101 Carbon Dioxide 21 L Anion Gap 20 BUN 32 H Creatinine 1.08 Estim Creat Clear Calc 67.0 Estimated GFR > 60 POC Glucose Random Glucose 122 H Lactic Acid 4.5 H* Lactic Acid F/U @ 2Hr Lactic Acid F/U @ 4Hr Calcium 9.0 Phosphorus Magnesium Total Bilirubin 5.0 H Direct Bilirubin 3.3 H AST 258 H ALT 425 H Alkaline Phosphatase 240 H Total Protein 7.1 Albumin 4.3 Lipase 21 Urine Color Urine Appearance Urine pH Ur Specific [place] Urine Protein Urine Glucose (UA) Urine Ketones Urine Blood Urine Nitrite Ur Leukocyte Esterase Urine RBC Urine WBC Ur Squamous Epith Cells Urine Bacteria Hyaline Casts Influenza Type A (PCR) NEGATIVE Influenza Type B (PCR) NEGATIVE RSV RNA Qual (PCR) NEGATIVE SARS-CoV-2 RNA (RT-PCR) NEGATIVE Blood Type Antibody Screen 08/28/25 08/28/25 08/28/25 02:49 05:18 08:02 WBC RBC Hgb Hct MCV MCH MCHC RDW Plt Count MPV Immature Gran % (Auto) Neut % (Auto) Lymph % (Auto) [place] % (Auto) Eos % (Auto) Baso % (Auto) Lymph # (Auto) [place] # (Auto) Eos # (Auto) Baso # (Auto) Abs Immat Gran (auto) Absolute Neuts (auto) Absolute Nucleated RBC Nucleated RBC % (auto) Neutrophils % (Manual) Band Neutrophils % Lymphocytes % (Manual) Monocytes % (Manual) Metamyelocytes % Abs Neuts (Manual) Lymphocytes # (Manual) Monocytes # (Manual) Metamyelocytes # Toxic Vacuolation Platelet Estimate Large Platelets Plt Morphology Comment RBC Morphology Polychromasia Gian Cells Hold Purple Top PT INR Sodium Potassium Chloride Carbon Dioxide Anion Gap BUN Creatinine Estim Creat Clear Calc Estimated GFR POC Glucose Random Glucose Lactic Acid Lactic Acid F/U @ 2Hr 2.7 H* Lactic Acid F/U @ 4Hr 2.6 H* Calcium Phosphorus Magnesium Total Bilirubin Direct Bilirubin AST ALT Alkaline Phosphatase Total Protein Albumin Lipase Urine Color Dark Yellow Urine Appearance Cloudy Urine pH 5.5 Ur Specific [place] 1.025 Urine Protein 30 (1+) H Urine Glucose (UA) >=1000 H Urine Ketones Negative Urine Blood Negative Urine Nitrite Positive H Ur Leukocyte Esterase Small (1+) H Urine RBC 3-5 H Urine WBC 0-5 Ur Squamous Epith Cells >20 Urine Bacteria None Seen Hyaline Casts 3-5 Influenza Type A (PCR) Influenza Type B (PCR) RSV RNA Qual (PCR) SARS-CoV-2 RNA (RT-PCR) Blood Type Antibody Screen 08/28/25 08/28/25 08/28/25 09:11 10:41 10:54 WBC RBC Hgb Hct MCV MCH MCHC RDW Plt Count MPV Immature Gran % (Auto) Neut % (Auto) Lymph % (Auto) [place] % (Auto) Eos % (Auto) Baso % (Auto) Lymph # (Auto) [place] # (Auto) Eos # (Auto) Baso # (Auto) Abs Immat Gran (auto) Absolute Neuts (auto) Absolute Nucleated RBC Nucleated RBC % (auto) Neutrophils % (Manual) Band Neutrophils % Lymphocytes % (Manual) Monocytes % (Manual) Metamyelocytes % Abs Neuts (Manual) Lymphocytes # (Manual) Monocytes # (Manual) Metamyelocytes # Toxic Vacuolation Platelet Estimate Large Platelets Plt Morphology Comment RBC Morphology Polychromasia Gina Cells Hold Purple Top SEE NOTE PT 15.6 H INR 1.3 H Sodium Potassium Chloride Carbon Dioxide Anion Gap BUN Creatinine Estim Creat Clear Calc Estimated GFR POC Glucose 180 H Random Glucose Lactic Acid Lactic Acid F/U @ 2Hr Lactic Acid F/U @ 4Hr Calcium Phosphorus Magnesium Total Bilirubin 2.9 H Direct Bilirubin 1.9 H AST 157 H ALT 299 H Alkaline Phosphatase 129 H Total Protein 6.2 L Albumin 3.6 Lipase Urine Color Urine Appearance Urine pH Ur Specific [place] Urine Protein Urine Glucose (UA) Urine Ketones Urine Blood Urine Nitrite Ur Leukocyte Esterase Urine RBC Urine WBC Ur Squamous Epith Cells Urine Bacteria Hyaline Casts Influenza Type A (PCR) Influenza Type B (PCR) RSV RNA Qual (PCR) SARS-CoV-2 RNA (RT-PCR) Blood Type Antibody Screen 08/28/25 08/28/25 08/29/25 14:22 17:30 00:12 WBC RBC Hgb Hct MCV MCH MCHC RDW Plt Count MPV Immature Gran % (Auto) Neut % (Auto) Lymph % (Auto) [place] % (Auto) Eos % (Auto) Baso % (Auto) Lymph # (Auto) [place] # (Auto) Eos # (Auto) Baso # (Auto) Abs Immat Gran (auto) Absolute Neuts (auto) Absolute Nucleated RBC Nucleated RBC % (auto) Neutrophils % (Manual) Band Neutrophils % Lymphocytes % (Manual) Monocytes % (Manual) Metamyelocytes % Abs Neuts (Manual) Lymphocytes # (Manual) Monocytes # (Manual) Metamyelocytes # Toxic Vacuolation Platelet Estimate Large Platelets Plt Morphology Comment RBC Morphology Polychromasia Gina Cells Hold Purple Top PT INR Sodium Potassium Chloride Carbon Dioxide Anion Gap BUN Creatinine Estim Creat Clear Calc Estimated GFR POC Glucose 165 H 152 H Random Glucose Lactic Acid Lactic Acid F/U @ 2Hr Lactic Acid F/U @ 4Hr Calcium Phosphorus Magnesium Total Bilirubin Direct Bilirubin AST ALT Alkaline Phosphatase Total Protein Albumin Lipase Urine Color Urine Appearance Urine pH Ur Specific [place] Urine Protein Urine Glucose (UA) Urine Ketones Urine Blood Urine Nitrite Ur Leukocyte Esterase Urine RBC Urine WBC Ur Squamous Epith Cells Urine Bacteria Hyaline Casts Influenza Type A (PCR) Influenza Type B (PCR) RSV RNA Qual (PCR) SARS-CoV-2 RNA (RT-PCR) Blood Type A Positive Antibody Screen NEGATIVE 08/29/25 08/29/25 08/29/25 04:59 06:22 11:44 WBC 15.4 H RBC 4.61 Hgb 13.1 L Hct 38.8 L MCV 84.2 MCH 28.4 MCHC 33.8 RDW 14.1 Plt Count 101 L MPV 10.9 Immature Gran % (Auto) 1.7 H Neut % (Auto) 86.9 H Lymph % (Auto) 5.8 L [place] % (Auto) 5.2 Eos % (Auto) 0.1 Baso % (Auto) 0.3 Lymph # (Auto) 0.9 L [place] # (Auto) 0.8 Eos # (Auto) 0.0 Baso # (Auto) 0.0 Abs Immat Gran (auto) 0.26 H Absolute Neuts (auto) 13.4 H Absolute Nucleated RBC 0.000 Nucleated RBC % (auto) 0.0 Neutrophils % (Manual) Band Neutrophils % Lymphocytes % (Manual) Monocytes % (Manual) Metamyelocytes % Abs Neuts (Manual) Lymphocytes # (Manual) Monocytes # (Manual) Metamyelocytes # Toxic Vacuolation Platelet Estimate Large Platelets Plt Morphology Comment RBC Morphology Polychromasia [place] Cells Hold Purple Top PT 13.8 H INR 1.1 Sodium 141 Potassium 3.5 Chloride 111 H Carbon Dioxide 21 L Anion Gap 13 BUN 14 Creatinine 0.61 Estim Creat Clear Calc 108.0 Estimated GFR > 60 POC Glucose 137 H 160 H Random Glucose 139 H Lactic Acid Lactic Acid F/U @ 2Hr Lactic Acid F/U @ 4Hr Calcium 8.0 L D Phosphorus 1.7 L Magnesium 1.5 L Total Bilirubin 1.4 H Direct Bilirubin 0.8 H AST 73 H ALT 195 H Alkaline Phosphatase 101 Total Protein 5.8 L Albumin 3.3 L Lipase Urine Color Urine Appearance Urine pH Ur Specific [place] Urine Protein Urine Glucose (UA) Urine Ketones Urine Blood Urine Nitrite Ur Leukocyte Esterase Urine RBC Urine WBC Ur Squamous Epith Cells Urine Bacteria Hyaline Casts Influenza Type A (PCR) Influenza Type B (PCR) RSV RNA Qual (PCR) SARS-CoV-2 RNA (RT-PCR) Blood Type Antibody Screen Airway Mallampati Class: I TM Dist: >3cm Neck ROM: Full Loose/Missing/Broken Teeth: Yes (edentulous) Heart: S1S2 Lungs: CTAB Assessment and Plan Assessment Anesthesia Assessment: Anesthesia Plan Discussed and Chart Reviewed Final Anesthetic Review Family History of Problems with Anesthesia: No History of Problems with Anesthesia: No NPO: Yes ASA Class: III and Emergency Final Preanesthetic Review: No Changes in Pt Med Stat, Meds/Allgs Chart Reviewed, Consent Obtained/Reviewed and Anes Risks/Benef Reviewed Patient Risk: Intermediate Procedure Risk: Low Anesthetic Plan Anesthetic Plan: GA and Agree w/ Assess. and Plan Disposition: Standard PACU
--- NOTE | 2025-08-29 15:40 | PC.NURSE ---
Addendum entered by Karli Wu RN 08/29/25 18:30: Patient returned from OR 1705 s/p ERCP, reports no pain, c/o nausea and vomiting, MD notified, order for zofran received and administered, effectiveness pending. Patient continues to be NPO, allowed to have ice chips and sips of water. Original Note: Off unit to OR for ERCP
--- NOTE | 2025-08-29 17:29 | P.BOP_ITS ---
Brief Operative Note Date of Service: 08/29/25 Pre-op diagnosis: Cholangitis, ? of choledocholithiasis Post-op diagnosis: other (Same, normal cholangiograms, gallstones in the GB) Procedure: ERCP with sphinterotomy Surgeon: Fernando Anderson MD Anesthesia: GETA Was an [employer] used for this Procedure?: No Estimated blood loss (mL): 10.0 Pathology: none sent Condition: stable Disposition: ICU
--- NOTE | 2025-08-29 17:32 | P.EN_ITS ---
Event Note Date of Service: 08/29/25 Event Note: GI-ERCP with sphincterotomy-Full note dictated Findings: 1. Major papilla was normal but situated alongside the edge of a moderate-sized diverticulum with some vegetable debris in it. 2. Selective cannulation of the CBD over a straight guidewire with selective ch olangiograms revealed a normal appearing biliary tract. There was no significant dilatation or filling defects. 3. The cystic duct was patent and the GB filled well. Multiple small filling defects c/w stones were noted in the GB. 4. Given his presentation, I opted to perform an approx. 8mm sphincterotomy over the guidewire with good drainage of bile and dye noted, as well as some purulent appearing drainage 5. The CBD was swept with a 12mm balloon and pulled easily into the duodenum. There were no visible stones pulled into the duodenum and F/U cholangiograms were negative for any fillinjg defects 6. The Pancreatic duct was not cannulated or injected 7. There was some transient bleeding from the sphincterotomy site. This stopped spontaneosly. It was observed and irrigated for another 20-30minutes and there was no further bleeding Imp: Normal cholangiograms, s/p sphincterotomy. I suspected he passed a CBD stone spontaneously based on his clinical course of rapidly resolving sepsis and abnormal LFT's Rec: Hold all blood thinners for 1 week. Observe overnight, F/U labs, continue antibiotics, advance diet on 08/30 if stable, and eventual CCY as per General Surgery. I reviewed all of this with the patient's and 2 daughters.They were comfortable with this plan. Time Spent With Patient Time: Total time managing care of this patient today ____ minutes.
[2025-08-29 18:07] LABS: Glucose, Whole Blood 188 mg/dL (60-115)
[2025-08-29 18:29] LABS: Hematocrit 39.8 % (42.0-52.0); Hemoglobin 13.3 g/dl (14.0-18.0)
[2025-08-29 23:44] LABS: Glucose, Whole Blood 149 mg/dL (60-115)
[2025-08-30] VITALS (15 sets, daily range): BP systolic 107–153; BP diastolic 56–83; PULSE 60–75; RESP 15–20; TEMP 36.1–36.6; O2SAT 91–99; BMI 26.4
[2025-08-30] MEDS: Hydrocortisone Sod Succ/PF 100 MG VIAL 50 MG IVPUSH ×3 (04:36→20:02)
[2025-08-30 05:40] LABS: Albumin Level 3.5 g/dL (3.5-5.0)
[2025-08-30 05:48] LABS: Alanine Aminotransferase 145 U/L (0-40); Albumin Level 3.6 g/dL (3.5-5.0); Alkaline Phosphatase 98 U/L (39-117); Anion Gap 14 (12-20); Aspartate Amino Transferase 37 U/L (5-37); Blood Urea Nitrogen 22 mg/dL (9-16); Calcium 8.5 mg/dL (8.4-10.2); Carbon Dioxide 22 mmol/L (22-29); Chloride 110 mmol/L (96-108); Creatinine Clr Calc Pharmacy 84.4; Estimated Glomerular Filt Rate > 60; Magnesium 2.2 mg/dL (1.6-2.6); Potassium 3.9 mmol/L (3.3-5.1); Sodium 142 mmol/L (135-145); Total Protein 6.3 g/dL (6.5-8.0)
--- NOTE | 2025-08-30 05:56 | PC.NURSE ---
Addendum entered by Ramin Champagne RN 08/30/25 06:42: Patient transferred to Med/Tele room 445 via wheelchair. Addendum entered by Ramin Champagne RN 08/30/25 06:01: Downgrade orders placed by WILMAR Mak. Report called to Tabby VERDUZCO on Med/Tele, awaiting transport. Original Note: Assumed care at 1900. Patient A&Ox4, pleasant and cooperative. BOWDEN and able to make needs known. AV paced on tele, Levophed gtt running per NOV. Able to be titrated off at approx 2100. Lung sounds clear, diminished in the bases. Patient abdomen soft and round, NPO diet with ice chips and small sips as tolerated. Patient initially endorsing nausea and vomiting small amounts of bile. PRN zofran administered per NOV with good effect. Voids via urinal clear concentrated urine. Skin warm and intact, occasionally moist. Patient able to reposition self in bed without issue. Patient's Ángela updated by this RN via phone, as well as daughter and HCP Yessica (cell # [phone]). Bed locked in lowest position, bed alarm on, call sánchez within reach.
[2025-08-30 06:04] LABS: Hematocrit 42.0 % (42.0-52.0); Hemoglobin 13.7 g/dl (14.0-18.0); Imm Gran Abs Auto 0.18 X10*3/uL (0.00-0.03); Imm Gran Pct Auto 1.9 % (0.0-0.4); Lymphocytes Absolute Auto 0.8 X10*3/uL (1.2-4.9); MANUAL DIFF FLAG SCAN; Mean Corpuscular HGB Conc 32.6 g/dl (31.0-36.0); Mean Corpuscular Hemoglobin 28.0 pg (27.0-33.0); Mean Corpuscular Volume 85.9 fL (80.0-98.0); NRBC Abs Auto 0.000 X10*3/uL (0.0-0.012); NRBC Pct Auto 0.0 /100WBC (0.0-0.2); PLT CLUMP 1; Red Blood Count 4.89 X10*6/uL (4.60-5.80); SCAN SMEAR FLAG 1
[2025-08-30 06:07] LABS: Platelet Count 106 X10*3/uL (160-400); White Blood Count 9.7 X10*3/uL (4.8-10.8)
--- NOTE | 2025-08-30 08:58 | PM.PNGS ---
Subjective Subjective Date of Service: 08/30/25 Interval history: doing well this moring, pain improving. Was nauseous had multiple episodes of vomiting after the ERCP yesterday. today denies nausea or vomiting. Physical Exam Vital Signs: Vital Signs: Last Vital Signs Temp 97.1 F 08/30/25 06:45 Pulse 75 08/30/25 06:45 Resp 18 08/30/25 06:45 BP 130/66 08/30/25 06:45 Pulse Ox 93 08/30/25 06:45 O2 Del Method Room Air 08/30/25 06:45 O2 Flow Rate 2 08/30/25 04:00 FiO2 50 08/28/25 19:00 BMI result Body Mass Index 26.4 Const: General: comfortable and no acute distress Orientation/consciousness: patient oriented x3 Resp: Effort & Inspection: normal respiratory effort and able to speak in complete sentences GI: Inspection: No distended Palpation (GI): Soft to palpation and Tenderness to palpation present (GI) in the RUQ (mild) Neuro: General: patient oriented x3 Objective Data Active Medications Dextrose (Dextrose 50 % 25 Gm/50 Ml Syringe) 25 gm IVPUSH Q15M PRN; Protocol PRN Reason: per Hypoglycemia Standing Ord. Glucose (Glucose Gel 15 Gm Gel..Gram.) 15 gm PO Q15M PRN; Protocol PRN Reason: per Hypoglycemia Standing Ord. Hydrocortisone Sodium Succinate (Hydrocortisone Sod Succ/Pf 100 Mg Vial) 50 mg IVPUSH Q8H [facility] Last Admin: 08/30/25 04:36 Dose: 50 mg Documented By: AVERY Piperacillin Sod/Tazobactam (Sod 3.375 gm/ Sodium Chloride) 50 mls @ 100 mls/hr IV Q6H [facility] Last Infusion: 08/30/25 05:20 Dose: Infused Documented By: AVERY Insulin Human Lispro (Insulin Lispro 100 Unit/Ml 3 Ml Vial) 0 unit SUBCUT Q6H [facility]; Protocol Last Admin: 08/30/25 05:51 Dose: Not Given Documented By: AVERY Non-Admin Reason: Physician Held Med Melatonin (Melatonin 3 Mg Tablet) 6 mg PO BEDTIME PRN PRN Reason: Insomnia Last Admin: 08/29/25 23:36 Dose: 6 mg Documented By: AVERY Ondansetron HCl (Ondansetron Hcl 4 Mg/2 Ml Vial) 4 mg IVPUSH Q4H PRN PRN Reason: Nausea and Vomiting Last Admin: 08/30/25 04:35 Dose: 4 mg Documented By: AVERY Labs 08/30/25 05:13 08/30/25 05:13 Labs: Laboratory Results - last 24 hr 08/29/25 08/29/25 08/29/25 11:44 18:02 23:38 MCV MCH MCHC RDW Plt Count MPV Immature Gran % (Auto) Neut % (Auto) Lymph % (Auto) [place] % (Auto) Eos % (Auto) Baso % (Auto) Lymph # (Auto) [place] # (Auto) Eos # (Auto) Baso # (Auto) Abs Immat Gran (auto) Absolute Neuts (auto) Absolute Nucleated RBC Nucleated RBC % (auto) Smear Tech's Comments Anion Gap Estim Creat Clear Calc Estimated GFR POC Glucose 160 H 188 H 149 H Random Glucose Calcium Phosphorus Magnesium Total Bilirubin Direct Bilirubin AST ALT Alkaline Phosphatase Total Protein Albumin 08/30/25 08/30/25 05:13 05:13 MCV 85.9 MCH 28.0 MCHC 32.6 RDW 14.4 Plt Count 106 L MPV 11.7 Immature Gran % (Auto) 1.9 H Neut % (Auto) 86.6 H Lymph % (Auto) 7.8 L [place] % (Auto) 3.4 Eos % (Auto) 0.1 Baso % (Auto) 0.2 Lymph # (Auto) 0.8 L [place] # (Auto) 0.3 Eos # (Auto) 0.0 Baso # (Auto) 0.0 Abs Immat Gran (auto) 0.18 H Absolute Neuts (auto) 8.4 H Absolute Nucleated RBC 0.000 Nucleated RBC % (auto) 0.0 Smear Tech's Comments VERIFIED Anion Gap 14 Estim Creat Clear Calc 84.4 Estimated GFR > 60 POC Glucose Random Glucose 151 H Calcium 8.5 D Phosphorus 3.0 Magnesium 2.2 Total Bilirubin 1.0 Direct Bilirubin 0.6 H AST 37 ALT 145 H Alkaline Phosphatase 98 Total Protein 6.3 L Albumin 3.6 3.5 Microbiology Microbiology Results: Microbiology 08/28/25 03:14 Blood Culture - Preliminary Blood - Venous Escherichia coli Klebsiella pneumoniae Gram positive cathi 08/28/25 02:39 Blood Culture - Preliminary Blood - Venous Klebsiella pneumoniae Gram positive cathi 08/28/25 Unknown Urine Culture - Final Urine clean catch - Clean Catch Midstream Procedures Date of Service Date of Service: 08/30/25 Progress Note: A&P Assessment and plan (1) Ascending cholangitis: Status: Acute Plan 75-year-old male with a history of hypertension, hyperlipidemia, type 2 diabetes, COPD, s/p CABG 4, ACID who is currently admitted to the ICU for septic shock secondary to ascending cholangitis. downgraded to [facility]. Now s/p ERCP and sphincterotomy. He experienced nausea and bilious vomiting after ERCP but today feels improved. Pain mild and getting better overall. Labs overall improving, no white count, liver enzymes now WNL. ERCP yesterday did not reveal a stone in the CBD, cystic duct was patent. Patient likely passed CBD stone prior to procedure. On exam abdomen is soft, tender mostly in the right upper quadrant, improved on exam from yesterday. He can have diet as tolerated, recommending low fat diet. After discharged with follow up with us in 1-2 weeks to scheduled for surgical procedure. We will continue to follow along during this admission for any urgent surgical intervention that may arise diet as tolerated, recommend low fat trend labs follow up in 1-2 weeks after dc as outpt for elective CCY Time Spent With Patient Time: Total time managing care of this patient today ____ minutes. Quality Stroke Does the patient have a stroke diagnosis?: No VTE Prior VTE?: No VTE Risk Level:: Medical - moderate - high VTE Device Contraindication: N/A - Device Ordered VTE Drug Contraindication: Treatment Not Tolerated
[2025-08-30 11:38] LABS: Glucose, Whole Blood 159 mg/dL (60-115)
--- NOTE | 2025-08-30 15:09 | P.PNIM_ITS ---
Subjective Subjective Date of Service: 08/30/25 Interval History: No new complaints this morning Patient feels very well today, close to his clinical baseline. He denies abdominal pain, vomiting, nausea Reports appetite and hunger Review of Systems Review of Systems: Yes all other systems are reviewed and are negative Physical Exam 2 Exam: Exam: General: A&O x3, oriented to time place person and situation, comfortable, no pain Cardiac: S1, S2 auscultated with no S3/4, no MRG. Well perfused. Respiratory: Normal breath sounds auscultated throughout all lung zones, without wheezing, rales. Normal rate. GI/ : No abdominal pain on palpation, no masses or distentions. MSK: Normal ambulation without pain at bony prominences or musculature Neurological: Normal neurological examination on overview, without obvious CN II-XII abnormalities. Vital Signs: Vital Signs: Last Vital Signs Temp 97.6 F 08/30/25 12:46 Pulse 69 08/30/25 12:46 Resp 18 08/30/25 12:46 BP 111/61 08/30/25 12:46 Pulse Ox 91 L 08/30/25 12:46 O2 Del Method Room Air 08/30/25 12:46 O2 Flow Rate 2 08/30/25 04:00 FiO2 50 08/28/25 19:00 BMI result Body Mass Index 26.4 Objective Data Active Medications Acetaminophen (Acetaminophen 325 Mg Tablet) 325 mg PO Q6H PRN PRN Reason: Pain, Mild (Pain Scale 1-3) Last Admin: 08/30/25 11:39 Dose: 325 mg Documented By: ROSA Dextrose (Dextrose 50 % 25 Gm/50 Ml Syringe) 25 gm IVPUSH Q15M PRN; Protocol PRN Reason: per Hypoglycemia Standing Ord. Glucose (Glucose Gel 15 Gm Gel..Gram.) 15 gm PO Q15M PRN; Protocol PRN Reason: per Hypoglycemia Standing Ord. Hydrocortisone Sodium Succinate (Hydrocortisone Sod Succ/Pf 100 Mg Vial) 50 mg IVPUSH Q8H [facility] Last Admin: 08/30/25 11:11 Dose: 50 mg Documented By: ROSA Piperacillin Sod/Tazobactam (Sod 3.375 gm/ Sodium Chloride) 50 mls @ 100 mls/hr IV Q6H [facility] Last Admin: 08/30/25 15:03 Dose: 100 mls/hr Documented By: DENYS Insulin Human Lispro (Insulin Lispro 100 Unit/Ml 3 Ml Vial) 0 unit SUBCUT Q6H TRICIA; Protocol Last Admin: 08/30/25 12:14 Dose: 2 unit Documented By: ROSA Melatonin (Melatonin 3 Mg Tablet) 6 mg PO BEDTIME PRN PRN Reason: Insomnia Last Admin: 08/29/25 23:36 Dose: 6 mg Documented By: AVERY Ondansetron HCl (Ondansetron Hcl 4 Mg/2 Ml Vial) 4 mg IVPUSH Q4H PRN PRN Reason: Nausea and Vomiting Last Admin: 08/30/25 04:35 Dose: 4 mg Documented By: AVERY Labs 08/30/25 05:13 08/30/25 05:13 Labs: Laboratory Results - last 24 hr 08/29/25 08/29/25 08/30/25 18:02 23:38 05:13 MCV 85.9 MCH 28.0 MCHC 32.6 RDW 14.4 Plt Count 106 L MPV 11.7 Immature Gran % (Auto) 1.9 H Neut % (Auto) 86.6 H Lymph % (Auto) 7.8 L Bryan % (Auto) 3.4 Eos % (Auto) 0.1 Baso % (Auto) 0.2 Lymph # (Auto) 0.8 L Bryan # (Auto) 0.3 Eos # (Auto) 0.0 Baso # (Auto) 0.0 Abs Immat Gran (auto) 0.18 H Absolute Neuts (auto) 8.4 H Absolute Nucleated RBC 0.000 Nucleated RBC % (auto) 0.0 Smear Tech's Comments VERIFIED Anion Gap 14 Estim Creat Clear Calc 84.4 Estimated GFR > 60 POC Glucose 188 H 149 H Random Glucose 151 H Calcium 8.5 D Phosphorus 3.0 Magnesium 2.2 Total Bilirubin 1.0 Direct Bilirubin 0.6 H AST 37 ALT 145 H Alkaline Phosphatase 98 Total Protein 6.3 L Albumin 3.6 08/30/25 08/30/25 05:13 11:34 MCV MCH MCHC RDW Plt Count MPV Immature Gran % (Auto) Neut % (Auto) Lymph % (Auto) Bryan % (Auto) Eos % (Auto) Baso % (Auto) Lymph # (Auto) Bryan # (Auto) Eos # (Auto) Baso # (Auto) Abs Immat Gran (auto) Absolute Neuts (auto) Absolute Nucleated RBC Nucleated RBC % (auto) Smear Tech's Comments Anion Gap Estim Creat Clear Calc Estimated GFR POC Glucose 159 H Random Glucose Calcium Phosphorus Magnesium Total Bilirubin Direct Bilirubin AST ALT Alkaline Phosphatase Total Protein Albumin 3.5 Microbiology Microbiology Results: Microbiology 08/28/25 02:39 Blood Culture - Preliminary Blood - Venous Klebsiella pneumoniae Gram positive cathi 08/28/25 03:14 Blood Culture - Preliminary Blood - Venous Escherichia coli Klebsiella pneumoniae Gram positive cathi 08/28/25 Unknown Urine Culture - Final Urine clean catch - Clean Catch Midstream Assessment and Plan (1) Ascending cholangitis: Status: Acute (2) Sepsis: Status: Acute (3) Septic shock: Status: Acute (4) Ischemic cardiomyopathy: Status: Acute (5) Hypertension: Status: Acute (6) Coronary artery disease: Status: Acute (7) AICD (automatic cardioverter/defibrillator) present: Status: Acute (8) COPD (chronic obstructive pulmonary disease): Status: Acute (9) Diabetes mellitus, type 2: Status: Acute Plan 75-year-old male with a history of CAD (s/p CABG, AICD), type 2 diabetes, hypertension, and hyperlipidemia, admitted to MICU with septic shock secondary to ascending cholangitis from choledocholithiasis, now status post-ERCP with clinical improvement, currently stable on the medical floor 08/29/2025. Ascending Cholangitis (s/p ERCP with sphincterotomy, presumed passed CBD stone) Presented with RUQ pain, fever, jaundice, and sepsis. Imaging showed cholelithiasis, biliary dilation, and possible choledocholithiasis. Blood cultures positive for gram-negative rods. Underwent ERCP with sphincterotomy and balloon sweep; no retained CBD stone seen, purulent drainage noted, rapid clinical and laboratory improvement post-procedure. Plan: * Continue IV piperacillin-tazobactam to complete antibiotic course (adjust per sensitivities if availabl) * Monitor for recurrence of fever, abdominal pain, or signs of infection * Daily labs: CBC, CMP, LFTs * Advance diet as tolerated if stable * Hold all anticoagulants/antiplatelets for 1 week post-sphincterotomy * Arrange for interval laparoscopic cholecystectomy after recovery Septic Shock (resolved) Initial hypotension and lactic acidosis requiring norepinephrine and aggressive fluid resuscitation. Now hemodynamically stable off vasopressors. Plan: * Monitor vital signs and hemodynamic status. * Maintain euvolemia. * Monitor for recurrence of shock or organ dysfunction. Type 2 Diabetes Mellitus Hyperglycemia on admission, likely stress-related; managed with sliding scale insulin. Plan: * Continue sliding scale insulin. * Monitor blood glucose q6h. * Resume home oral agents when tolerating PO and sepsis resolved. Coronary Artery Disease (s/p CABG, AICD) No acute cardiac events during admission. Home aspirin and statin held due to sphincterotomy and allergy, respectively. Plan: * Continue cardiac monitoring as indicated. * Hold aspirin for 1 week post-ERCP per GI. * Avoid statins due to allergy. * Continue other cardiac meds as appropriate. Hypertension Home antihypertensives held during acute illness; BP stable. Plan: * Resume home antihypertensives as tolerated. * Monitor BP closely. Hyperlipidemia Atorvastatin allergy; statin held. Plan: * Avoid statins. * Consider alternative lipid-lowering therapy after recovery. Chronic Kidney Disease/Nephrolithiasis Baseline renal function preserved; non-obstructive stones noted on imaging. Plan: * Monitor renal function and electrolytes daily. * Maintain adequate hydration. * Outpatient follow-up for nephrolithiasis as indicated. Electrolyte Abnormalities Mild hypomagnesemia, hypophosphatemia, and hypocalcemia noted during ICU course. Plan: * Replete electrolytes as needed. * Monitor daily. QUALITY METRICS - VTE: SCD post operative - CODE STATUS: FULL CODE - DIET: REGULAR NOW Total time managing care of this patient today: 35 minutes. Quality Stroke Does the patient have a stroke diagnosis?: No VTE Prior VTE?: No VTE Risk Level:: Medical - moderate - high VTE Device Contraindication: N/A - Device Ordered VTE Drug Contraindication: Treatment Not Tolerated
[2025-08-30 16:19] LABS: Glucose, Whole Blood 208 mg/dL (60-115)
--- NOTE | 2025-08-30 16:39 | OP_ITS ---
DATE OF SERVICE: 08/29/2025 SURGEON: Fernando Anderson MD INDICATIONS: The patient presents for evaluation of cholangitis and abnormal imaging of his biliary tract with suspicion of common bile duct stones. Full consent has been obtained from him for this, including risks of bleeding, perforation, cholangitis, and pancreatitis. PREOPERATIVE DIAGNOSIS: POSTOPERATIVE DIAGNOSIS: PROCEDURE PERFORMED: ERCP with sphincterotomy. ESTIMATED BLOOD LOSS: COMPLICATIONS: ANESTHESIA: Medications used, general anesthesia and glucagon 0.5 mg IV x 2 doses. ASSISTANTS: SPECIMENS: DESCRIPTION OF PROCEDURE: The patient was placed in the semiprone position. The [employer] Exalt single use duodenoscope was passed in the posterior oropharynx and upper esophagus. The scope entered the stomach and was advanced to the pylorus. The duodenum was cannulated to the descending portion. The region of the major papilla was visualized. This was notable for a moderate-sized diverticulum with some vegetable material within it. The papilla appeared alongside of it, and did appear otherwise normal. I was able to achieve a selective cannulation of the biliary tree over a straight guidewire. Selective cholangiograms revealed good filling of the intrahepatic and extrahepatic bile ducts, as well as the cystic duct and gallbladder. The intrahepatic and extrahepatic bile ducts appeared normal without any sign of significant dilatation nor filling defects. The cystic duct filled as did the gallbladder. Multiple small filling defects were seen in the gallbladder consistent with cholelithiasis. Although no definitive stones were seen in the common bile duct, I felt that he should undergo a sphincterotomy given his presentation with sepsis and to be sure no small stones remain in the bile duct that are not visible on the cholangiograms. An approximately 8 mm sphincterotomy was performed. There was some transient bleeding from it, but after irrigation and then observing it for at least 20 to 30 minutes, there was no further bleeding. The bile duct was swept with a 12 mm balloon catheter. The balloon itself pulled easily into the duodenum in the fully inflated position. No visible stones were seen with it. Followup occlusion cholangiograms did not reveal any sign of filling defects either. The pancreatic duct was not cannulated nor injected. As mentioned, there was some transient bleeding from the sphincterotomy site, but after observation and irrigation, there did not appear to be any sign of bleeding at the end of the procedure. The scope was withdrawn from the patient. He tolerated the procedure well and was returned to the ICU in stable condition. IMPRESSION: 1. Normal biliary tract, status post sphincterotomy. 2. Periampullary diverticulum. 3. Gallstones with patent cystic duct. RECOMMENDATIONS: I would recommend that he avoid all aspirin and NSAIDs for at least 2 weeks. He should avoid all other blood thinners for at least a week or 2 as well, including Lovenox and SQ heparin. He can have some ice chips and sips of clear liquids tonight and if stable he can have his diet advanced tomorrow. He will continue on antibiotics. He has already been seen by General Surgery, and they will coordinate his cholecystectomy with him. I did review this in detail with the patient's and 2 daughters this evening. I did advise them of the importance of having his gallbladder removed so as to hopefully prevent further passage of stones into the bile duct. The patient's and 2 daughters understood the explanation well and were very comfortable with the plan. MD KRIS Cabezas/STEVENSON / [id number] TOM
[2025-08-30 20:37] LABS: Glucose, Whole Blood 162 mg/dL (60-115)
[2025-08-31 03:36] VITALS: BP 141/69; PULSE 79; RESP 17; TEMP 37; O2SAT 94
[2025-08-31] MEDS: Hydrocortisone Sod Succ/PF 100 MG VIAL 50 MG IVPUSH (04:00)
[2025-08-31 06:00] VITALS: BMI 29.2
[2025-08-31 06:16] LABS: Hematocrit 42.6 % (42.0-52.0); Hemoglobin 13.9 g/dl (14.0-18.0); Imm Gran Abs Auto 0.13 X10*3/uL (0.00-0.03); Imm Gran Pct Auto 1.2 % (0.0-0.4); Lymphocytes Absolute Auto 1.1 X10*3/uL (1.2-4.9); MANUAL DIFF FLAG SCAN; Mean Corpuscular HGB Conc 32.6 g/dl (31.0-36.0); Mean Corpuscular Hemoglobin 28.0 pg (27.0-33.0); Mean Corpuscular Volume 85.7 fL (80.0-98.0); NRBC Abs Auto 0.000 X10*3/uL (0.0-0.012); NRBC Pct Auto 0.0 /100WBC (0.0-0.2); PLT CLUMP 1; Red Blood Count 4.97 X10*6/uL (4.60-5.80); SCAN SMEAR FLAG 1
[2025-08-31 06:30] LABS: Alanine Aminotransferase 104 U/L (0-40); Albumin Level 3.5 g/dL (3.5-5.0); Alkaline Phosphatase 102 U/L (39-117); Anion Gap 12 (12-20); Aspartate Amino Transferase 31 U/L (5-37); Blood Urea Nitrogen 21 mg/dL (9-16); Calcium 8.5 mg/dL (8.4-10.2); Carbon Dioxide 24 mmol/L (22-29); Chloride 107 mmol/L (96-108); Creatinine Clr Calc Pharmacy 101.3; Estimated Glomerular Filt Rate > 60; Magnesium 1.7 mg/dL (1.6-2.6); Potassium 3.7 mmol/L (3.3-5.1); Sodium 139 mmol/L (135-145); Total Protein 6.1 g/dL (6.5-8.0)
[2025-08-31 06:36] LABS: Platelet Count 116 X10*3/uL (160-400); White Blood Count 10.6 X10*3/uL (4.8-10.8)
[2025-08-31 07:36] LABS: Glucose, Whole Blood 158 mg/dL (60-115)
[2025-08-31 08:00] VITALS: BP 165/86; PULSE 61; RESP 16; TEMP 36.3; O2SAT 92
--- NOTE | 2025-08-31 11:08 | P.DS_ITS ---
DS: Providers Provider Date of admission: 08/28/25 09:19 Date of discharge: 08/31/25 Primary care physician: Иван Mackey MD Consults: 08/28/25 15:00 Consult to Gastroenterology Routine Consulting Provider: [facility] Reason for consultation: ?Ascending Cholangitis Has provider been notified: Yes 08/29/25 09:20 Consult to General Surgery Routine Consulting Provider: [facility] Reason for consultation: Non-Urgent, Ascending Cholangitis, ECRP Today, ?Ruth Ann in Future Has provider been notified: No DS: Diagnosis Discharge Diagnosis (1) Ascending cholangitis: Status: Acute (2) Sepsis: Status: Acute (3) Septic shock: Status: Acute (4) Ischemic cardiomyopathy: Status: Acute (5) Hypertension: Status: Acute (6) Coronary artery disease: Status: Acute (7) AICD (automatic cardioverter/defibrillator) present: Status: Acute (8) COPD (chronic obstructive pulmonary disease): Status: Acute (9) Diabetes mellitus, type 2: Status: Acute DS: Summary Hospital Course Hospital Course: 75-year-old male with a history of CAD (s/p CABG, AICD), type 2 diabetes, hypertension, and hyperlipidemia, admitted to MICU with septic shock secondary to ascending cholangitis from choledocholithiasis, now status post-ERCP with clinical improvement, currently stable on the medical floor 08/29/2025. Mr. Eran Mathew, a 75-year-old male with a history of CAD (s/p CABG, AICD), type 2 diabetes, hypertension, and hyperlipidemia, presented with acute onset right upper quadrant pain, nausea, vomiting, and fever. He was found to be septic with hypotension and lactic acidosis, requiring ICU admission, vasopressor support, and broad-spectrum antibiotics. Imaging (CT and RUQ ultrasound) revealed cholelithiasis, biliary dilation, and possible choledocholithiasis. Blood cultures grew gram-negative rods. He underwent ERCP with sphincterotomy and balloon sweep; no retained CBD stone was visualized, but purulent drainage was noted, and his clinical status improved rapidly post- procedure. Liver function tests and hemodynamics normalized, vasopressors were weaned off, and he was transitioned to the medical floor on 08/30/2025. He remained on IV antibiotics, with plans for interval cholecystectomy after recovery; transitioned to PO antibiotics successfully. Ascending Cholangitis (s/p ERCP with sphincterotomy, presumed passed CBD stone) Presented with RUQ pain, fever, jaundice, and sepsis. Imaging showed cholelithiasis, biliary dilation, and possible choledocholithiasis. Blood cultures positive for gram-negative rods. Underwent ERCP with sphincterotomy and balloon sweep; no retained CBD stone seen, purulent drainage noted, rapid clinical and laboratory improvement post-procedure. Plan for outpatient cholecystectomy in 1-2 weeks with the surgical service Plan: * Transitioned to metronidazole, cephalexin; continue for * Hold all anticoagulants/antiplatelets for 1 week post-sphincterotomy * Arrange for interval laparoscopic cholecystectomy after recovery Septic Shock (resolved) Initial hypotension and lactic acidosis requiring norepinephrine and aggressive fluid resuscitation. Now hemodynamically stable off vasopressors. Type 2 Diabetes Mellitus Hyperglycemia on admission, likely stress-related; managed with sliding scale insulin. Plan: * Monitor blood glucose QIDACH. * Resume home oral agents when tolerating PO and sepsis resolved. Coronary Artery Disease (s/p CABG, AICD) No acute cardiac events during admission. Home aspirin and statin held due to sphincterotomy and allergy, respectively. Plan: * Continue cardiac monitoring as indicated. * Hold aspirin for 1 week post-ERCP per GI. * Avoid statins due to allergy. * Continue other cardiac meds as appropriate. Hypertension Home antihypertensives held during acute illness; BP stable. Plan: * Resume home antihypertensives as tolerated. Hyperlipidemia Atorvastatin allergy; statin held. Plan: * Avoid statins. * Consider alternative lipid-lowering therapy after recovery. Chronic Kidney Disease/Nephrolithiasis Baseline renal function preserved; non-obstructive stones noted on imaging. Plan: * Outpatient follow-up for nephrolithiasis as indicated. Electrolyte Abnormalities Mild hypomagnesemia, hypophosphatemia, and hypocalcemia noted during ICU course. RESOLVED Status at Discharge Functional status at discharge: independent ambulation Overall status at discharge: patient is back to baseline Time Attestation Total time managing care of this patient today: 45 mintues. Discharge Coordination Time (in mins): 35 Quality: Safe Use of Opioids Does Pt have an Active Cancer Diagnosis on the Problem List?: No Quality: Stroke Does the patient have a stroke diagnosis?: No Physical Exam Exam: Exam: General: A&O x3, oriented to time place person and situation, comfortable, no pain Cardiac: S1, S2 auscultated with no S3/4, no MRG. Well perfused. Respiratory: Normal breath sounds auscultated throughout all lung zones, without wheezing, rales. Normal rate. GI/ : No abdominal pain on palpation, no masses or distentions. MSK: Normal ambulation without pain at bony prominences or musculature Neurological: Normal neurological examination on overview, without obvious CN II-XII abnormalities. Vital Signs: Vital Signs: Last Vital Signs Temp 97.4 F 08/31/25 08:00 Pulse 61 08/31/25 08:00 Resp 16 08/31/25 08:00 BP 165/86 H 08/31/25 08:00 Pulse Ox 92 08/31/25 08:00 O2 Del Method Room Air 08/31/25 08:00 O2 Flow Rate 2 08/30/25 04:00 FiO2 50 08/28/25 19:00 BMI result Body Mass Index 29.2 DS: Data Data Completed and Pending Labs on day of discharge: Laboratory Results - last 24 hr 08/30/25 08/30/25 08/30/25 11:34 16:15 20:32 WBC RBC Hgb Hct MCV MCH MCHC RDW Plt Count MPV Immature Gran % (Auto) Neut % (Auto) Lymph % (Auto) Wilkinson % (Auto) Eos % (Auto) Baso % (Auto) Lymph # (Auto) Wilkinson # (Auto) Eos # (Auto) Baso # (Auto) Abs Immat Gran (auto) Absolute Neuts (auto) Absolute Nucleated RBC Nucleated RBC % (auto) Smear Tech's Comments Sodium Potassium Chloride Carbon Dioxide Anion Gap BUN Creatinine Estim Creat Clear Calc Estimated GFR POC Glucose 159 H 208 H 162 H Random Glucose Calcium Phosphorus Magnesium Total Bilirubin AST ALT Alkaline Phosphatase Total Protein Albumin 08/31/25 08/31/25 05:45 07:08 WBC 10.6 RBC 4.97 Hgb 13.9 L Hct 42.6 MCV 85.7 MCH 28.0 MCHC 32.6 RDW 14.3 Plt Count 116 L MPV 11.6 Immature Gran % (Auto) 1.2 H Neut % (Auto) 83.1 H Lymph % (Auto) 10.6 L Wilkinson % (Auto) 4.9 Eos % (Auto) 0.0 Baso % (Auto) 0.2 Lymph # (Auto) 1.1 L Wilkinson # (Auto) 0.5 Eos # (Auto) 0.0 Baso # (Auto) 0.0 Abs Immat Gran (auto) 0.13 H Absolute Neuts (auto) 8.8 H Absolute Nucleated RBC 0.000 Nucleated RBC % (auto) 0.0 Smear Tech's Comments VERIFIED Sodium 139 Potassium 3.7 Chloride 107 Carbon Dioxide 24 Anion Gap 12 BUN 21 H Creatinine 0.65 Estim Creat Clear Calc 101.3 Estimated GFR > 60 POC Glucose 158 H Random Glucose 155 H Calcium 8.5 Phosphorus 2.2 L Magnesium 1.7 Total Bilirubin 1.1 H AST 31 ALT 104 H Alkaline Phosphatase 102 Total Protein 6.1 L Albumin 3.5 Preliminary micro results at discharge 08/28/25 03:14 Blood Culture - Preliminary Blood - Venous Escherichia coli Klebsiella pneumoniae Gram positive cathi 08/28/25 02:39 Blood Culture - Preliminary Blood - Venous Klebsiella pneumoniae Gram positive cathi Discharge Plan Discharge Anticipated Discharge Date/Time: 08/31/25 11:21 Patient Disposition: Home, Self-Care Discharge Diagnosis: Septic shock 2/2 ascending cholangitis in the setting of choledocholithiasis with passed stone Referrals: Иван Mackey MD [Primary Care Provider, Medical] - 1 Week Discharge Medications: New metronidazole 500 mg tablet 500 mg PO BID 10 Days Qty: 20 0RF cephalexin 500 mg capsule 500 mg PO BID 10 Days Qty: 20 0RF Continued cetirizine 10 mg tablet 10 mg PO DAILY metoprolol succinate 50 mg tablet extended release 24 hr 50 mg PO DAILY tramadol 50 mg tablet 50 mg PO Q12H PRN (Reason: severe pain) spironolactone 25 mg tablet 25 mg PO DAILY metformin 1,000 mg tablet 1,000 mg PO BID omeprazole 20 mg capsule,delayed release(DR/EC) 20 mg PO BID@0630,1630 Jardiance 10 mg tablet 10 mg PO DAILY sacubitril-valsartan [Entresto] 24-26 mg tablet 1 tab PO BID Held aspirin 81 mg tablet,delayed release (DR/EC) 81 mg PO DAILY Hold Instructions: Resume on 09/07/25. Discontinued latanoprost 0.005 % drops 1 drp ophthalmic (eye) BEDTIME atorvastatin 80 mg tablet 80 mg PO BEDTIME Discharge Orders: Discharge Order (Routine); Ordered 08/31/25 Ordered By: Osama Kandalaft Activity on Discharge: Please call [facility] at [phone] with any billing questions Stand Alone Forms: Patient Portal Discharge page Print Language: Hungarian Care Plan Goals: As above Health Concerns: As above Plan of Treatment: continue antibiotics for 10 days Follow up with surgery outpatient for laparoscopic cholecystectomy hold ASA for 1 week post discharge - defer to surgery prior to restarting FU with PCP in 1 week Assessment: Haemodynamically stable and ready for DC home
[2025-08-31 11:18] LABS: Glucose, Whole Blood 158 mg/dL (60-115)
[2025-08-31 11:36] VITALS: BP 123/70; PULSE 73; RESP 18; TEMP 36.3; O2SAT 94
--- NOTE | 2025-08-31 12:03 | PC.NURSE ---
Patient had concerns on picking up scripts due to pharmacy being closed. Changed preferred pharmacy to [facility], messaged provider Hanny via [employer] to resend scripts to new pharamacy. Also clarified with provider via [employer] if patient needs to continue with steriods due to taken IV Solu-cortef in hospital setting, provider noted patient does not need to be continued for discharge. Discharge teaching and education provided to patient with no new questions at time of discharge.
--- NOTE | 2025-08-31 12:09 | MHC.CM.PN ---
PT CLEARED TO ME HOME, SELF CARE TO TRANSPORT
== END 2025-08-31 12:13 | disposition home or self-care (01) | DRG 871 ==
LOC: HO.ED 07:46 → HO.EDOVER 09:27 → HO.ICU 09:31 → HO.IMC 08-30 06:25 → HO.S3 08-30 11:10
PROVIDERS: Internal Medicine; Internal Medicine Gastroenterology; Nurse Practitioner Family; Physician Assistant; Admitting Provider Internal Medicine Critical Care Medicine; Emergency Provider Emergency Medicine; PCP Internal Medicine; Visit Provider Hospitalist
PROC: 0F798ZZ Dilation of Common Bile Duct, Via Natural or Artificial Opening Endoscopic (ICD-10-PCS; CPT 43260; principal; 2025-08-29 14:40)
DX: A41.9 Sepsis, unspecified organism (principal); R65.21 Severe sepsis with septic shock; K80.30 Calculus of bile duct with cholangitis, unspecified, without obstruction; I25.10 Atherosclerotic heart disease of native coronary artery without angina pectoris; J44.9 Chronic obstructive pulmonary disease, unspecified; I12.9 Hypertensive chronic kidney disease with stage 1 through stage 4 chronic kidney disease, or unspecified chronic kidney disease; N18.9 Chronic kidney disease, unspecified; E11.22 Type 2 diabetes mellitus with diabetic chronic kidney disease; E11.65 Type 2 diabetes mellitus with hyperglycemia; E78.5 Hyperlipidemia, unspecified; E83.42 Hypomagnesemia; E83.39 Other disorders of phosphorus metabolism; E83.51 Hypocalcemia; Z20.822 Contact with and (suspected) exposure to COVID-19; Z95.1 Presence of aortocoronary bypass graft; Z95.810 Presence of automatic (implantable) cardiac defibrillator; Z87.891 Personal history of nicotine dependence; Z79.82 Long term (current) use of aspirin; Z79.84 Long term (current) use of oral hypoglycemic drugs; Z79.899 Other long term (current) drug therapy
CPT/HCPCS: 36415; 74177; 76705; 80048; 80053; 80076; 81001; 82040; 82947; 83605; 83690; 83735; 84100; 85007; 85014; 85018; 85025; 85027; 85610; 86850; 86900; 86901; 87040; 87077; 87086; 87185; 87186; 87205; 87637; 93005; 99285; C1748; J0131; J0613; J0696; J1100; J1610; J1720; J1836; J2003; J2405; J2543; J2704; J3010; J3373; J3430; J3475; J7120; P9047; Q9967

== ENCOUNTER → 2025-08-28 01:33 | Outpatient (BNV) | payer MEDICARE, SELFPAY | PROVIDERS: Admitting Provider Internal Medicine Critical Care Medicine; Emergency Provider Emergency Medicine; PCP Internal Medicine; Visit Provider Internal Medicine Cardiovascular Disease | DX: I49.3 Ventricular premature depolarization (principal); R94.31 Abnormal electrocardiogram [ECG] [EKG]; Z95.0 Presence of cardiac pacemaker | CPT/HCPCS: 93010 ==

== ENCOUNTER → 2025-08-28 03:09 | Outpatient (BNV) | payer MEDICARE, SELFPAY | PROVIDERS: Emergency Provider Emergency Medicine; PCP Internal Medicine; Visit Provider Radiology Diagnostic Radiology | DX: K80.20 Calculus of gallbladder without cholecystitis without obstruction (principal); N28.1 Cyst of kidney, acquired; K82.8 Other specified diseases of gallbladder; K76.0 Fatty (change of) liver, not elsewhere classified; N20.0 Calculus of kidney | CPT/HCPCS: 74177; 76705 ==

== ENCOUNTER → 2025-08-28 09:19 | Outpatient (BNV) | payer MEDICARE, SELFPAY | PROVIDERS: Admitting Provider Internal Medicine Critical Care Medicine; Emergency Provider Emergency Medicine; PCP Internal Medicine | DX: K83.09 Other cholangitis (principal) | CPT/HCPCS: 99223; 99232 ==

== ENCOUNTER → 2025-08-28 09:19 | Outpatient (BNV) | payer MEDICARE, SELFPAY | PROVIDERS: Admitting Provider Internal Medicine Critical Care Medicine; Emergency Provider Emergency Medicine; PCP Internal Medicine; Visit Provider Internal Medicine Critical Care Medicine | DX: A41.9 Sepsis, unspecified organism (principal); R65.21 Severe sepsis with septic shock; K83.09 Other cholangitis | CPT/HCPCS: 99223 ==

== ENCOUNTER → 2025-08-28 09:19 | Outpatient (BNV) | payer MEDICARE, SELFPAY | PROVIDERS: Admitting Provider Internal Medicine Critical Care Medicine; Emergency Provider Emergency Medicine; PCP Internal Medicine; Visit Provider Hospitalist | DX: K83.09 Other cholangitis (principal); A41.9 Sepsis, unspecified organism; R65.21 Severe sepsis with septic shock; K72.00 Acute and subacute hepatic failure without coma; I25.5 Ischemic cardiomyopathy; I10 Essential (primary) hypertension; I25.10 Atherosclerotic heart disease of native coronary artery without angina pectoris; Z95.810 Presence of automatic (implantable) cardiac defibrillator; J44.9 Chronic obstructive pulmonary disease, unspecified; E11.9 Type 2 diabetes mellitus without complications | CPT/HCPCS: 99232 ==

== ENCOUNTER 2025-09-16 08:42 | Outpatient (REF) | payer MEDICARE, SELFPAY ==
--- OUTSIDE RECORDS SUMMARY | 2025-08-29 09:40 | XMS_ITS ---
Author Organization [facility] Address [address] [place] [id number] Care Team Providers Care Exercise Physiologist Certified Name Role Phone Narendra Phan, Иван Primary Care Provider Un available Fernando Anderson Unavailable [phone] REASON FOR VISIT cbd stone Encounters Encounter Location Date Provider Diagnosis [facility] Inpatient [address], [place] [id number] 08/29/2025 Fernando Anderson Plan Of Treatment No Information Progress Notes * RANDOLPHRICKY VELAZQUEZDOB:1950 (75 yo M)Acc No.[id number]:08/29/2025 Progress Notes Patient: RICKY LEYVA Provider: Escobar Anderson MD :1950 A ge:75 Y S ex:Male Date:08/29/2025 Address:[address] [place], [place] [id number] Pcp:Иван Mackey M.D. Subjective: * Chief Complaints: * C bd stone * The named appointment provid er may or may not be the originator of this progress note, and it is not deemed complete until electronically signed by the appointment provider. Sign off status: Pending * Provider: Escobar Anderson MD Date: 10/30/2024 Generated for Aggie hamilton/Jesica/eTransmitting on: 08:44 AM EST
--- OUTSIDE RECORDS SUMMARY | 2025-09-16 08:44 | XMS_ITS | Encounter Summary ---
Author Organization [employer] Address 75 [facility] 7 [place] [address] Care Team Providers Care Yarn Spinner Name Role Phone Иван Mackey MD Primary Care Provider [phone] Reason for Visit * Reason Onset Date Comments Hospital Follow-up 09/02/2025 Encounter Details Date Type Department Care Team ([facility] st Contact Info) Description 09/02/2025 Telephone [facility] [address] [place], [place] [phone] Иван Mackey MD 505 [place] [address] Hospital Follow-up Social History Tobacco Use Types Packs/Day Years Used Date Smoking Tobacco: Former Cigarettes 2 20 1 - 1989 Smokeless Tobacco: Never Comments:Sober since 1981 Housing Stability Answer Date Recorded What is your housing situation today? I have ashlee jennifer 01/29/[address] you li [...] encounter Miscellaneous Notes * Telephone Encounter - Yovany Corrales - 09/02/2025 9:58 AM EST Tc from pt requesting a HDF appt. Hospital: [facility] Date of admission: 08/26 Discharge date: 08/31 Diagnosed: gallbladder has to come out *Send message to [place] Clinical Care Coordinators Contact pt at [phone] documented in this encounter Plan of Treatment Upcoming Encounters Date Type Department Care Team (Late st Contact Info) Description 10/03/2025 9:30 AM EST Clinical Support [facility] [address] [place] [address] Michaela Parrish, RN [address] [place] [address] documented as of this encounter Goals Goal Patient Goal Type Associated Problems Recent Progress Patient-Stated? Author Blood Pressure < 140/90 Blood Pressure 114/66(2024 2:43 PM EST) No Brian Rios, PharmD Patient will adhere to medication regimen General No Brian Rios, PharmD Hemoglobin A1c < 7 Result Component 6.5( 9:38 AM EST) No Brian Rios, PharmD Help patients manage their type 2 diabetes Care Plan Help patients manage their type 2 diabetes No Иван Mackey MD Weekly blood pressure task Care Plan Weekly blood pressure task No Иван Mackey MD Help patients manage their type 2 diabetes Care Plan Help patients manage their type 2 diabetes No Иван Mackey MD Patient has chronic kidney disease Care Plan Patient has chronic kidney disease No Иван Mackey MD Weekly blood pressure task Care Plan Weekly blood pressure task No Иван Mackey MD Patient has chronic kidney disease Care Plan Patient has chronic kidney disease No Иван Mackey MD documented as of this encounter Visit Diagnoses Not on filedocumented in this encounter Additional Health Concerns Active Problems Noted Date Diagnosed Date Help patients manage their type 2 diabetes 08/22 Weekly blood pressure task 08/22/2025 Help patients manage their type 2 diabetes 08/22 Patient has chronic kidney disease 08/22/2025 Weekly blood pressure task 08/22/2025 Patient has chronic kidney disease 08/22/2025 documented as of this encounter Care Teams Yarn Spinner Relationship Specialty Start Date End Date Иван Mackey MD [address] [place] [address] PCP - General Internal Medicine 04/18/15 documented as of this encounter
--- OUTSIDE RECORDS SUMMARY | 2025-09-16 08:45 | XMS_ITS | Encounter Summary ---
Author Organization [employer] Address 75 [facility] 7 [place] [address] Care Team Providers Care Leather Coverer Name Role Phone Иван Mackey MD Primary Care Provider [phone] Encounter Details Date Type Department Care Team ([facility] st Contact Info) Description 01/17/2024 Orders Only [facility] MED [facility]EDS [address] [place], [place] [phone] Иван Mackey MD [address] [place] [address] Chronic pain syndrome Social History Tobacco Use [...] Description 10/03/2025 9:30 AM EST Clinical Support [facility] [address] [place] [address] Michaela Parrish, RN 505 [place] [address] documented as of this encounter Goals Goal Patient Goal Type Associated Problems Recent Progress Patient-Stated? Author Blood Pressure < 140/90 Blood Pressure 114/66(2024 2:43 PM EST) No Dellogono, Brian, PharmD Patient will adhere to medication regimen General No Dellogono, Brian, PharmD Hemoglobin A1c < 7 Result Component 6.5( 9:38 AM EST) No Dellogono, Brian, PharmD documented as of this encounter Visit Diagnoses Diagnosis Chronic pain syndrome documented in this encounter Care Teams Leather Coverer Relationship Specialty Start Date End Date Иван Mackey MD [address] [place] [address] PCP - General Internal Medicine 04/18/15 documented as of this encounter
--- OUTSIDE RECORDS SUMMARY | 2025-09-16 08:45 | XMS_ITS | Encounter Summary ---
Author Organization [email or web address] Address [address] [facility] 7 [place] [address] Care Team Providers Care Guest Associate Name Role Phone Иван Mackey MD Primary Care Provider [phone] Reason for Visit * Reason Onset Date Comments Med Refill 09/11/2025 Encounter Details Date Type Department Care Team ([facility] st Contact Info) Description 09/11/2025 Refill [facility] [address] [place] [address] Иван Mackey MD 505 [place] [address] Chronic pain syndrome Social History Tobacco Use [...] t he electric, gas, oil or water Digital Message Display threatened to shut off services in your [...] encounter Miscellaneous Notes * Telephone Encounter - Darlene Rodgers - 09/11/2025 9:42 AM EST tramadol documented in this encounter Plan of Treatment Upcoming Encounters Date Type Department Care Team (Late st Contact Info) Description 10/03/2025 9:30 AM EST Clinical Support [facility] MED & PEDS 505 [place] [address] Michaela Parrish RN 505 [place] [address] documented as of this encounter Goals Goal [...] Care Plan Patient has chronic kidney disease Иван Esparza MD Weekly blood pressure task Care Plan Weekly blood pressure task No Иван Mackey MD Patient has chronic kidney disease Care Plan Patient has chronic kidney disease No Иван Mackey MD Weekly blood pressure task Care Plan Weekly blood pressure task No Иван Mackey MD Weekly blood pressure task Care Plan Weekly blood pressure task No Иван Mackey MD Patient has chronic kidney disease Care Plan Patient has chronic kidney disease No Иван Mackey MD Patient has chronic kidney disease Care Plan Patient has chronic kidney disease No Иван Mackey MD Patient has diabetic neuropathy Care Plan Patient has diabetic neuropathy No Иван Mackey MD Patient has diabetic neuropathy Care Plan Patient has diabetic neuropathy No Иван Mackey MD documented as of this encounter Visit Diagnoses Diagnosis Chronic pain syndrome documented in this encounter Additional Health Concerns Active Problems Noted Date Diagnosed Date Help patients manage their type 2 diabetes 08/22 Weekly blood pressure task 08/22/2025 Help patients manage their type 2 diabetes 08/22 Patient has chronic kidney disease 08/22/2025 Weekly blood pressure task 08/22/2025 Patient has chronic kidney disease 08/22/2025 Weekly blood pressure task 09/05/2025 Weekly blood pressure task 09/05/2025 Patient has chronic kidney disease 09/05/2025 Patient has chronic kidney disease 09/05/2025 Patient has diabetic neuropathy 09/05/2025 Patient has diabetic neuropathy 09/05/2025 documented as of this encounter Care Teams Guest Associate Relationship Specialty Start Date End Date Иван Mackey MD [address] [place] [address] PCP - General Internal Medicine 04/18/15 documented as of this encounter
--- OUTSIDE RECORDS SUMMARY | 2025-09-16 08:45 | XMS_ITS | Encounter Summary ---
Author Organization [employer] Address 75 [facility] 7 [place] [address] Care Team Providers Care Language Path Name Role Phone Иван Mackey MD Primary Care Provider [phone] Reason for Visit * Reason Comments Med Refill Encounter Details Date Type Department Care Team ([facility] st Contact Info) Description 02/17/2024 Refill [facility] MED & PEDS [address] [place], [place] [phone] Иван Mackey MD 505 [place] [address] Chronic pain syndrome Social History Tobacco Use [...] 9:30 AM EST Clinical Support [facility] MED & PEDS [address] [place] [address] Michaela Parrish, RN 505 [place] [address] documented as of this encounter Goals Goal [...] syndrome documented in this encounter Care Teams Language Path Relationship Specialty Start Date End Date Иван Mackey MD 505 [place] [address] PCP - General Internal Medicine 04/18/15 documented as of this encounter
--- OUTSIDE RECORDS SUMMARY | 2025-09-16 08:45 | XMS_ITS | Encounter Summary ---
Author Organization [employer] Address 75 [facility] 7t [place] [address] Care Team Providers Care Traffic Ii Manager Name Role Phone Иван Mackey MD Primary Care Provider [phone] Encounter Details Date Type Department Care Team ([facility] st Contact Info) Description 07/08/2025 Orders Only [facility] CH[facility] MED & PEDS [address] [place], [place] [phone] ProviderCarina MD Social History Tobacco Use Types [...] Description 10/03/2025 9:30 AM EST Clinical Support [facility] MED & PEDS 505 [place] [address] Michaela Parrsih RN 505 [place] [address] documented as of this encounter Goals Goal [...] on filedocumented in this encounter Care Teams Traffic Ii Manager Relationship Specialty Start Date End Date Иван Mackey MD [address] [place] [address] PCP - General Internal Medicine 04/18/15 documented as of this encounter
--- OUTSIDE RECORDS SUMMARY | 2025-09-16 08:45 | XMS_ITS | Patient Health Record ---
Author Organization [facility] Address [address] [place] [address] Care Team Providers Care Public Health Inspector Name Role Phone Narendra Phan, Иван Primary Care Provider Un available Fernando Anderson Unavailable [phone] Results Component Value Reference Range Flag Notes Hemoglobin and Hematocrit Reviewed date:08/30/2025 12:31:05 AM Interpretation: Performing Lab:[facility], [address] [place] [phone] Notes/Report: Hemoglobin 13.3 14.0-18.0 g/dl L Hematocrit 39.8 42.0-52.0 % L FL guidance in OR Reviewed date:09/01/2025 12:47:39 AM Interpretation: Performing Lab: Notes/Report: [address] [address] Fluoroscopy Report Signed Patient: Ricky Dickson MR#: [id number] 65 : 1950 Acct:[id number] Age/Sex: 75 / M ADM Date: 08/28/25 Loc: [facility] 445-[address]: Connie Gamino MD Ordering Physician: Fernando Anderson MD Date of Service: 08/29/25 Procedure(s): FL guidance in OR Accession Number(s): [id number] cc: Иван Mackey MD; Fernando Anderson MD Reason for Exam: ERCP EXAMINATION: FLUOROSCOPY GUIDANCE FOR NEEDLE PLACEMENT CLINICAL INFORMATION: ERCP COMPARISON: Previous abdominal ultrasound and CT of the abdomen and pelvis August 28, 2025 TECHNIQUE: Intraoperative fluoroscopic guidance provided for ERCP. FINDINGS: 10 intraoperative fluoroscopic images submitted. Earliest images demonstrate a wire in the extrahepatic and right-sided intrahepatic bile ducts. Mild intra and extrahepatic biliary duct dilatation. Question of small filling defects in the distal common bile duct on early images. This may represent stones versus air bubbles. Later images demonstrate balloon in the extrahepatic bile ducts. Later images demonstrate decompression of the biliary system with contrast in the small bowel. There is contrast seen in the gallbladder with round filling defects suggestive of gallstones. See procedure note for detailed findings. FLUOROSCOPY TIME: 3.25 minutes DOSE AREA PRODUCT: 25 Gy-cm2 FL/FL guidance in OR IMPRESSION: Fluoroscopy guidance for ERCP. Electronically signed by: Arabella García MD 08/30/2025 07:55 AM [facility] Dictated By: Arabella García MD Signed By: <Electronically signed by Arabella García MD in OV> 08/30/25 0755 DD/ 1611 TD/TT: 08/29/25 1655 Body Repairer: CARMELLA Liver Panel Reviewed date:09/01/2025 12:47:39 AM Interpretation: Performing Lab:[facility], [address] [place] [phone] Notes/Report: Bilirubin Total 1.0 0.0-1.0 mg/dL N Bilirubin Direct 0.6 0.0-0.5 mg/dL H Aspartate Amino Transferase 37 5-37 U/L N Alanine Aminotransferase 145 0-40 U/L H Total Protein 6.3 6.5-8.0 g/dL L Albumin Level 3.6 3.5-5.0 g/dL N Alkaline Phosphatase 98 39-117 U/L N Basic Metabolic Panel Reviewed date:09/01/2025 12:47:39 AM Interpretation: Performing Lab:[facility], [address] [place] [phone] Notes/Report: Sodium 142 135-145 mmol/L N Potassium 3.9 3.3-5.1 mmol/L N Chloride 110 96-108 mmol/L H Carbon Dioxide 22 22-29 mmol/L N Anion Gap 14 12-20 N Blood Urea Nitrogen 22 9-16 mg/dL H Creatinine 0.78 0.5-1.4 mg/dL N Creatinine Clr Calc Pharmacy 84.4 eGFR (calculated from the MDRD study equation) and eCrCl (calculated from the Cockcroft-Gault equation) are based on different parameters and may not yield comparable results. If eCrCl result is absurd, please check patient's height/weight. Estimated Glomerular Filt Rate > 60 Chronic Kidney Disease: Estimated GFR < 60 mL/min/1.73m2 Severe Kidney Disease: Estimated GFR < 15 mL/min/1.73m2 Glucose Random 151 60-115 mg/dL H Calcium 8.5 8.4-10.2 mg/dL Phosphorus Reviewed date:09/01/2025 12:47:39 AM Interpretation: Performing Lab:[facility], [address] [place] [phone] Notes/Report: Phosphorus 3.0 2.7-4.5 mg/dL N Magnesium Reviewed date:09/01/2025 12:47:39 AM Interpretation: Performing Lab:[facility], [address] [place] [phone] Notes/Report: Magnesium 2.2 1.6-2.6 mg/dL N Liver Panel Reviewed date:08/28/2025 05:09:31 PM Interpretation: Performing Lab:[facility], [address] [place] [phone] Notes/Report: Bilirubin Total 2.9 0.0-1.0 mg/dL H Slight Icterus. Bilirubin Direct 1.9 0.0-0.5 mg/dL H Sligh t Icterus. Aspartate Amino Transferase 157 5-37 U/L H Alanine Aminotransferase 299 0-40 U/L H Total Protein 6.2 6.5-8.0 g/dL L Albumin Level 3.6 3.5-5.0 g/dL N Alkaline Phosphatase 129 39-117 U/L H Prothrombin Time INR Reviewed date:08/28/2025 05:10:08 PM Interpretation: Performing Lab:[facility], [address] [place] [phone] Notes/Report: Prothrombin Time 15.6 11.2-13.5 SEC H INTERNATIONAL NORM RATIO 1.3 0.9-1.1 H INTERNATIONAL NORMALIZED RATIO (INR) REFERENCE RANGES Reference Range For patients not on anticoagulant therapy: 0.9 - 1.1 INR ranges for oral anticoagulant therapy: For prevention and treatment of venous thrombosis and pulmonary embolism: 2.0 - 3.0 For acute myocardial infarction with aspirin therapy: 2.0 - 3.0 For acute myocardial infarction without aspirin therapy: 3.0 - 4.0 For patients with mechanical prosthetic heart valves: 2.5 - 3.5 Hold Lav - Possible Hematolo gy Reviewed date:08/28/2025 05:10:01 PM Interpretation: Performing Lab:[facility], [address] [place] [phone] Notes/Report: Hold Lav - Possible Hematology SEE NOTE Specimen will be held untested for 8 hours. Call Hematology if testing is desired. Prothrombin Time INR Reviewed date:08/29/2025 09:57:10 AM Interpretation: Performing Lab:[facility], [address] [place] [phone] Notes/Report: Prothrombin Time 13.8 11.2-13.5 SEC H INTERNATIONAL NORM RATIO 1.1 0.9-1.1 N INTERNATIONAL NORMALIZED RATIO (INR) REFERENCE RANGES Reference Range For patients not on anticoagulant therapy: 0.9 - 1.1 INR ranges for oral anticoagulant therapy: For prevention and treatment of venous thrombosis and pulmonary embolism: 2.0 - 3.0 For acute myocardial infarction with aspirin therapy: 2.0 - 3.0 For acute myocardial infarction without aspirin therapy: 3.0 - 4.0 For patients with mechanical prosthetic heart valves: 2.5 - 3.5 Magnesium Reviewed date:08/29/2025 09:57:10 AM Interpretation: Performing Lab:[facility], [address] [place] [phone] Notes/Report: Magnesium 1.5 1.6-2.6 mg/dL L Phosphorus Reviewed date:08/29/2025 09:57:10 AM Interpretation: Performing Lab:[facility], [address] [place] [phone] Notes/Report: Phosphorus 1.7 2.7-4.5 mg/dL L Basic Metabolic Panel Reviewed date:08/29/2025 09:57:10 AM Interpretation: Performing Lab:[address] [phone] Notes/Report: Sodium 141 135-145 mmol/L N Potassium 3.5 3.3-5.1 mmol/L N Chloride 111 96-108 mmol/L H Carbon Dioxide 21 22-29 mmol/L L Anion Gap 13 12-20 N Blood Urea Nitrogen 14 9-16 mg/dL N Creatinine 0.61 0.5-1.4 mg/dL N Creatinine Clr Calc Pharmacy 108.0 eGFR (calculated from the MDRD study equation) and eCrCl (calculated from the Cockcroft-Gault equation) are based on different parameters and may not yield comparable results. If eCrCl result is absurd, please check patient's height/weight. Estimated Glomerular Filt Rate > 60 Chronic Kidney Disease: Estimated GFR < 60 mL/min/1.73m2 Severe Kidney Disease: Estimated GFR < 15 mL/min/1.73m2 Glucose Random 139 60-115 mg/dL H Calcium 8.0 8.4-10.2 mg/dL L Liver Panel Reviewed date:08/29/2025 09:57:10 AM Interpretation: Performing Lab:[address] [phone] Notes/Report: Bilirubin Total 1.4 0.0-1.0 mg/dL H Bilirubin Direct 0.8 0.0-0.5 mg/dL H Aspartate Amino Transferase 73 5-37 U/L H Alanine Aminotransferase 195 0-40 U/L H Total Protein 5.8 6.5-8.0 g/dL L Albumin Level 3.3 3.5-5.0 g/dL L Alkaline Phosphatase 101 39-117 U/L N Complete Blood Count Auto Di ff Reviewed date:08/29/2025 09:57:10 AM Interpretation: Performing Lab:[facility], [address] [place] [phone] Notes/Report: White Blood Count 15.4 4.8-10.8 X10*3/uL H Red Blood Count 4.61 4.60-5.80 X10*6/uL N Hemoglobin 13.1 14.0-18.0 g/dl L Hematocrit 38.8 42.0-52.0 % L Mean Corpuscular Volume 84.2 80.0-98.0 fL N Mean Corpuscular Hemoglobin 28.4 27.0-33.0 pg N Mean Corpuscular HGB Conc 33.8 31.0-36.0 g/dl N Red Cell Distribution Width 14.1 11.0-16.0 % N Platelet Count 101 160-400 X10*3/uL L Mean Platelet Volume 10.9 9.4-12.4 fL N Neutrophils Percent Auto 86.9 45-73 % H Imm Gran Pct Auto 1.7 0.0-0.4 % H Lymphocytes Percent Auto 5.8 20-40 % L Monocytes Percent Auto 5.2 2-11 % N Eosinophils Percent Auto 0.1 0-4 % N Basophils Percent Auto 0.3 0-2 % N NRBC Pct Auto 0.0 0.0-0.2 /100WBC N Neutrophils Absolute Auto 13.4 2.0-8.3 x10*3/uL H Imm Gran Abs Auto 0.26 0.00-0.03 X10*3/uL H Lymphocytes Absolute Auto 0.9 1.2-4.9 X10*3/uL L Monocytes Absolute Auto 0.8 0.1-1.2 X10*3/uL N Eosinophils Absolute Auto 0.0 0.0-0.4 X10*3/uL N Basophils Absolute Auto 0.0 0.0-0.2 X10*3/uL N NRBC Abs Auto 0.000 0.0-0.012 X10*3/uL N Reason For Referral No Information Encounters Encounter Location Date Provider Diagnosis [facility] Inpatient [address] [place], [place] [id number] 08/29/2025 Fernando Anderson [facility] [address] [facility] [address] [place] [address] 09/02/2025 Fernando Anderson Plan Of Treatment No Information Insurance Providers Payer Name Payer Address Payer Phone Subscriber Number Group Number Insured Name Patient Relationship to Insured Coverage Start Date Coverage End Date [employer] Medicare Advantage Plan [address] [address] [place] [address] [id number] RICKY DICKSON Self - patient is the insured
--- OUTSIDE RECORDS SUMMARY | 2025-09-16 08:45 | XMS_ITS | Encounter Summary ---
Author Organization [employer] Address [address] [place] [address] 7 [place] [address] Care Team Providers Care Nuclear Medicine Technologist Name Role Phone Иван Mackey MD Primary Care Provider [phone] Reason for Visit * Reason Comments Med Refill Encounter Details Date Type Department Care Team (Late st Contact Info) Description 10/13/2022 Refill [facility] [address] [place] [address] Иван Mackey MD [address] [place] [address] Chronic pain syndrome Social History Tobacco Use [...] Description 10/03/2025 9:30 AM EST Clinical Support [facility] MED [facility] PEDS [address] [place], [place] [phone] Michaela Parrish, LUBA [address] [place], [place] [phone] documented as of this encounter Visit Diagnoses Diagnosis Chronic pain syndrome documented in this encounter Care Teams Nuclear Medicine Technologist Relationship Specialty Start Date End Date Иван Mackey MD [address] [place] [address] PCP - General Internal Medicine 04/18/15 documented as of this encounter
--- OUTSIDE RECORDS SUMMARY | 2025-09-16 08:45 | XMS_ITS | Encounter Summary ---
Author Organization [email or web address] Address [address] [facility] 7t [place] [address] Care Team Providers Care Caustic Preparer Name Role Phone Иван Mackey MD Primary Care Provider [phone] Encounter Details Date Type Department Care Team (Late st Contact Info) Description 03/29/2024 Orders Only [facility] MED & PEDS [address] [place], [place] [phone] Иван Mackey MD [address] [place] [address] Type 2 diabetes mellitus with hyperglycemia, without long-term current use of insulin ([facility]) (Primary Dx) Social History Tobacco Use Types [...] [facility] MED & PEDS [address] [place] [address] Michaela Parrish, LUBA [address] [place] [address] documented as of this encounter Goals Goal [...] Primary documented in this encounter Care Teams Caustic Preparer Relationship Specialty Start Date End Date Иван Mackey MD [address] [place] [address] PCP - General Internal Medicine 04/18/15 documented as of this encounter
--- OUTSIDE RECORDS SUMMARY | 2025-09-16 08:45 | XMS_ITS | Encounter Summary ---
Author Organization [employer] Address 75 [facility] 7 [place] [address] Care Team Providers Care General Machine Operator Name Role Phone Иван Mackey MD Primary Care Provider [phone] Reason for Visit * Reason Comments Med Refill Encounter Details Date Type Department Care Team ([facility] st Contact Info) Description 01/17/2024 Refill [facility] MED & PEDS [address] [place], [place] [phone] Иван Mackey MD [address] [place] [address] Chronic pain syndrome Social History Tobacco Use [...] Description 10/03/2025 9:30 AM EST Clinical Support [facility] MED & PEDS [address] [place] [address] Michaela Parrish, LUBA [address] [place] [address] documented as of this encounter Goals Goal [...] syndrome documented in this encounter Care Teams General Machine Operator Relationship Specialty Start Date End Date Иван Mackey MD [address] [place] [address] PCP - General Internal Medicine 04/18/15 documented as of this encounter
--- OUTSIDE RECORDS SUMMARY | 2025-09-16 08:45 | XMS_ITS | Encounter Summary ---
Author Organization [employer] Address [address] [place] [address] 7 [place] [address] Care Team Providers Care Credit Authorizer Name Role Phone Иван Mackey MD Primary Care Provider [phone] Encounter Details Date Type Department Care Team ([facility] Contact Info) Description 02/16/[address] [facility] [employer] Information Management [address] [place] [address] Иван Mackey MD [address] [place], [place] [phone] Social History Tobacco Use Types Packs/Day Years [...] Description 10/03/2025 9:30 AM EST Clinical Support [facility] MED & PEDS [address] [place], [place] [phone] Michaela Parrish RN [address] [place], [place] [phone] documented as of this encounter Goals Goal Patient Goal Type Associated Problems Recent Progress Patient-Stated? Author Blood Pressure < 140/90 Blood Pressure 114/66(2024 2:43 PM EST) No Brian Rios PharmD Patient will adhere to medication regimen General No Brian Rios PharmD Hemoglobin A1c < 7 Result Component 6.5( 9:38 AM EST) No Brian Rios PharmD documented as of this encounter Visit Diagnoses Not on filedocumented in this encounter Care Teams Credit Authorizer Relationship Specialty Start Date End Date Иван Mackey MD [address] [place] [address] PCP - General Internal Medicine 04/18/15 documented as of this encounter
--- OUTSIDE RECORDS SUMMARY | 2025-09-16 08:45 | XMS_ITS | Encounter Summary ---
Author Organization [employer] Address [address] [facility] [address] [place] [address] Care Team Providers Care Personal Lines Appraiser Name Role Phone Иван Mackey MD Primary Care Provider [phone] Encounter Details Date Type Department Care Team ([facility] st Contact Info) Description 09/11/2025 Orders Only [facility] [address] [place], [place] [phone] Иван Mackey MD [address] [place] [address] Primary hypertension (Primary Dx); Choledocholithiasis Social History Tobacco Use Types Packs/Day Years Used Date Smoking Tobacco: Former Cigarettes 2 20 1 0 - 1989 Smokeless Tobacco: Never Comments:Sober since 1981 Housing Stability Answer Date Recorded What is your housing situation today? I have ashleeguillermo rodriguez 01/29/[address] [...] the past 12 months, has t he [employer], oil or water company threatened to shut [...] [facility] [address] [place] [address] Michaela Parrish, LUBA [address] [place] [address] Scheduled Orders Name Type Priority Associated Diagnoses Orde r Schedule Hepatic Function Panel Lab Routine Choledocholithiasis Expected: 09/11/2025 (Approximate), Expires: 09/11/2026 documented as of this encounter Goals Goal Patient Goal Type Associated Problems Recent Progress Patient-Stated? Author Blood Pressure < 140/90 Blood Pressure 114/66(2024 2:43 PM EST) No Brian Rios, PharmMati Patient will adhere to medication regimen General [...] Diagnosis Primary hypertension- Primary Unspecified essential hypertension Choledocholithiasis Calculus of bile duct without mention of cholecystitis or obstruction documented in this encounter Additional Health Concerns [...] documented as of this encounter Care Teams Personal Lines Appraiser Relationship Specialty Start Date End Date Иван Mackey MD [address] [place] [id number] PCP - General Internal Medicine 04/18/15 documented as of this encounter
--- OUTSIDE RECORDS SUMMARY | 2025-09-16 08:45 | XMS_ITS | Encounter Summary ---
Author Organization [facility] Address [address] [place] [id number] Care Team Providers Care Paste Mixer Name Role Phone Иван Mackey MD Primary Care Provider [phone] Reason for Visit * Reason Comments Med Refill Encounter Details Date Type Department Care Team ([facility] Contact Info) Description 09/10/2022 Refill [facility] [address] [place] [address] Иван Mackey MD [address] [place] [address] Acute cough; Unspecified osteoarthritis, unspecified site Social [...] Upcoming Encounters Date Type Department Care Team ([facility] Contact Info) Description 10/03/2025 9:30 AM EST Clinical Support [facility] [address] [place], [place] [phone] Michaela Parrish, LUBA [address] [place], [place] [phone] documented as of this encounter Visit Diagnoses Diagnosis Acute cough Unspecified osteoarthritis, unspecified site documented in this encounter Care Teams Paste Mixer Relationship Specialty Start Date End Date Иван Mackey MD [address] [place] [id number] PCP - General Internal Medicine 04/18/15 documented as of this encounter
--- OUTSIDE RECORDS SUMMARY | 2025-09-16 08:45 | XMS_ITS | Clinical Summary ---
Author Organization [employer] Address [address] [place] [address] [address] [place] [address] Care Team Providers Care Interior Assemblies Developer Prover Name Role Phone Иван Mackey MD Primary Care Provider [phone] Allergies Active Allergy Reactions Criticality Noted Date Comments Atorvastatin Muscle Pain 08/28/2025 muscle aches Medications albuterol 108 (90 Base) MCG/ACT inhaler inhale 2 puff by inhalation route once every 6 hours as needed. 022 Active spironolactone (Aldactone) 25 MG tabletIndications :Primary hypertension TAKE ONE TABLET EVERY MORNING 90 tablet 3 5 9:11 AM EST 025 Active omeprazole (PriLOSEC) [address] capsuleIndication s:Chronic gastritis without bleeding, unspecified gastritis type TAKE ONE CAPSULE IN THE MORNING AND EVENING 60 capsule 11 025 Active metFORMIN (Glucophage) 1000 MG tablet TAKE ONE TABLET IN THE MORNING AND EVENING 180 tablet 3 025 Active colchicine 0.6 MG tabletIndications :Acute gout involving toe of left foot, unspecified cause 1.2 mg PEG, 0.6 mg 1 hour after if needed, 1 tab 24 hours after if needed. 10 tablet 1 025 Active cetirizine (ZyrTEC) 10 MG tabletIndications :Seasonal allergies TAKE ONE TABLET EVERY DAY 30 tablet 11 025 Active Jardiance 10 MG TAKE ONE TABLET EVERY MORNING 30 tablet 11 025 Active Ketotifen Fumarate 0.035 % solutionIndicatio ns:Contact dermatitis, unspecified contact dermatitis type, unspecified trigger Administer 1 drop into affected eye(s) 2 times daily. 5 mL Active clobetasol (Temovate) 0.05 % ointmentIndicatio ns:Contact dermatitis, unspecified contact dermatitis type, unspecified trigger Apply topically 2 times daily. 45 g 1 Active Blood Glucose Monitoring Suppl (Accu-Chek Guide Me) w/Device kitIndications:Co ntact dermatitis, unspecified contact dermatitis type, unspecified trigger,Type 2 diabetes mellitus with hyperglycemia, without long-term current use of insulin ([facility]) To use once a day 1 kit Active glucose blood (Accu-Chek Zakia Plus) test stripIndications: Type 2 diabetes mellitus with hyperglycemia, without long-term current use of insulin ([facility]) To check the blood sugar 2 times a day 100 each 12 025 2025 Active Lancets misc To check the FS 2 times a day 100 each 11 Active naloxone (Narcan) 4 mg/0.1 mL nasal spray Administer 1 spray (4 mg) into affected nostril(s) if needed for opioid reversal. Use 1 by To Skin route 2 times every day 2 each 1 Active metoprolol succinate XL (Toprol-XL) 50 MG 24 hr tablet Take 1 tablet by mouth in the morning. Active sacubitril-valsar alvarez (Entresto) 24-26 MG tablet Take 1 tablet by mouth 2 times daily. Active gabapentin (Neurontin) 100 MG capsuleIndication s:Diabetic polyneuropathy associated with type 2 diabetes mellitus (HCC) Take 1 capsule (100 mg) by mouth 3 times daily. 270 capsule 3 5 9:00 AM EST Active Tiotropium Mcdonald (Spiriva HandiHaler) [address] 18 mcg into inhaler and inhale Once per day. 30 capsule 11 5 9:00 AM EST Active lidocaine 2 % gel Insert into the urethra if needed for mild pain. 20 mL Active lidocaine-priloca ine (Emla) 2.5-2.5 % creamIndications: Phlebitis Apply topically 1 (one) time for 1 dose. 30 g 1 5 9:00 AM EST 2025 Active traMADol (Ultram) 50 MG tabletIndications :Chronic pain syndrome Take 1 tablet (50 mg) by mouth every 12 (twelve) hours if needed for severe pain. 56 tablet Active aspirin 81 MG EC tabletIndications :Primary hypertension Take 1 tablet (81 mg) by mouth Once per day. 90 tablet 3 025 2025 Active Spiriva HandiHaler 18 MCG inhalation capsule INHALE ONE PUFFS BY MOUTH ONCE DAILY 30 capsule 11 023 2024 Discontinued(R eorder (will not trigger notification to Pharmacy)) amiodarone (Pacerone) 200 MG tablet TAKE 1 TABLET BY MOUTH TWO TIMES A DAY THROUGH 08/10/23. 023 2024 Discontinued(M ed list cleanup (will not trigger notification to Pharmacy)) Eliquis 5 MG tablet TAKE ONE TABLET IN THE MORNING AND EVENING 60 tablet 024 2024 Discontinued(M ed list cleanup (will not trigger notification to Pharmacy)) traZODone (Desyrel) 50 MG tabletIndications :Primary insomnia TAKE ONE OR TWO TABLETS AT BEDTIME 60 tablet 5 024 2024 Discontinued(M ed list cleanup (will not trigger notification to Pharmacy)) Blood Glucose Monitoring Suppl (Blood Glucose Monitor System) w/Device kit To check the FS 2 times a day 1 kit 024 2024 Discontinued(D uplicate order (will not trigger notification to Pharmacy)) Lancets Misc. (Accu-Chek FastClix Lancet) kitIndications:Ty pe 2 diabetes mellitus with hyperglycemia, without long-term current use of insulin (HCC) FS 2 times a day 1 kit 024 2024 Discontinued(D uplicate order (will not trigger notification to Pharmacy)) gabapentin (Neurontin) 100 MG capsule Take 1 capsule (100 mg) by mouth 3 times daily. 270 capsule 3 024 2024 Discontinued(R eorder (will not trigger notification to Pharmacy)) metoprolol tartrate (Lopressor) 25 MG tabletIndications :Primary hypertension TAKE ONE TABLET IN THE MORNING AND EVENING 180 tablet 3 2024 Discontinued(M ed list cleanup (will not trigger notification to Pharmacy)) Blood Glucose Monitoring Suppl (Accu-Chek Zakia Plus) w/Device kitIndications:Ty pe 2 diabetes mellitus with hyperglycemia, without long-term current use of insulin ([facility]) To check the FS 2 times a day 1 kit 2024 Discontinued(D uplicate order (will not trigger notification to Pharmacy)) glucose blood test strip To use once a day 100 each 12 2024 Discontinued(D uplicate order (will not trigger notification to Pharmacy)) latanoprost (Xalatan) 0.005 % ophthalmic solution PLACE ONE DROP IN EACH EYE EVERY NIGHT AT BEDTIME 2024 Discontinued(M ed list cleanup (will not trigger notification to Pharmacy)) Aspirin Adult Low Strength 81 MG EC tablet TAKE ONE TABLET EVERY MORNING 90 tablet 3 025 2024 Discontinued(M ed list cleanup (will not trigger notification to Pharmacy)) atorvastatin (Lipitor) 80 MG tablet TAKE ONE TABLET EVERY EVENING 90 tablet 3 5 9:11 AM EST 2024 Discontinued(M ed list cleanup (will not trigger notification to Pharmacy)) traMADol (Ultram) 50 MG tabletIndications :Chronic pain syndrome Take 1 tablet (50 mg) by mouth every 12 (twelve) hours if needed for severe pain. 56 tablet 5 9:11 AM EST 2024 Discontinued(R eorder (will not trigger notification to Pharmacy)) cephalexin (Keflex) 500 MG capsule Take 1 capsule by mouth 2 times daily. 2024 metroNIDAZOLE (Flagyl) 500 MG tablet Take 1 tablet by mouth 3 times daily. 2024 Active Problems Problem Noted Date Diagnosed Date Long-term current use of opiate analgesic 2024 Atrial fibrillation (CMS/HCC) 07/21/2023 Left ventricular hypertrophy 12/29/2021 Insomnia 08/07/2020 Chronic pain syndrome 07/13/2017 Erectile dysfunction 12/15/2016 Hypercholesterolemia 12/15/2016 Obesity 12/15/2016 Osteoarthritis of knee 12/15/2016 Diabetes mellitus 05/08/2015 Hypertensive disorder 05/08/2015 Encounters Date Type Department Care Team Description 09/11/2025 Orders Only [facility] [address] [place] [address] Иван Mackey MD Primary hypertension (Primary Dx); Choledocholithiasis 09/11/2025 Telephone [facility] [address] [place] [address] Иван Mackey MD 09/11/2025 Refill [facility] [address] [place] [address] Иван Mackey MD Chronic pain syndrome 09/05/2025 2:45 PM EST Office Visit [facility] [address] [place] [address] Иван Mackey MD Diabetic polyneuropathy associated with type 2 diabetes mellitus (HCC) (Primary Dx); Choledocholithiasis; Phlebitis 09/05/2025 Travel 09/02/2025 Patient Outreach [facility] [address] [place] [address] Иван Mackey MD Transition Of Care (Tcm) (HDF- scheduled and SDOH screening completed on 01/29/2025) 09/02/2025 Telephone [facility] [address] [place] [address] Иван Mackey MD Hospital Follow-up 08/28/2025 Orders Only [facility] External Provider, [facility] 08/22/2025 9:15 AM EST Office Visit [facility] [address] [place] [address] Иван Mackey MD Primary hypertension (Primary Dx); Hypercholesterolemia; Type 2 diabetes mellitus with hyperglycemia, without long-term current use of insulin (HCC); Encounter for immunization 08/22/2025 Travel 08/13/2025 Refill [facility] [address] [place] [address] Michaela Parrish RN Chronic pain syndrome 08/13/2025 Telephone [facility] [address] [place] [phone] Tamela Moise RN Error (VOID this visit) 08/13/2025 Patient Outreach [facility] [address] [place] [phone] Иван Mackey MD Pre-visit Planning ([facility] screening was completed on 01/29/2025) 08/07/2025 9:30 AM EST Clinical Support [facility] [address] [place] [address] Michaela Parrish RN Back pain, unspecified back location, unspecified back pain laterality, unspecified chronicity (Primary Dx) 08/07/2025 Travel 07/31/2025 Refill [facility] [address] [place] [address] Иван Mackey MD 07/15/2025 Refill [facility] [address] [place] [address] Michaela Parrish RN Chronic pain syndrome 07/15/2025 Telephone [facility] [address] [place] [address] Иван Mackey MD Med Refill 07/08/2025 Results Follow-Up [facility] [address] [place] [address] Иван Mackey MD Albumin/Creatinine Ratio, Random Urine 07/08/2025 Orders Only [facility] [address] [place] [address] Provider, MD Carina from Last 3 Months Immunizations Immunization Administration Dates Next Due Hep B, Unspecified 06/04/2011 Hep B, adult 02/07/2025,11/18/2011 Influenza High-dose Quadriva lent Preservative Free 07/15/2023,06/24/2022,06/24/2021,07/02 Influenza Whole 06/04/2011, 0,06/04/2009,08/09,08/16/2006 Influenza injectable quadriv alent IIV4 with preservative 06/14/2018,06/20/2017,08/23/2016,06/26 Influenza, High Dose Seasona l, Preservative Free 08/22/2025,06/14/2024,06/18/2019 Influenza, IIV3, injectable 06/12/2014,0 05/31/2013,05/23/2012,06/12 Novel Fykilnskg-X3V1-57, all formulations 09/09/2009 Pfizer Covid-19 Vaccine 12+ 08/22/2025,,09/07/2023 Pneumococcal Conjugate PCV 13 08/23/2016 Pneumococcal Polysaccharide PPSV23 06/14/2018, RSV Bivalent 09/16/2023 Tdap 10/12/2017,05/29/2008 Zoster, Recombinant 12/07/2022,06/18/2019 Zoster, live 03/08/2012 Social History Tobacco Use Types Packs/Day Years Used Date Smoking Tobacco: Former Cigarettes 2 20 1 970 - 1990 Smokeless Tobacco: Never Tobacco Cessation:Counseling Given: Not [...] Sign Reading Time Taken Comments Blood Pressure 114/66 09/05/2025 2:43 PM EST Pulse 71 09/05/2025 2:43 PM EST Temperature 36.5 C (97.7 F) 09/05/2025 2:43 PM EST Respiratory Rate 20 09/05/2025 2:43 PM EST Oxygen Saturation 95% 09/05/2025 2:43 PM EST Inhaled Oxygen Concentration - - Weight 89.8 kg (198 lb) 09/05/2025 2:43 PM EST Height 174 cm (5' 8.5 ) 09/05/2025 2:43 PM EST Body Mass Index 29.67 09/05/2025 2:43 PM EST Plan of Treatment Upcoming Encounters Date Type Department Care Team (Late st Contact Info) Description 10/03/2025 9:30 AM EST Clinical Support [facility] [address] [place] [address] Michaela Parrish, RN [address] [place] [address] Health Maintenance Due Date Last Done Comments CT Colonography 1950 Colonoscopy 1950 Depression Screening 1950 FIT 1950 Sigmoidoscopy 1950 Alcohol/Substance Use Screening 1962 FOBT 02/13/2025 02/14/2024 Eye Exam 09/29/2025 05/30/2025, 03/0 03/2025, 11/23/2024 SDOH Screening 01/29/2026 01/29/2025 Diabetes: Foot Exam 02/13/2026 02/13/2025, 02/07/2025, 01/24/2024, Additional history exists COVID-19 Vaccine ( season) 2026 08/22/2025, 08/03/2024, 09/07/2023, Additional history exists Diabetes: Hemoglobin A1C 02/20/2026 025, 05/14/2025, 02/07/2025, Additional history exists Lipid Panel 05/14/2026 05/14/2025, 05/0 03/2024, 11/27/2021 Diabetes: Urine Protein Screening 07/03/2026 07/03/2025, 05/14/2025, 01/24/2024, Additional history exists Tobacco Screening 09/05/2026 09/05/2025 Colorectal Cancer Screening 02/13/2027 FIT DNA/Cologuard 02/13/2027 [...] has diabetic neuropathy No Иван Mackey MD Procedures Procedure Name Priority Date/Time Associated Diagnosis Comments FL GUIDANCE IN OR Routine 08/29/2025 4:1 1 PM EST US ABDOMEN LIMITED Routine 08/28/2025 11 :39 AM EST PROTHROMBIN TIME-INR Routine 08/28/2025 9:11 AM EST LACTIC ACID (NON ORDERABLE) Routine 08/28/2025 8:[address] ABDOMEN PELVIS W CONTRAST Routine 08/28/2025 6:19 AM EST LACTIC ACID LAB USE ONLY Routine 08/28/2025 5:18 AM EST POCT GLUCOSE (CPT-32838) Routine 08/22/2025 9:39 AM EST Type 2 [...] RANDOM URINE Routine 07/03/2025 10:44 AM EDT HM DIABETES EYE EXAM Routine 05/30/2025 3:57 [...] Recently Relevant to Health Maintenance Results * FL Guidance in OR (08/29/2025 4:11 PM EST) Anatomical Region Laterality Modality X-Ray Angiograph y 08/29/2025 4:11 PM EST Narrative 08/30/2025 7:58 AM EST [address] [address] Fluoroscopy Report Signed Patient: Eran Mathew MR#: [id number] 65 : 1950 Acct:[id number] Age/Sex: 75 / M ADM Date: 08/28/25 Loc: [facility] 445-[address]: Connie Gamino MD Ordering Physician: Fernando Anderson MD Date of Service: 08/29/25 Procedure(s): FL guidance in OR Accession Number(s): [id number] cc: Иван Mackey MD; Fernando Anderson MD [...] by: Arabella García MD 08/30/2025 07:55 AM EST Dictated By: Arabella García MD Signed By: <Electronically signed by Arabella García MD in OV> 08/30/25 0755 DD/ 1611 TD/TT: 08/29/25 1655 Staff Climate Scientist: CARMELLA Procedure Note Donotuseinterpreter, Image - 08/30/2025 [place] [address] Fluoroscopy Report Signed Patient: Eran Mathew [facility]#: [id number] [birth year] : 1950Acct:[id number] Age/Sex: 75 / MADM Date: 08/28/25 Loc: [facility] 445-[address]: Connie Gamino MD Ordering Physician: Fernando Anderson MD Date of Service: 08/29/25 Procedure(s): FL guidance in OR Accession Number(s): [id number] cc: Иван Mackey MD; Fernando Anderson MD [...] by: Arabella García MD 08/30/2025 07:55 AM EST Dictated By: Arabella García MD Signed By: <Electronically signed by Arabella García MD in OV> 08/30/25 0755 DD/ 1611 TD/TT: 08/29/25 1655 Staff Climate Scientist: CARMELLA [facility] External Provider IMG IR PROCEDURES Final Result * US Abdomen Limited (08/28/2025 11:39 AM EST) Anatomical Region Laterality Modality Abdomen Ultrasound 08/28/2025 11:3 9 AM EST Narrative 08/28/2025 12:19 PM EST [place] [address] Ultrasound Report Signed Patient: Eran Mathew MR#: [id number] [birth year] : 1950 Acct:[id number] Age/Sex: 75 / M ADM Date: 08/28/25 Loc: .[facility] 260-[address]: Lluvia Napier MD Ordering Physician: Lobo Sky PA-C Date of Service: 08/28/25 Procedure(s): US abdomen limited Accession Number(s): [id number] cc: Иван Mackey MD; Lobo Sky PA-C Reason for Exam: RUQ Pain; Abnl LFTs; Septic; Abnl CT EXAMINATION: US ABDOMEN LIMITED CLINICAL INFORMATION: Right upper quadrant pain, abnormal LFTs, sepsis. Cholelithiasis, choledocholithiasis COMPARISON: CT from 08/28/2025 TECHNIQUE: Real-time imaging of the right upper quadrant abdominal viscera. FINDINGS: PANCREAS: Visualized portions are unremarkable. LIVER: Liver size is probably enlarged measuring 22 cm long axis. The liver contour is normal. There is diffuse increased echogenicity. No focal hepatic lesion. There is no intrahepatic biliary duct dilatation. GALLBLADDER: There is no gallbladder wall thickening. There is sludge within the gallbladder. There are also echogenic foci with posterior acoustic shadowing consistent with stones. There is no pericholecystic fluid. COMMON BILE DUCT: Normal in caliber measuring 1.1 cm in diameter. There is an echogenic focus within the extra hepatic bile duct without clear posterior acoustic shadowing RIGHT KIDNEY: No hydronephrosis. There is a 15 mm partially exophytic simple cyst in the extra region of the right kidney.. There is a 2-3 mm echogenic focus in the upper pole consistent with a small stone. The lower pole is partially obscured by bowel gas. The kidney measures 13.3 cm in maximum dimension. FREE FLUID: None. US/US abdomen limited IMPRESSION: Cholelithiasis and gallbladder sludge without gallbladder wall thickening. There is extrahepatic bile duct dilation and possible choledocholithiasis. Hepatic steatosis and possible hepatomegaly. There is a small stone in the upper pole right kidney. Electronically signed by: Faustino Andersen MD 08/28/2025 12:16 PM [facility] Dictated By: Faustino Andersen MD Signed By: <Electronically signed by Faustino Andersen MD in OV> 08/28/25 1216 DD/ 1139 TD/TT: 08/28/25 1152 Staff Climate Scientist: Procedure Note Donotuseinterpreter, Image - 08/28/[address] [address] Ultrasound Report Signed Patient: Eran Mathew [facility]#: [id number] [birth year] : 1950Acct:[id number] Age/Sex: 75 / MADM Date: 08/28/25 Loc: [facility] 260-[address]: Lluvia Napier MD Ordering Physician: Lobo Sky PA-C Date of Service: 08/28/25 Procedure(s): US abdomen limited Accession Number(s): [id number] cc: Иван Mackey MD; Lobo Sky PA-C Reason for Exam: RUQ Pain; Abnl LFTs; Septic; Abnl CT EXAMINATION: US ABDOMEN LIMITED CLINICAL INFORMATION: Right upper quadrant pain, abnormal LFTs, sepsis. Cholelithiasis, choledocholithiasis COMPARISON: CT from 08/28/2025 TECHNIQUE: Real-time imaging of the right upper quadrant abdominal viscera. FINDINGS: PANCREAS: Visualized portions are unremarkable. LIVER: Liver size is probably enlarged measuring 22 cm long axis. The liver contour is normal. There is diffuse increased echogenicity. No focal hepatic lesion. There is no intrahepatic biliary duct dilatation. GALLBLADDER: There is no gallbladder wall thickening. There is sludge within the gallbladder. There are also echogenic foci with posterior acoustic shadowing consistent with stones. There is no pericholecystic fluid. COMMON BILE DUCT: Normal in caliber measuring 1.1 cm in diameter. There is an echogenic focus within the extra hepatic bile duct without clear posterior acoustic shadowing RIGHT KIDNEY: No hydronephrosis. There is a 15 mm partially exophytic simple cyst in the extra region of the right kidney.. There is a 2-3 mm echogenic focus in the upper pole consistent with a small stone. The lower pole is partially obscured by bowel gas. The kidney measures 13.3 cm in maximum dimension. FREE FLUID: None. US/US abdomen limited IMPRESSION: Cholelithiasis and gallbladder sludge without gallbladder wall thickening. There is extrahepatic bile duct dilation and possible choledocholithiasis. Hepatic steatosis and possible hepatomegaly. There is a small stone in the upper pole right kidney. Electronically signed by: Faustino Andersen MD 08/28/2025 12:16 PM [facility] Dictated By: Faustino Andersen MD Signed By: <Electronically signed by Faustino Andersen MD in OV> 08/28/25 1216 DD/ 1139 TD/TT: 08/28/25 1152 Staff Climate Scientist: us [facility] External Provider IMG US PROCEDURES Final Result * (ABNORMAL) Prothrombin Time-INR (08/28/2025 9:11 AM EST) Prothrombin Time 15.6(H) 11.2 - 13.5 SEC [facility] INTERNATIONAL NORM RATIO 1.3(H) 0.9 - 1.1 [facility] Comment:INTERNATIONAL NORMAL IZED RATIO (INR) REFERENCE RANGES Reference RangeFor patients not on anticoagulant therapy: 0.9 - 1.1INR ranges for oral anticoagulanttherapy:For prevention and treatment of venous thrombosis and pulmonary embolism: 2.0 - 3.0For acute myocardial infarction with aspirin therapy: 2.0 - 3.0For acute myocardial infarction without aspirin therapy: 3.0 - 4.0For patients with mechanical prosthetic heart valves: 2.5 - 3.5 08/28/2025 9:11 AM EST 08/28/2025 9:15 AM EST Generic External Data Provider LAB BLOOD ORDERAB LES Final Result Performing Organization Address [facility] Co de Phone Number [facility] [address] [place] [address] [phone] * (ABNORMAL) Lactic Acid (08/28/2025 8:02 AM EST) Lactic Acid 2.6(HH) 0.5 - 2.0 mmol/L [facility] Comment:Critical value for L ACTIC Results called to and read lala: KARYN Person calling: KAYLEE Date: 08/28/25 Time:0847 08/28/2025 8:02 AM EST 08/28/2025 8:04 AM EST Generic External Data Provider HISTORICAL/NON OR DERABLE LABS Final Result Performing Organization Address [facility]/ZIP Co de Phone Number [facility] [address] [place] [address] [phone] * CT Abdomen Pelvis w/ Contrast (08/28/2025 6:19 AM EST) Anatomical Region Laterality Modality Body, Pelvis, Abdomen Computed T omography 08/28/2025 6:19 AM EST Narrative 08/28/2025 6:22 AM EST [address] [address] [address] Scan Report Signed Patient: Eran Mathew MR#: [id number] [birth year] : 1950 Acct:[id number] Age/Sex: 75 / M ADM Date: 08/28/25 Loc: [facility].ED Attending Dr: Ordering Physician: Lobo Sky PA-C Date of Service: 08/28/25 Procedure(s): CT abdomen pelvis w IV con Accession Number(s): [id number] cc: Иван Mackey MD; Lobo Sky PA-C Report Number: [id number]: Total DLP = 591.00 mGy-cm Reason for Exam: Febrile; Abd Pain; ? infected stone CLINICAL HISTORY: Febrile; Abd Pain; ? infected stone CT abdomen and pelvis with contrast Comparison: None provided Findings: The lung bases are clear. The liver, spleen, pancreas, bilateral adrenal glands and bilateral kidneys without acute abnormality or abnormal enhancement. Bilateral cortical renal cysts are noted, more numerous and larger on the left. There are also bilateral nonobstructive intrarenal stones, the largest in the lower polar region of the left kidney measuring nearly 17 mm. There are no radiopaque stones in the ureters or bladder. There no hydronephrosis The gallbladder is distended. Tiny gallstones are noted within the gallbladder lumen. Possibly tiny gallstones within the distal CBD. There is mild intra and extrahepatic biliary dilatation The stomach and bowel loops are nondistended. There are no focal colonic lesions or pneumatosis. There is no mesenteric inflammation. The appendix is normal. No free fluid, collections or free air. No aortic dissection or aneurysm. No lymphadenopathy. The bladder is normal. There no acute soft tissue or skeletal abnormality in the abdomen or pelvis. IMPRESSION: Distended gallbladder with tiny gallstones within the lumen. Suggestion of tiny gallstones within the distal CBD (choledocholithiasis). there is mild biliary dilatation. Recommend correlation with right upper quadrant ultrasound. Nonobstructive bilateral intrarenal stones. Bilateral cortical renal cysts. The examination is otherwise unremarkable. This document has been electronically signed by: Robbi Escobedo MD on 08/28/2025 06:19:45 Dictated By: Robbi Escobedo MD Signed By: <Electronically signed by Robbi Escobedo MD in OV> 08/28/25620 DD/ 8 TD/TT: 08/28/25618 Staff Climate Scientist: Procedure Note Donotuseinterpreter, Image - 08/28/[address] [address] [address] Scan Report Signed Patient: Eran Mathew DMR#: [id number] [birth year] : 1950Acct:[id number] Age/Sex: 75 / MADM Date: 08/28/25 Loc: HO.ED Attending Dr: Ordering Physician: Lobo Sky PA-C Date of Service: 08/28/25 Procedure(s): CT abdomen pelvis w IV con Accession Number(s): [id number] cc: Иван Mackey MD; Lobo Sky PA-C Report Number: [id number]: Total DLP = 591.00 mGy-cm Reason for Exam: Febrile; Abd Pain; ? infected stone CLINICAL HISTORY: Febrile; Abd Pain; ? infected stone CT abdomen and pelvis with contrast Comparison: None provided Findings: The lung bases are clear. The liver, spleen, pancreas, bilateral adrenal glands and bilateral kidneys without acute abnormality or abnormal enhancement. Bilateral cortical renal cysts are noted, more numerous and larger on the left. There are also bilateral nonobstructive intrarenal stones, the largest in the lower polar region of the left kidney measuring nearly 17 mm. There are no radiopaque stones in the ureters or bladder. There nohydronephrosis The gallbladder is distended. Tiny gallstones are noted within the gallbladder lumen. Possibly tiny gallstones within the distal CBD. There is mild intra and extrahepatic biliary dilatation The stomach and bowel loops are nondistended. There are no focal colonic lesions or pneumatosis. There is no mesenteric inflammation. The appendix is normal. No free fluid, collections or free air. No aortic dissection or aneurysm. No lymphadenopathy. The bladder is normal. There no acute soft tissue or skeletal abnormality in the abdomen or pelvis. IMPRESSION: Distended gallbladder with tiny gallstones within the lumen. Suggestion of tiny gallstones within the distal CBD (choledocholithiasis). there is mild biliary dilatation. Recommend correlation with right upper quadrant ultrasound. Nonobstructive bilateral intrarenal stones. Bilateral cortical renal cysts. The examination is otherwise unremarkable. This document has been electronically signed by: Robbi Escobedo MD on 08/28/2025 06:19:45 Dictated By: Robbi Escobedo MD Signed By: <Electronically signed by Robbi Escobedo MD in OV> 08/28/25620 DD/ 8 TD/TT: 08/28/25618 Staff Climate Scientist: [facility] External Provider IMG CT PROCEDURES Final Result * (ABNORMAL) Lactic Acid (08/28/2025 5:18 AM EST) Lactic Acid 2.7(HH) 0.5 - 2.0 mmol/L [facility] Comment:Critical value for t est(s): LA Results called to and readback by: SONA Person calling: IDRISH Date: 08/28/25Time: 05:48 08/28/2025 5:18 AM EST 08/28/2025 5:18 AM EST Generic External Data Provider LAB BLOOD ORDERAB LES Final Result [facility] [address] [place] [phone] * POCT Glucose (08/22/2025 9:39 AM EST) Glucose Blood, POC 139 60 - 200 mg/dL QC Media Lot # [id number] Lot# Expiration Date [id number] Comment:random Blood Capillary blood specimen / Unknown 08/22/2025 9:39 AM EST Иван Mackey MD POINT OF CARE TEST ENTER/ED IT ORDERABLES Final Result * (ABNORMAL) POCT Hgb A1c (08/22/2025 9:38 AM EST) Hemoglobin A1C 6.5(A) 4.0 - 5.7 % QC Media Lot # [id number] Lot# Expiration Date [id number] Blood 08/22/2025 9:38 AM EST Result [facility] Иван Mackey MD POINT OF CARE TEST ENTER/ED IT ORDERABLES Final Result * (ABNORMAL) POCT LEANDRA-14 Urine Drug Screen (08/07/2025 10:22 AM EST) THC Positive(A) Negative Cocaine Screen, Urine Negative [...] AM EST . Internal Pass Control Lot# [id number] Exp: 06-25-26 Result [facility] Иван Mackey MD POINT OF CARE TEST ENTER/ED IT ORDERABLES Final Result * Albumin/Creatinine Ratio, Random Urine (07/03/2025 10:44 AM EDT) Urine (Urine, Random) Result [facility] Historical Provider LAB URINE ORDERABLES Janie l Result * Hm Diabetes Eye Exam (05/30/2025 3:57 PM EDT) Historical Provider HEALTH MAINTENANCE Final Result * (ABNORMAL) Lipid Panel, Standard (05/14/2025 9:49 AM EDT) Triglycerides 189(H) <150 mg/dL [facility] Comment:Desirable Triglyceri de: less than 150 mg/dLBorderline High Triglyceride 150-199 mg/dLHigh Triglyceride: 200-499 mg/dLVery High Triglyceride: greater than or equal to 5OO mg/dL Cholesterol 137 <200 mg/dL [facility] Comment:Desirable Cholestero l: less than 200 mg/dLBorderline High Cholesterol: 200-239 mg/dLHigh Cholesterol: greater than 239 mg/dL LDL Cholesterol Calculated 65 <100 mg/dL [facility] Comment:Desirable LDL: less than 100 mg/dLNear Optimal/Above Optimal LDL: 110- 129 mg/dLBorderline High LDL: 130-159 mg/dLHigh LDL: 160-189 mg/dLVery High LDL: greater than or equal to 190 mg/dL HDL Cholesterol 35(L) >40 mg/dL [facility] Comment:Desirable HDL: great er than 40 mg/dL Note: This HDL assay may give artificially low results in patients with liver disease. Blood Venous blood specimen / Unknown 05/14/2025 9:49 AM EDT 05/14/2025 1:58 PM EDT us Иван Mackey MD LAB BLOOD ORDERABLES Final Result [facility] [address] [place] [phone] * (ABNORMAL) Cologuard?? colon cancer screening (02/14/2024 7:20 AM EDT) Cologuard Result Positive( A) Negative 02/18/2024 12:47 AM EDT [employer] (CLIA #:[id number]) Comment: POSITIVE TEST RESULT. A positive Cologuard [...] screened with both Cologuard and colonoscopy. (Terrance Gardner. et al, N Engl J Med 2014;370(14):1813-5446.) Cologuard may produce a false negative or false positive result (no colorectal cancer or precancerous polyp present at colonoscopy follow up). A negative Cologuard test result does not guarantee the absence of CRC or advanced adenoma (pre-cancer). The current Cologuard screening interval is every 3 years. ([place] Cancer Society and U.S. Multi-Society Task Force). Cologuard performance data in a 10,000 patient pivotal study using colonoscopy as the reference method can be accessed at the following location: www.[employer]Steppe/results. Additional description of the Cologuard test process, warnings and precautions can be found at www.Ziptrrd.com. Stool specimen (specimen) 02/14/2024 7:20 AM EDT 02/15/2024 2:42 PM EDT us Иван Mackey MD LAB MOLECULAR DIAGNOSTICS O RDERABLES Final Result [employer] (CLIA #:[id number]) [place] [address], [place] [phone] * Hepatitis C Antibody with Reflex to HCV, RNA, Quantitative, Real-Time PCR (01/24/2024 10:34 AM EDT) Hepatitis C Antibody Nonreactive Nonreactive [facility] Comment:Antibodies to HCV no t detected; does not exclude early acuteHCV infection. Blood Venous blood specimen / Unknown 01/24/2024 10:34 AM EDT 01/24/2024 2:13 PM EDT us Иван Mackey MD LAB BLOOD ORDERABLES Final Result [facility] [address] [place] [phone] from Last 3 Months or Most [...] neuropathy 09/05/2025 Patient has diabetic neuropathy 09/05/2025 Insurance [facility] MEDICARE ADVANTAGE HMO Care Teams Interior Assemblies Developer Prover Relationship Specialty Start Date End Date Иван Mackey MD [address] [place] [phone] PCP - General Internal Medicine 04/18/15
--- OUTSIDE RECORDS SUMMARY | 2025-09-16 08:45 | XMS_ITS | Encounter Summary ---
Author Organization [employer] Address [address] [facility] 7t [place] [address] Care Team Providers Care Lease Operator Name Role Phone Иван Mackey MD Primary Care Provider [phone] Encounter Details Date Type Department Care Team ([facility] st Contact Info) Description 06/06/2025 Orders Only [facility] [address] [place] [address] Provider, MD Carina Social History Tobacco Use [...] [facility] MED & PEDS [address] [place] [address] Michaela Parrish, LUBA 505 [place] [address] documented as of this encounter Goals Goal [...] on filedocumented in this encounter Care Teams Lease Operator Relationship Specialty Start Date End Date Иван Mackey MD [address] [place] [address] PCP - General Internal Medicine 04/18/15 documented as of this encounter
--- OUTSIDE RECORDS SUMMARY | 2025-09-16 08:45 | XMS_ITS | Encounter Summary ---
Author Organization [employer] Address [address] [facility] 7 [place] [address] Care Team Providers Care Clinical Trials Assistant Name Role Phone Иван Mackey MD Primary Care Provider [phone] Encounter Details Date Type Department Care Team ([facility] st Contact Info) Description 11/14/2023 Orders Only [facility] CHC MED & PEDS [address] [place], [place] [phone] Иван Mackey MD 505 [place] [address] Primary hypertension (Primary Dx); Chronic gastritis without [...] 9:30 AM EST Clinical Support [facility] MED & PEDS [address] [place] [address] Michaela Parrish, RN 505 [place] [address] documented as of this encounter Goals Goal [...] type documented in this encounter Care Teams Clinical Trials Assistant Relationship Specialty Start Date End Date Иван Mackey MD 505 [place] [address] PCP - General Internal Medicine 04/18/15 documented as of this encounter
--- OUTSIDE RECORDS SUMMARY | 2025-09-16 08:45 | XMS_ITS | Encounter Summary ---
Author Organization [employer] Address [address] [facility] 7 [place] [address] Care Team Providers Care Pipe Threading Machine Operator Name Role Phone Иван Mackey MD Primary Care Provider [phone] Reason for Visit * Reason Comments Med Refill Encounter Details Date Type Department Care Team ([facility] st Contact Info) Description 02/16/2024 Refill [facility] CHC MED & PEDS [address] [place], [place] [phone] Иван Mackey MD 505 [place] [address] Chronic pain syndrome Social History Tobacco Use [...] [facility] MED & PEDS [address] [place] [address] Michaela Parrish, RN [address] [place] [address] documented as of this encounter Goals Goal [...] syndrome documented in this encounter Care Teams Pipe Threading Machine Operator Relationship Specialty Start Date End Date Иван Mackey MD 505 [place] [address] PCP - General Internal Medicine 04/18/15 documented as of this encounter
--- OUTSIDE RECORDS SUMMARY | 2025-09-16 08:45 | XMS_ITS | Encounter Summary ---
Author Organization [employer] Address [address] [facility] 7 [place] [address] Care Team Providers Care Belt Dresser Name Role Phone Иван Mackey MD Primary Care Provider [phone] Reason for Visit * Reason Onset Date Comments Appointment Request 07/20/2023 Encounter Details Date Type Department Care Team ([facility] st Contact Info) Description 07/20/2023 Telephone [facility] MEDICINE [address] [place] [address] Иван Mackey MD [address] [place] [address] Appointment Request Social History Tobacco Use Types [...] for a open heart surgery. Please call [phone] documented in this encounter Plan of Treatment Upcoming Encounters Date Type Department Care Team (Late st Contact Info) Description 10/03/2025 9:30 AM EST Clinical Support [facility] MED & PEDS [address] [place] [address] Michaela Parrish RN 505 [place] [address] documented as of this encounter Goals Goal [...] on filedocumented in this encounter Care Teams Belt Dresser Relationship Specialty Start Date End Date Иван Mackey MD [address] [place] [address] PCP - General Internal Medicine 04/18/15 documented as of this encounter
--- OUTSIDE RECORDS SUMMARY | 2025-09-16 08:45 | XMS_ITS | Encounter Summary ---
Author Organization [employer] Address [address] [place] [address] 7 [place] [address] Care Team Providers Care Broadcast Maintenance Engineer Name Role Phone Иван Mackey MD Primary Care Provider [phone] Encounter Details Date Type Department Care Team ([facility] Contact Info) Description 02/16/2023 [facility] Information Management [address] [place] [address] Иван Mackey MD 505 [place], [place] [phone] Social History Tobacco Use Types Packs/Day Years [...] Description 10/03/2025 9:30 AM EST Clinical Support [facility] CHC MED & PEDS 505 [place], [place] [phone] Michaela Parrish RN 505 [place], [place] [phone] documented as of this encounter Goals Goal [...] on filedocumented in this encounter Care Teams Broadcast Maintenance Engineer Relationship Specialty Start Date End Date Иван Mackey MD [address] [place] [address] PCP - General Internal Medicine 04/18/15 documented as of this encounter
--- OUTSIDE RECORDS SUMMARY | 2025-09-16 08:45 | XMS_ITS | Clinical Summary ---
Author Organization [facility] Address [address] [place] [address] Care Team Providers Care Aluminum Fabrication Supervisor Name Role Phone Unavailable Primary Care Provider Unavailabl e Social History Tobacco Use Types Packs/Day Years Used Date Smoking Tobacco: Never Assessed Sex and Gender Information Value Date Recorded Sex Assigned at Not on file Legal Sex Male 6:21 PM EST Gender Identity Not on file Sexual Orientation Not on file Last Filed Vital Signs Vital Sign Reading Time Taken Comments Blood Pressure 94/56 08/28/2025 6:49 AM EST Pulse 98 08/28/2025 6:49 AM EST Temperature 37.9 C (100.3 F) 08/28/2025 6:49 AM EST Respiratory Rate 21 08/28/2025 6:49 AM EST Oxygen Saturation 94% 08/28/2025 6:49 AM EST Inhaled Oxygen Concentration - - Weight - - Height - - Body Mass Index - - Plan of Treatment Health Maintenance Due Date Last Done Comments Advance Care Planning 1950 Hepatitis C Virus Screening 1950 DTaP/Tdap/Td Vaccines (1 - Tdap) 1969 Pneumococcal Vaccines 50+ (1 of 1 - PCV) 02/28/2000 Zoster (Shingles) Vaccine (1 of 2) 02/28/2000 RSV Vaccine 50 years and old er and Patients (1 - 1-dose 75+ series) 2025 COVID-19 Vaccine ( - 2024-2 6 season) 2025 Hepatitis B Vaccines Aged Out No long er eligible based on patient's age to complete this topic
--- OUTSIDE RECORDS SUMMARY | 2025-09-16 08:45 | XMS_ITS | Encounter Summary ---
Author Organization [employer] Address [address] [facility] 7 [place] [address] Care Team Providers Care Farmworker Fruit Name Role Phone Иван Mackey MD Primary Care Provider [phone] Reason for Visit * Reason Comments Med Refill Encounter Details Date Type Department Care Team ([facility] st Contact Info) Description 01/16/2024 Refill [facility] CHC MED & PEDS [address] [place], [place] [phone] Иван Mackey MD [address] [place] [address] Chronic pain syndrome Social History Tobacco Use [...] [facility] MED & PEDS [address] [place] [address] Michaela Parrish, LUBA [address] [place] [address] documented as of this encounter Goals Goal [...] syndrome documented in this encounter Care Teams Farmworker Fruit Relationship Specialty Start Date End Date Иван Mackey MD [address] [place] [address] PCP - General Internal Medicine 04/18/15 documented as of this encounter
--- OUTSIDE RECORDS SUMMARY | 2025-09-16 08:45 | XMS_ITS | Encounter Summary ---
Author Organization [employer] Address [address] [facility] 7t [place] [address] Care Team Providers Care Analytics Specialist Name Role Phone Иван Mackey MD Primary Care Provider [phone] Encounter Details Date Type Department Care Team (Late st Contact Info) Description 05/13/2025 Orders Only [facility] CHC MED & PEDS [address] [place], [place] [phone] Lamar Khan RN [address] [place] [address] Social History Tobacco Use Types Packs/Day Years [...] 9:30 AM EST Clinical Support [facility] MED & PEDS [address] [place] [address] Michaela Parrish, LUBA [address] [place] [address] documented as of this encounter Goals Goal [...] on filedocumented in this encounter Care Teams Analytics Specialist Relationship Specialty Start Date End Date Иван Mackey MD [address] [place] [address] PCP - General Internal Medicine 04/18/15 documented as of this encounter
--- OUTSIDE RECORDS SUMMARY | 2025-09-16 08:45 | XMS_ITS | Encounter Summary ---
Author Organization [employer] Address [address] [facility] 7t [place] [address] Care Team Providers Care Towel Sewer Name Role Phone Иван Mackey MD Primary Care Provider [phone] Encounter Details Date Type Department Care Team (Late st Contact Info) Description 12/27/2024 Orders Only [facility] CHC MED & PEDS [address] [place], [place] [phone] ProviderCarina MD Social History Tobacco Use Types [...] 9:30 AM EST Clinical Support [facility] MED & PEDS [address] [place] [address] Michaela Parrish, RN 505 [place] [address] documented as of this encounter Goals Goal Patient Goal Type Associated Problems Recent Progress Patient-Stated? Author Blood Pressure < 140/90 Blood Pressure 114/66(2024 2:43 PM EST) No DellogonoBrian, PharmD Patient will adhere to medication regimen General No Dellogono, Brian, PharmD Hemoglobin A1c < 7 Result Component 6.5( 9:38 AM EST) No DellogBrian montes, PharmD documented as of this encounter Procedures Procedure Name Priority Date/Time Associated Diagnosis Comments DIABETES EYE EXAM Routine 11/23/2024 11:44 AM EST documented in this encounter Results * Hm Diabetes Eye Exam (11/23/2024 11:44 AM EST) us Historical Provider HEALTH MAINTENANCE Final Result documented in this encounter Visit Diagnoses Not on filedocumented in this encounter Care Teams Towel Sewer Relationship Specialty Start Date End Date Иван Mackey MD [address] [place] [address] PCP - General Internal Medicine 04/18/15 documented as of this encounter
--- OUTSIDE RECORDS SUMMARY | 2025-09-16 08:45 | XMS_ITS | Encounter Summary ---
Author Organization [employer] Address [address] [facility] 7t [place] [address] Care Team Providers Care Assistant Head Cashier Name Role Phone Иван Mackey MD Primary Care Provider [phone] Encounter Details Date Type Department Care Team ([facility] st Contact Info) Description 09/11/2025 Telephone [facility] CHC MED & PEDS [address] [place], [place] [phone] Иван Mackey MD [address] [place] [address] Social History Tobacco Use Types Packs/Day Years Used Date Smoking Tobacco: Former Cigarettes 2 1 - 1989 Smokeless Tobacco: Never Comments:Sober since 1981 Housing Stability Answer Date Recorded What is your housing situation today? I have ashlee rodrgiuez 01/29/[address] you li [...] encounter Miscellaneous Notes * Telephone Encounter - Sharath Tomas - 09/11/2025 11:08 AM EST Tc from pt inquiring if he needs to stop taking the atorvastatin due to his levels. Contact pt at [phone] * Telephone Encounter - Tamela Moise RN - 09/11/2025 10:53 AM EST I agree w/ resuming Aspirin 81 mg once a day. The new script was sent to pt's pharmacy. On the other hand I would like Mr Eran Mathew's liver enzymes to go back to normal prior to resuming Atorvastatin. Last ALT done on 08/31/25 was 104 ( more than 2 times above normal limit). Please advise Mr Eran Mathew to return in 2 weeks to recheck his liver enzymes and we will resume the medication ifthey are normal. Called pt regarding requests, spoke to pt. Advised to pt that the ASA has been sent to the pharmacy. Also, that he has blood work to repeat and the atorvastatin will be held for now. Pt would like usto request to the pharmacy that the ASA be added to his med box. * Telephone Encounter - Anupama Rodríguez RN - 09/11/2025 9:54 AM EST Pt walked into office requesting to review meds with nurse. Pt states that he is working with his GI and general surgery providers with [facility] to schedule cholecystectomy. Surgeon advised that pt can take ASA daily up until 2 days prior to procedure that has yet to be scheduled. Pt requesting ASA prescription for his med box. Pt is also requesting atorvastatin to be restarted. Pt states that a long time ago, not this year per pt, had taken a medication that caused muscle cramps. Advised that statin medications can cause that side effect and to avoid worsening medication may have been discontinued. Advised will review and have provider review as well. Advised will contact pt is atorvastatin cannot be placed in med box. Reviewing Admission note from [facility], pt reported taking atorvastatin 80 mg daily to ER, and on day ofadmission allergy of atorvastatin was added to med list with reaction and severity listed as unknown. documented in this encounter Plan of Treatment Upcoming Encounters Date Type Department Care Team (Late st Contact Info) Description 10/03/2025 9:30 AM EST Clinical Support [facility] MED & PEDS [address] [place] [address] Michaela Parrish RN [address] [place] [address] documented as of this encounter Goals Goal [...] documented as of this encounter Care Teams Assistant Head Cashier Relationship Specialty Start Date End Date Иван Mackey MD [address] [place] [address] PCP - General Internal Medicine 04/18/15 documented as of this encounter
[2025-09-16 15:18] LABS: Alanine Aminotransferase 27 U/L (0-40); Albumin Level 4.3 g/dL (3.5-5.0); Alkaline Phosphatase 57 U/L (39-117); Aspartate Amino Transferase 31 U/L (5-37); Total Protein 7.2 g/dL (6.5-8.0)
== END 2025-09-16 08:43 ==
LOC: HO.CHCLDS 08:42
PROVIDERS: Visit Provider Internal Medicine
DX: K80.50 Calculus of bile duct without cholangitis or cholecystitis without obstruction (principal)
CPT/HCPCS: 36415; 80076

== ENCOUNTER 2025-09-17 08:39 | Outpatient (AMB) | payer MEDICARE, SELFPAY ==
--- OUTSIDE RECORDS SUMMARY | 2025-08-29 09:40 | XMS_ITS ---
Author Organization [facility] Address [address] [place] [id number] Care Team Providers Care Teacher Of The Sight Impaired Name Role Phone Narendra Phan, Иван Primary Care Provider Un available Fernando Anderson Unavailable [phone] REASON FOR VISIT cbd stone Encounters Encounter Location Date Provider Diagnosis [facility] Inpatient [address], [place] [id number] 08/29/2025 Fernando Anderson Plan Of Treatment No Information Progress Notes * RANDOLPHRICKY VELAZQUEZDOB:1950 (75 yo M)Acc No.[id number]:08/29/2025 Progress Notes Patient: RICKY LEYVA Provider: Escobar Anderson MD :1950 A ge:75 Y S ex:Male Date:08/29/2025 Address:[address] [place], [place] [id number] Pcp:Иван Mackey M.D. Subjective: * Chief Complaints: * C bd stone * The named appointment provid er may or may not be the originator of this progress note, and it is not deemed complete until electronically signed by the appointment provider. Sign off status: Pending * Provider: Escobar Anderson MD Date: 10/30/2024 Generated for Aggie hamilton/Jesica/eTransmitting on: 10:26 AM EST
[2025-09-17 08:42] VITALS: BP 110/61; PULSE 94; BMI 28.6
--- NOTE | 2025-09-17 08:42 | MHC.OFFVIS ---
Vital Signs 09/17/25 08:42 Height 5 ft 10 in Weight 199 lb BMI 28.6 BP 110/61 Blood Pressure Location Rt brachial Position Sitting Pulse 94 Intake Visit Reasons: gallbladder Intake Note: Patient here to follow up recent hospitalization for gallstones. Patient c/o: discomfort. Reports normal BM. Imaging: ERCP in OR~ 08-29-2025 Glass Cleaning Machine Tender Required: No Accompanied by: spouse Ángela Allergies atorvastatin (Lipitor) Allergy (Unknown, Verified 09/17/25 08:48) Unknown HPI HPI gallbladder: Details: Patient presenting to our office for evaluation for surgery following admission for biliary obstruction, ascending cholangitis, sepsis. He had ERCP with sphincterotomy and was ultimately discharged and instructed to folow up with us as an outpatient. He has no current complaints, has been trying to follow low fat diet. denies current pain in the abdomen. He does has a significant medical history including CAD, s/p CABG 4, T2DM, COPD, HTN, AICD. Patient initially had pacemaker but ended up having to have an AICD placed for what seems to be bradycardia, heart block. He follows Dr Monte at [facility] for cardiology. He is hoping to proceed with cholecystectomy, he does not want to experience an episode similar to what happened earlier this month [facility] Medical History (Updated 09/17/25 @ 09:24 by Mukund Santa MD) Gallstones Diabetes mellitus, type 2 COPD (chronic obstructive pulmonary disease) Hypertension Coronary artery disease Hypercholesteremia Surgical History H/O coronary artery bypass surgery AICD (automatic cardioverter/defibrillator) present Social History Household Members: Spouse and Children Household Members Other:: 4 Housing: House Do you presently have visiting nurse or other home services: No Alcohol intake: never Patient Tobacco Use Status: Former Tobacco user e-Cigarette/Vaping Use: Never Used Physical Exam Vital Signs: Last Vital Signs Pulse 94 09/17/25 08:42 BP 110/61 09/17/25 08:42 BMI result Body Mass Index 28.6 Const General: comfortable and no acute distress Nutritional Appearance: overweight Orientation/consciousness: patient oriented x3 Resp Effort & Inspection: normal respiratory effort and able to speak in complete sentences GI Inspection: No distended Palpation (GI): Soft to palpation and nontender Neuro General: patient oriented x3 Assessment & Plan Assessment & Plan (1) Gallstones: Code(s): K80.20 - Calculus of gallbladder without cholecystitis without obstruction Category: Medical Plan: 75-year-old male who was admitted to the hospital last 08/28/2025 because of ascending cholangitis from gallstones He had an ERCP done at that time He was discharged much improved He is here to schedule for laparoscopic cholecystectomy I had a long discussion with him about the technique of laparoscopic cholecystectomy and possible open cholecystectomy I explained the risks including but not limited to bleeding, infections, injury to other organs including the liver, the bile ducts, intestines, bile leak, retained stones, inherent risks of anesthesia as well as the benefits and alternatives I explained to him what to expect postoperatively He wants to proceed He does have a significant cardiac history with 4 vessel CABG in 2022, pacemaker and AICD placement prior to that He denies exertional dyspnea currently He continues to follow with his lat[employer] american studies professor in [place] He understands that his perioperative risks are higher than average in view of his significant cardiac history He will need to be seen by the latin american studies professor prior to laparoscopic cholecystectomy His was with him during the visit The patient was seen and examined with MONSTER Ndiaye 75-year-old male with a history of hypertension, type 2 diabetes, COPD, CAD s/p CABG 4, AICD, cholelithiasis, presenting to the office following admission for biliary obstruction s/p ERCP with sphincterotomy where patient was found to be septic, diagnosed with a ascending cholangitis. We had seen him while inpatient and recommended that he follow-up as an outpatient to discuss surgical removal of the gallbladder. He feels well now does not have any complaints or pain. His history is as per the HPI. I asked Dr. Santa to see this patient as well given his multiple medical comorbidities. Please see above. We will plan for surgical intervention, a surgical booking slip has been created and our team will reach out to him regarding scheduling, he understands that he will likely need cardiology clearance prior to procedure. Abdomen is soft and benign Orders: Referrals General Surgery Procedure Notification K80.20 - Calculus of gallbladder without cholecystitis without obstruction Medications: Discontinued cephalexin Discontinued Reason: Patient Completed Course 500 mg PO BID 10 days 20 caps 0RF Coding Level of Care Code Est Pt Level 4 (30817) Diagnoses Gallstones K80.20
--- OUTSIDE RECORDS SUMMARY | 2025-09-17 10:27 | XMS_ITS | Encounter Summary ---
Author Organization [email or web address] Address [address] [facility] [address] [place] [address] Care Team Providers Care Food Product Inspector Name Role Phone Иван Mackey MD Primary Care Provider [phone] Encounter Details Date Type Department Care Team ([facility] st Contact Info) Description 07/08/2025 Orders Only [facility] PEDS [address] [place], [place] [phone] ProviderCarina MD Social History Tobacco Use Types [...] 10/03/2025 9:30 AM EST Clinical Support [facility] MED & PEDS [address] [place] [address] Michaela Parrish RN [address] [place] [address] documented as of this encounter Goals Goal [...] on filedocumented in this encounter Care Teams Food Product Inspector Relationship Specialty Start Date End Date Иван Mackey MD [address] [place] [address] PCP - General Internal Medicine 04/18/15 documented as of this encounter
--- OUTSIDE RECORDS SUMMARY | 2025-09-17 10:27 | XMS_ITS | Encounter Summary ---
Author Organization [employer] Address [address] [facility] [address] [place] [address] Care Team Providers Care Radiology Rn Name Role Phone Иван Mackey MD Primary Care Provider [phone] Encounter Details Date Type Department Care Team (Late st Contact Info) Description 03/29/2024 Orders Only [facility] MED & PEDS [address] [place], [place] [phone] Иван Mackey MD [address] [place] [address] Type 2 diabetes mellitus with hyperglycemia, without long-term current use of insulin ([facility]) (Primary Dx) Social History Tobacco [...] [facility] [address] [place] [address] Michaela Parrish, LUBA [address] [place] [address] documented as of this encounter Goals Goal [...] Primary documented in this encounter Care Teams Radiology Rn Relationship Specialty Start Date End Date вИан Mackey MD [address] [place] [address] PCP - General Internal Medicine 04/18/15 documented as of this encounter
--- OUTSIDE RECORDS SUMMARY | 2025-09-17 10:27 | XMS_ITS | Encounter Summary ---
Author Organization [employer] Address [address] [facility] [address] [place] [address] Care Team Providers Care Thread Milling Machine Set Up Operator Name Role Phone Иван Mackey MD Primary Care Provider [phone] Reason for Visit * Reason Onset Date Comments Hospital Follow-up 09/02/2025 Encounter Details Date Type Department Care Team ([facility] st Contact Info) Description 09/02/2025 Telephone [facility] MED & PEDS [address] [place], [place] [phone] Иван Mackey MD [address] [place] [address] Hospital Follow-up Social History Tobacco Use Types [...] from pt requesting a HDF appt. Hospital: [facility] Date of admission: 08/26 Discharge date: 08/31 Diagnosed: gallbladder has to come out *Send message to [facility] Clinical Care Coordinators Contact pt at [phone] documented in this encounter Plan of Treatment Upcoming Encounters Date Type Department Care Team (Late st Contact Info) Description 10/03/2025 9:30 AM EST Clinical Support [facility] MED [facility] PEDS [address] [place] [address] Michaela Parrish, RN [address] [place] [address] documented as of this encounter Goals Goal [...] documented as of this encounter Care Teams Thread Milling Machine Set Up Operator Relationship Specialty Start Date End Date Иван Mackey MD [address] [place] [id number] PCP - General Internal Medicine 04/18/15 documented as of this encounter
--- OUTSIDE RECORDS SUMMARY | 2025-09-17 10:27 | XMS_ITS | Clinical Summary ---
Author Organization [facility] Address [address] [place] [address] Care Team Providers Care Furnace Puncher Name Role Phone Unavailable Primary Care Provider [...]
--- OUTSIDE RECORDS SUMMARY | 2025-09-17 10:27 | XMS_ITS | Encounter Summary ---
Author Organization [employer] Address [address] [place] [address] [address] [place] [address] Care Team Providers Care Immigration Specialist Name Role Phone Иван Mackey MD Primary Care Provider [phone] Encounter Details Date Type Department Care Team (Late Contact Info) Description 02/16/2023 [facility] [employer] [address] [place] [address] Иван Mackey MD [address] [place], [place] [phone] Social History Tobacco Use Types Packs/Day Years [...] Description 10/03/2025 9:30 AM EST Clinical Support [facility] MED & PEDS [address] [place], [place] [phone] Michaela Parrish RN [address] [place], [place] [phone] documented as of this encounter Goals Goal [...] on filedocumented in this encounter Care Teams Immigration Specialist Relationship Specialty Start Date End Date Иван Mackey MD [address] [place] [id number] PCP - General Internal Medicine 04/18/15 documented as of this encounter
--- OUTSIDE RECORDS SUMMARY | 2025-09-17 10:27 | XMS_ITS | Clinical Summary ---
Author Organization [employer] Address [address] [place] [address] 7t [place] [address] Care Team Providers Care Biochemistry Technologist Name Role Phone Иван Mackey MD Primary Care Provider [phone] Allergies Active Allergy Reactions Criticality Noted Date [...] hyperglycemia, without long-term current use of insulin ([facility]) To use once a day 1 kit Active glucose blood (Accu-Chek Zakia Plus) test stripIndications: Type 2 diabetes mellitus with hyperglycemia, without long-term current use of insulin ([facility]) To check the blood sugar 2 times [...] 3 5 9:00 AM EST Active Tiotropium Epping (Spiriva HandiHaler) [address] 18 mcg into inhaler and inhale Once per day. 30 capsule 11 5 9:00 AM EST Active lidocaine 2 % gel Insert into the urethra if needed for mild pain. 20 mL Active lidocaine-priloca ine (Emla) 2.5-2.5 % creamIndications: Phlebitis Apply topically 1 (one) time for 1 dose. 30 g 1 5 9:00 AM EST 025 2025 Active traMADol (Ultram) 50 MG tabletIndications :Chronic pain syndrome Take 1 tablet (50 mg) by mouth every 12 (twelve) hours if needed for severe pain. 56 tablet 5 9:04 AM EST Active aspirin 81 MG EC tabletIndications :Primary hypertension Take 1 tablet (81 mg) by mouth Once per day. 90 tablet 3 5 9:04 AM EST 025 2025 Active atorvastatin (Lipitor) 80 MG tabletIndications :Hypercholesterol emia Take 1 tablet (80 mg) by mouth Once per day. 30 tablet 11 025 2025 Active Spiriva HandiHaler 18 MCG [...] MORNING AND EVENING 180 tablet 3 025 2024 Discontinued(M ed list cleanup (will not trigger notification to Pharmacy)) Blood Glucose Monitoring Suppl (Accu-Chek Zakia Plus) w/Device kitIndications:Ty pe 2 diabetes mellitus with hyperglycemia, without long-term current use of insulin (HCC) To check the FS 2 times a [...] pain. 56 tablet 5 9:11 AM EST 025 2024 Discontinued(R eorder (will not trigger notification to Pharmacy)) cephalexin (Keflex) 500 MG capsule Take 1 capsule by mouth 2 times daily. 025 12/23/ 2025 metroNIDAZOLE (Flagyl) 500 MG tablet Take 1 tablet by mouth 3 times daily. 025 2024 Active Problems Problem Noted Date Diagnosed Date Long-term current use of opiate analgesic 2024 Atrial fibrillation (CMS/HCC) 07/21/2023 Left ventricular hypertrophy 12/29/2021 Insomnia 08/07/2020 Chronic pain syndrome 07/13/2017 Erectile dysfunction 12/15/2016 Hypercholesterolemia 12/15/2016 Obesity 12/15/2016 Osteoarthritis of knee 12/15/2016 Diabetes mellitus 05/08/2015 Hypertensive disorder 05/08/2015 Encounters Date Type Department Care Team Description 09/11/2025 Orders Only [facility] [address] [place] [address] Иван Mackey MD Primary hypertension (Primary Dx); Choledocholithiasis; Hypercholesterolemia 09/11/2025 Telephone [facility] [address] [place] [address] Иван Mackey MD 09/11/2025 Refill [facility] [address] [place] [address] Иван Mackey MD Chronic pain syndrome 09/05/2025 2:45 PM EST Office Visit [facility] [address] [place] [address] Иван Mackey MD Diabetic polyneuropathy associated with type 2 diabetes mellitus (HCC) (Primary Dx); Choledocholithiasis; Phlebitis 09/05/2025 Travel 09/02/2025 Patient Outreach [facility] [address] [place] [address] Иван Mackey MD Transition Of Care (Tcm) (HDF- scheduled and SDOH screening completed on 01/29/2025) 09/02/2025 Telephone [facility] [address] [place] [address] Иван Mackey MD Hospital Follow-up 08/28/2025 Orders Only [facility] External Provider, [facility] 08/22/2025 9:15 AM EST Office Visit [facility] [address] [place] [address] Иван Mackey MD Primary hypertension (Primary Dx); Hypercholesterolemia; Type 2 diabetes mellitus with hyperglycemia, without long-term current use of insulin (HCC); Encounter for immunization 08/22/2025 Travel 08/13/2025 Refill [facility] [address] [place] [address] Michaela Parrish RN Chronic pain syndrome 08/13/[address] [facility] [address] [place] [phone] Tamela Moise RN Error (VOID this visit) 08/13/2025 Patient Outreach [facility] [address] [place] [phone] Иван Mackey MD Pre-visit Planning (SDOH screening was completed on 01/29/2025) 08/07/2025 9:30 AM EST Clinical Support [facility] [address] [place] [address] Michaela Parrish RN Back pain, unspecified back location, unspecified back pain laterality, unspecified chronicity (Primary Dx) 08/07/2025 Travel 07/31/[address] [facility] [address] [place] [address] Иван Mackey MD 07/15/2025 Refill [facility] [address] [place] [address] Michaela Parrish RN Chronic pain syndrome 07/15/2025 Telephone [facility] [address] [place] [address] Иван Mackey MD Med Refill 07/08/2025 Results Follow-Up [facility] [address] [place] [address] Иван Mackey MD Albumin/Creatinine Ratio, Random Urine 07/08/2025 Orders Only [facility] [address] [place] [address] Carina Amos MD from Last 3 Months Immunizations Immunization Administration Dates Next Due Hep B, Unspecified 06/04/2011 Hep B, adult 02/07/2025,11/18/2011 Influenza High-dose Quadriva lent Preservative Free 07/15/2023,06/24/2022,06/24/2021,07/02 Influenza Whole 06/04/2011, 0,06/04/2009,08/09,08/16/2006 Influenza injectable quadriv alent IIV4 with preservative 06/14/2018,06/20/2017,08/23/2016,06/26 Influenza, High Dose Seasona l, Preservative Free 08/22/2025,06/14/2024,06/18/2019 Influenza, IIV3, injectable 06/12/2014,0 05/31/2013,05/23/2012,06/12 Novel [id number], all formulations 09/09/2009 Pfizer Covid-19 Vaccine 12+ [...] Description 10/03/2025 9:30 AM EST Clinical Support [facility] [address] [place] [address] Michaela Parrish, LUBA [address] [place] [address] Health Maintenance Due Date Last Done Comments [...] Procedure Name Priority Date/Time Associated Diagnosis Comments HEPATIC FUNCTION PANEL Routine 09/16/2025 8:43 AM EST Choledocholithiasis FL GUIDANCE IN OR Routine 08/29/2025 4:1 1 PM EST US ABDOMEN LIMITED Routine 08/28/2025 11 :39 AM EST PROTHROMBIN TIME-INR Routine 08/28/2025 9:11 AM EST LACTIC ACID (NON ORDERABLE) Routine 08/28/2025 8:[address] ABDOMEN PELVIS W CONTRAST Routine 08/28/2025 6:19 AM EST LACTIC ACID LAB USE ONLY Routine 08/28/2025 5:18 AM EST POCT GLUCOSE (CPT-28526) Routine 08/22/2025 9:39 AM EST Type 2 [...] Recently Relevant to Health Maintenance Results * Hepatic Function Panel (09/16/2025 8:43 AM EST) Bilirubin, Total 0.8 0.0 - 1.0 mg/dL [facility] Bilirubin, Direct 0.3 0.0 - 0.5 mg/dL [facility] Aspartate Amino Transferase 31 5 - 37 U/L [facility] Alanine Aminotransferase 27 0 - 40 U/L [facility] Total Protein 7.2 6.5 - 8.0 g/dL [facility] Albumin Level 4.3 3.5 - 5.0 g/dL [facility] Alkaline Phosphatase 57 39 - 117 U/L [facility] Blood Venous blood specimen / Unknown 09/16/2025 8:43 AM EST 09/16/2025 2:52 PM EST Иван Mackey MD LAB BLOOD ORDERABLES Final Result Performing Organization Address City/State/[facility] Co de Phone Number [facility] [address] [place] [address] [phone] * FL Guidance in OR (08/29/2025 4:11 PM EST) Anatomical Region Laterality Modality X-Ray Angiograph y 08/29/2025 4:11 PM EST Narrative 08/30/2025 7:58 AM EST [place] [address] Fluoroscopy Report Signed Patient: Eran Mathew MR#: [id number] 65 : 1950 Acct:[id number] Age/Sex: 75 / M ADM Date: 08/28/25 Loc: [facility] 445-[address]: Connie Gamino MD Ordering Physician: Fernando Anderson MD Date of Service: 08/29/25 Procedure(s): FL guidance in OR Accession Number(s): [id number] cc: Иван Mackey MD; Fernando Anderson MD [...] 08/30/25 0755 DD/ 1611 TD/TT: 08/29/25 1655 Gunner'S Mate M: CARMELLA Procedure Note Donotuseinterpreter, Image - 08/30/2025 [place] [address] Fluoroscopy Report Signed Patient: Eran Mathew DMR#: [id number] 65 : 1950Acct:[id number] Age/Sex: 75 / MADM Date: 08/28/25 Loc: [facility] 445-[address]: Connie Gamino MD Ordering Physician: Fernando Anderson MD Date of Service: 08/29/25 Procedure(s): FL guidance in OR Accession Number(s): [id number] cc: Иван Mackey MD; Fernando Anderson MD [...] Arabella García MD 08/30/2025 07:55 AM EST RP Dictated By: Arabella García MD Signed By: <Electronically signed by Arabella García MD in OV> 08/30/25 0755 DD/ 1611 TD/TT: 08/29/25 1655 Gunner'S Mate M: CARMELLA us [facility] External Provider IMG IR PROCEDURES Final Result * US Abdomen Limited (08/28/2025 11:39 AM EST) Anatomical Region Laterality Modality Abdomen Ultrasound 08/28/2025 11:3 9 AM EST Narrative 08/28/2025 12:19 PM EST [place] [address] Ultrasound Report Signed Patient: Eran Mathew MR#: [id number] [birth year] : 1950 Acct:[id number] Age/Sex: 75 / M ADM Date: 08/28/25 Loc: [facility] 260-[address]: Lluvia Napier MD Ordering Physician: Lobo Sky PA-C Date of Service: 08/28/25 Procedure(s): US abdomen limited Accession Number(s): [id number] cc: Иван Mackey MD; Lobo Sky PA-C [...] by: Faustino Andersen MD 08/28/2025 12:16 PM [facility] Dictated By: Faustino Andersen MD Signed By: <Electronically signed by Faustino Andersen MD in OV> 08/28/25 1216 DD/ 1139 TD/TT: 08/28/25 1152 Gunner'S Mate M: Procedure Note Donotuseinterpreter, Image - 08/28/2025 [place] [address] Ultrasound Report Signed Patient: Eran Mathew DMR#: [id number] [birth year] : 1950Acct:[id number] Age/Sex: 75 / MADM Date: 08/28/25 Loc: .ICU 260-[address]: Lluvia Napier MD Ordering Physician: Lobo Sky PA-C Date of Service: 08/28/25 Procedure(s): US abdomen limited Accession Number(s): [id number] cc: Иван Mackey MD; Lobo Sky PA-C [...] by: Faustino Andersen MD 08/28/2025 12:16 PM EST Dictated By: Faustino Andersen MD Signed By: <Electronically signed by Faustino Andersen MD in OV> 08/28/25 1216 DD/ 1139 TD/TT: 08/28/25 1152 Gunner'S Mate M: us [facility] External Provider IMG US PROCEDURES Final Result * (ABNORMAL) Prothrombin Time-INR (08/28/2025 9:11 AM EST) Prothrombin Time 15.6(H) 11.2 - 13.5 SEC [facility] INTERNATIONAL NORM RATIO 1.3(H) 0.9 - 1.1 [facility] Comment:INTERNATIONAL NORMAL IZED RATIO (INR) [...] ORDERAB LES Final Result Performing Organization Address [facility] Co de Phone Number [facility] [address] [place] [phone] * (ABNORMAL) Lactic Acid (08/28/2025 8:02 AM EST) Lactic Acid 2.6(HH) 0.5 - 2.0 mmol/L [facility] Comment:Critical value for L ACTIC Results called to and read brandony: KARYN Person calling: JOSEOSSF Date: 08/28/25 Time:08 08/28/2025 8:02 AM EST 08/28/2025 8:04 AM EST Generic External Data Provider HISTORICAL/NON OR DERABLE LABS Final Result Performing Organization Address [facility] de Phone Number [facility] [address] [place] [phone] * CT Abdomen Pelvis w/ Contrast (08/28/2025 6:19 AM EST) Anatomical Region Laterality Modality Body, Pelvis, Abdomen Computed T omography 08/28/2025 6:19 AM EST Narrative 08/28/2025 6:22 AM EST [address] [address] [address] Scan Report Signed Patient: Eran Mathew MR#: [id number] [birth year] : 1950 Acct:[id number] Age/Sex: 75 / M ADM Date: 08/28/25 Loc: HO.ED Attending Dr: Ordering Physician: Lobo Sky PA-C Date of Service: 08/28/25 Procedure(s): CT abdomen pelvis w IV con Accession Number(s): [id number] cc: Иван Mackey MD; Lobo Sky PA-C Report Number: [id number]: Total DLP = 591.00 mGy-cm Reason for [...] in OV> 08/28/25620 DD/ 8 TD/TT: 08/28/25618 Gunner'S Mate M: Procedure Note Donotuseinterpreter, Image - 08/28/[address] [place] [address] CT Scan Report Signed Patient: Eran Mathew DMR#: [id number] [birth year] : 1950Acct:[id number] Age/Sex: 75 / MADM Date: 08/28/25 Loc: HO.ED Attending Dr: Ordering Physician: Lobo Sky PA-C Date of Service: 08/28/25 Procedure(s): CT abdomen pelvis w IV con Accession Number(s): [id number] cc: Иван Mackey MD; Lobo Sky PA-C Report Number: [id number]: Total DLP = 591.00 mGy-cm Reason for [...] in OV> 08/28/25620 DD/ 8 TD/TT: 08/28/25618 Gunner'S Mate M: [facility] External Provider IMG CT PROCEDURES Final Result * (ABNORMAL) Lactic Acid (08/28/2025 5:18 AM EST) Lactic Acid 2.7(HH) 0.5 - 2.0 mmol/L [facility] Comment:Critical value for t est(s): LA Results called to and readback by: SONA Person calling: IDRISH Date: 08/28/25Time: 05:48 08/28/2025 5:18 AM EST 08/28/2025 5:18 AM EST Generic External Data Provider LAB BLOOD ORDERAB LES Final Result Performing Organization Address City/State/[facility] Co de Phone Number [facility] [address] [place] [phone] * POCT Glucose (08/22/2025 9:39 AM EST) Glucose Blood, POC 139 60 - 200 mg/dL QC Media Lot # [id number] Lot# Expiration Date 472,[id number] Comment:random Blood Capillary blood specimen / Unknown 08/22/2025 9:39 AM EST Иван Mackey MD POINT OF CARE TEST ENTER/ED IT ORDERABLES Final Result * (ABNORMAL) POCT Hgb A1c (08/22/2025 9:38 AM EST) Hemoglobin A1C 6.5(A) 4.0 - 5.7 % QC Media Lot # [id number] Lot# Expiration Date [id number] Blood 08/22/2025 9:38 AM EST Иван Mackey [...] AM EST . Internal Pass Control Lot# [id number] Exp: 06-25-26 Иван Mackey MD POINT OF CARE TEST ENTER/ED IT ORDERABLES Final Result * Albumin/Creatinine Ratio, Random Urine (07/03/2025 10:44 AM EDT) Urine (Urine, Random) Historical Provider LAB URINE ORDERABLES Janie l Result * Diabetes Eye Exam (05/30/2025 3:57 PM EDT) Historical Provider HEALTH MAINTENANCE Final Result * (ABNORMAL) Lipid Panel, Standard (05/14/2025 9:49 AM EDT) Triglycerides 189(H) <150 mg/dL [facility] Comment:Desirable Triglyceri de: less than 150 mg/dLBorderline High Triglyceride 150-199 mg/dLHigh Triglyceride: 200-499 mg/dLVery High Triglyceride: greater than or equal to 5OO mg/dL Cholesterol 137 <200 mg/dL [facility] Comment:Desirable Cholestero l: less than 200 mg/dLBorderline High Cholesterol: 200-239 mg/dLHigh Cholesterol: greater than 239 mg/dL LDL Cholesterol Calculated 65 <100 mg/dL [facility] Comment:Desirable LDL: less than 100 mg/dLNear Optimal/Above Optimal LDL: 110- 129 mg/dLBorderline High LDL: 130-159 mg/dLHigh LDL: 160-189 mg/dLVery High LDL: greater than or equal to 190 mg/dL HDL Cholesterol 35(L) >40 mg/dL [facility] Comment:Desirable HDL: great er than 40 mg/dL Note: This HDL assay may give artificially low results in patients with liver disease. Blood Venous blood specimen / Unknown 05/14/2025 9:49 AM EDT 05/14/2025 1:58 PM EDT us Иван Mackey MD LAB BLOOD ORDERABLES Final Result [facility] [address] [place] [phone] * (ABNORMAL) Cologuard?? colon cancer screening (02/14/2024 7:20 AM EDT) Cologuard Result Positive( A) Negative 02/18/2024 12:47 AM EDT [facility] (CLIA #:[id number]) Comment: POSITIVE TEST RESULT. A positive Cologuard [...] screened with both Cologuard and colonoscopy. (Terrance Sweeney et al, N Engl J Med 2014;370(14):5395-4533.) Cologuard may produce a false negative or false positive result (no colorectal cancer or precancerous polyp present at colonoscopy follow up). A negative Cologuard test result does not guarantee the absence of CRC or advanced adenoma (pre-cancer). The current Cologuard screening interval is every 3 years. ([employer] and U.S. Multi-Society Task Force). Cologuard performance data in a 10,000 patient pivotal study using colonoscopy as the reference method can be accessed at the following location: www.[employer]/results. Additional description of the Cologuard test process, warnings and precautions can be found at www.[employer].ogSumo Insight Ltdrd.Tyche. Stool specimen (specimen) 02/14/2024 7:20 AM EDT 02/15/2024 2:42 PM EDT Иван Mackey MD LAB MOLECULAR DIAGNOSTICS O RDERABLES Final Result [facility] (CLIA #:[id number]) [place] [address], * Hepatitis C Antibody with Reflex to HCV, RNA, Quantitative, Real-Time PCR (01/24/2024 10:34 AM EDT) Hepatitis C Antibody Nonreactive Nonreactive [facility] Comment:Antibodies to HCV no t detected; does not exclude early acuteHCV infection. Blood Venous blood specimen / Unknown 01/24/2024 10:34 AM EDT 01/24/2024 2:13 PM EDT Иван Mackey MD LAB BLOOD ORDERABLES Final Result [facility] [address] [place] [phone] from Last 3 Months or Most [...] 09/05/2025 Patient has diabetic neuropathy 09/05/2025 Insurance [facility] MEDICARE ADVANTAGE HMO Care Teams Biochemistry Technologist Relationship Specialty Start Date End Date Иван Mackey MD [address] [place] [phone] PCP - General Internal Medicine 04/18/15
--- OUTSIDE RECORDS SUMMARY | 2025-09-17 10:27 | XMS_ITS | Encounter Summary ---
Author Organization [employer] Address [address] [facility] 7t [place] [address] Care Team Providers Care Chemical Compounder Helper Name Role Phone Иван Mackey MD Primary Care Provider [phone] Encounter Details Date Type Department Care Team (Late st Contact Info) Description 12/27/2024 Orders Only [facility] [address] [place], [place] [phone] ProviderCarina MD Social History Tobacco Use Types [...] [facility] [address] [place] [address] Michaela Parrish, RN [address] [place] [address] documented as of this encounter Goals Goal [...] on filedocumented in this encounter Care Teams Chemical Compounder Helper Relationship Specialty Start Date End Date Иван Mackey MD [address] [place] [address] PCP - General Internal Medicine 04/18/15 documented as of this encounter
--- OUTSIDE RECORDS SUMMARY | 2025-09-17 10:27 | XMS_ITS | Encounter Summary ---
Author Organization [employer] Address [address] [place] [address] [address] [place] [address] Care Team Providers Care Closing Agent Name Role Phone Иван Mackey MD Primary Care Provider [phone] Encounter Details Date Type Department Care Team (Late Contact Info) Description 02/16/2023 [facility] Intelligence Information Management [address] [place] [address] Иван Mackey MD [address] [place], [place] [phone] Social History Tobacco Use Types Packs/Day Years [...] Description 10/03/2025 9:30 AM EST Clinical Support [facility] [address] [place], [place] [phone] Michaela Parrish RN [address] [place], [place] [phone] documented as of this encounter Goals Goal [...] on filedocumented in this encounter Care Teams Closing Agent Relationship Specialty Start Date End Date Иван Mackey MD [address] [place] [address] PCP - General Internal Medicine 04/18/15 documented as of this encounter
--- OUTSIDE RECORDS SUMMARY | 2025-09-17 10:27 | XMS_ITS | Encounter Summary ---
Author Organization [employer] Address [address] [facility] 7 [place] [address] Care Team Providers Care Hydramatic Mechanic Name Role Phone Иван Mackey MD Primary Care Provider [phone] Encounter Details Date Type Department Care Team ([facility] st Contact Info) Description 01/17/2024 Orders Only [facility] [address] [place], [place] [phone] Иван Mackey MD [address] [place] [address] Chronic pain syndrome Social History Tobacco Use [...] 9:30 AM EST Clinical Support [facility] [address] [place] [address] Michaela Parrish, RN [address] [place] [address] documented as of this encounter Goals Goal [...] syndrome documented in this encounter Care Teams Hydramatic Mechanic Relationship Specialty Start Date End Date Иван Mackey MD [address] [place] [address] PCP - General Internal Medicine 04/18/15 documented as of this encounter
--- OUTSIDE RECORDS SUMMARY | 2025-09-17 10:27 | XMS_ITS | Encounter Summary ---
Author Organization [employer] Address [address] [facility] 7 [place] [address] Care Team Providers Care Manager Printing Name Role Phone Иван Mackey MD Primary Care Provider [phone] Reason for Visit * Reason Comments Med Refill Encounter Details Date Type Department Care Team ([facility] st Contact Info) Description 01/16/[address] [facility] [address] [place], [place] [phone] Иван Mackey MD [address] [place] [address] Chronic pain syndrome Social History Tobacco Use [...] [facility] [address] [place] [address] Michaela Parrish, LUBA [address] [place] [address] documented as of this encounter Goals Goal [...] syndrome documented in this encounter Care Teams Manager Printing Relationship Specialty Start Date End Date Иван Mackey MD [address] [place] [address] PCP - General Internal Medicine 04/18/15 documented as of this encounter
--- OUTSIDE RECORDS SUMMARY | 2025-09-17 10:27 | XMS_ITS | Encounter Summary ---
Author Organization [employer] Address [address] [facility] 7 [place] [address] Care Team Providers Care Baseball Pitcher Name Role Phone Иван Mackey MD Primary Care Provider [phone] Reason for Visit * Reason Comments Med Refill Encounter Details Date Type Department Care Team ([facility] st Contact Info) Description 02/17/2024 Refill [facility] [address] [place], [place] [phone] Иван Mackey MD [address] [place] [address] Chronic pain syndrome Social History Tobacco Use [...] Clinical Support [facility] [address] [place] [address] Michaela Parrish, RN [address] [place] [address] documented as of this encounter Goals Goal [...] syndrome documented in this encounter Care Teams Baseball Pitcher Relationship Specialty Start Date End Date Иван Mackey MD [address] [place] [address] PCP - General Internal Medicine 04/18/15 documented as of this encounter
--- OUTSIDE RECORDS SUMMARY | 2025-09-17 10:27 | XMS_ITS | Encounter Summary ---
Author Organization [employer] Address [address] [facility] 7t [place] [address] Care Team Providers Care Crane Operator Name Role Phone Иван Mackey MD Primary Care Provider [phone] Encounter Details Date Type Department Care Team ([facility] st Contact Info) Description 09/11/2025 Orders Only [facility] MED & PEDS [address] [place], [place] [phone] Иван Mackey MD 505 [place] [address] Primary hypertension (Primary Dx); Choledocholithiasis; Hypercholesterolemia Social History Tobacco Use Types Packs/Day Years [...] [facility] MED & PEDS [address] [place] [address] Michaela Parrish, RN 505 [place] [address] documented as of this encounter Goals Goal [...] Mackey MD documented as of this encounter Procedures Procedure Name Priority Date/Time Associated Diagnosis Comments HEPATIC FUNCTION PANEL Routine 09/16/2025 8:43 AM EST Choledocholithiasis documented in this encounter Results * Hepatic Function Panel (09/16/2025 8:43 AM EST) Bilirubin, Total 0.8 0.0 - 1.0 mg/dL LABS Bilirubin, Direct 0.3 0.0 - 0.5 mg/dL LABS Aspartate Amino Transferase 31 5 - 37 U/L LABS Alanine Aminotransferase 27 0 - 40 U/L LABS Total Protein 7.2 6.5 - 8.0 g/dL LABS Albumin Level 4.3 3.5 - 5.0 g/dL LABS Alkaline Phosphatase 57 39 - 117 U/L LABS Blood Venous blood specimen / Unknown 09/16/2025 8:43 AM EST 09/16/2025 2:52 PM EST us Иван Mackey MD LAB BLOOD ORDERABLES Final Result LABS [address] [place] [phone] documented in this encounter Visit Diagnoses Diagnosis Primary hypertension- Primary Unspecified essential hypertension Choledocholithiasis Calculus of bile duct without mention of cholecystitis or obstruction Hypercholesterolemia Pure hypercholesterolemia documented in this encounter Additional Health Concerns [...] documented as of this encounter Care Teams Crane Operator Relationship Specialty Start Date End Date Иван Mackey MD [address] [place] [address] PCP - General Internal Medicine 04/18/15 documented as of this encounter
--- OUTSIDE RECORDS SUMMARY | 2025-09-17 10:27 | XMS_ITS | Patient Health Record ---
Author Organization [facility] [facility] Address [address] [place] [address] Care Team Providers Care Locomotive Inspector Name Role Phone Иван Mackey M.D. Primary Care Provider Un available Fernando Anderson Unavailable [phone] Results Component Value Reference Range Flag Notes Hold Lav - Possible Hematolo gy Reviewed date:08/28/2025 05:10:01 PM Interpretation: Performing Lab:[address] [address] Notes/Report: Hold Lav - Possible Hematology SEE NOTE Specimen will be held untested for 8 hours. Call Hematology if testing is desired. Prothrombin Time INR Reviewed date:08/28/2025 05:10:08 PM Interpretation: Performing Lab:[facility], [address] [place] [phone] Notes/Report: Prothrombin Time 15.6 11.2-13.5 SEC H [...] mechanical prosthetic heart valves: 2.5 - 3.5 Liver Panel Reviewed date:08/28/2025 05:09:31 PM Interpretation: Performing Lab:[address] [address] Notes/Report: Bilirubin Total 2.9 0.0-1.0 mg/dL H Slight Icterus. Bilirubin Direct 1.9 0.0-0.5 mg/dL H Sligh t Icterus. Aspartate Amino Transferase 157 5-37 U/L H Alanine Aminotransferase 299 0-40 U/L H Total Protein 6.2 6.5-8.0 g/dL L Albumin Level 3.6 3.5-5.0 g/dL N Alkaline Phosphatase 129 39-117 U/L H Complete Blood Count Auto Di ff Reviewed date:08/29/2025 09:57:10 AM Interpretation: Performing Lab:[facility], [address] [place] [phone] Notes/Report: White Blood Count 15.4 4.8-10.8 X10*3/uL [...] NRBC Abs Auto 0.000 0.0-0.012 X10*3/uL N Hemoglobin and Hematocrit Reviewed date:08/30/2025 12:31:05 AM Interpretation: Performing Lab:[address] [address] Notes/Report: Hemoglobin 13.3 14.0-18.0 g/dl L Hematocrit 39.8 42.0-52.0 % L Liver Panel Reviewed date:08/29/2025 09:57:10 AM Interpretation: Performing Lab:[facility], [address] [place] [phone] Notes/Report: Bilirubin Total 1.4 0.0-1.0 mg/dL H Bilirubin Direct 0.8 0.0-0.5 mg/dL H Aspartate Amino Transferase 73 5-37 U/L H Alanine Aminotransferase 195 0-40 U/L H Total Protein 5.8 6.5-8.0 g/dL L Albumin Level 3.3 3.5-5.0 g/dL L Alkaline Phosphatase 101 39-117 U/L N Basic Metabolic Panel Reviewed date:08/29/2025 09:57:10 AM Interpretation: Performing Lab:[facility], [address] [place] [phone] Notes/Report: Sodium 141 135-145 mmol/L N Potassium [...] mg/dL H Calcium 8.0 8.4-10.2 mg/dL L Phosphorus Reviewed date:08/29/2025 09:57:10 AM Interpretation: Performing Lab:[address] [place] [address] Notes/Report: Phosphorus 1.7 2.7-4.5 mg/dL L Magnesium Reviewed date:08/29/2025 09:57:10 AM Interpretation: Performing Lab:[facility], [address] [place] [phone] Notes/Report: Magnesium 1.5 1.6-2.6 mg/dL L FL guidance in OR Reviewed date:09/01/2025 12:47:39 AM Interpretation: Performing Lab: Notes/Report: [address] [address] Fluoroscopy Report Signed Patient: Ricky Dickson MR#: [id number] 65 : 1950 Acct:[id number] Age/Sex: 75 / M ADM Date: 08/28/25 Loc: [facility] 445-[address]: Connie Gamino MD Ordering Physician: Fernando Anderson MD Date of Service: 08/29/25 Procedure(s): FL guidance in OR Accession Number(s): [id number] cc: Иван Mackey MD; Fernando Anderson MD [...] by: Arabella García MD 08/30/2025 07:55 AM [facility] [place] Dictated By: Arabella García MD Signed By: <Electronically signed by Arabella García MD in OV> 08/30/25 0755 DD/ 1611 TD/TT: 08/29/25 1655 Conduit Worker: CARMELLA Prothrombin Time INR Reviewed date:08/29/2025 09:57:10 AM Interpretation: Performing Lab:[address] [address] Notes/Report: Prothrombin Time 13.8 11.2-13.5 SEC H [...] mechanical prosthetic heart valves: 2.5 - 3.5 Liver Panel Reviewed date:09/01/2025 12:47:39 AM Interpretation: Performing Lab:[facility], [address] [place] [phone] Notes/Report: Bilirubin Total 1.0 0.0-1.0 mg/dL N Bilirubin Direct 0.6 0.0-0.5 mg/dL H Aspartate Amino Transferase 37 5-37 U/L N Alanine Aminotransferase 145 0-40 U/L H Total Protein 6.3 6.5-8.0 g/dL L Albumin Level 3.6 3.5-5.0 g/dL N Alkaline Phosphatase 98 39-117 U/L N Basic Metabolic Panel Reviewed date:09/01/2025 12:47:39 AM Interpretation: Performing Lab:[address] [address] Notes/Report: Sodium 142 135-145 mmol/L N Potassium [...] Phosphorus Reviewed date:09/01/2025 12:47:39 AM Interpretation: Performing Lab:[facility], [address] [place] [phone] Notes/Report: Phosphorus 3.0 2.7-4.5 mg/dL N Magnesium Reviewed date:09/01/2025 12:47:39 AM Interpretation: Performing Lab:[facility], [address] [place] [phone] Notes/Report: Magnesium 2.2 1.6-2.6 mg/dL N Reason For Referral No Information Encounters Encounter Location Date Provider Diagnosis [facility] [address] [place] [id number] 08/29/2025 Fernando Anderson [facility] [address] [place] [address] 09/02/2025 Fernando Anderson Plan Of Treatment No Information Insurance Providers Payer Name Payer Address Payer Phone Subscriber Number Group Number Insured Name Patient Relationship to Insured Coverage Start Date Coverage End Date [employer] Medicare Advantage Plan [address] [address] [place] [phone] [id number] RICKY DICKSON Self - patient is the insured
--- OUTSIDE RECORDS SUMMARY | 2025-09-17 10:27 | XMS_ITS | Encounter Summary ---
Author Organization [employer] Address 75 [facility] 7t [place] [address] Care Team Providers Care Field Human Resources Manager Name Role Phone Иван Mackey MD Primary Care Provider [phone] Encounter Details Date Type Department Care Team (Late st Contact Info) Description 05/13/2025 Orders Only [facility] CHC MED & PEDS [address] [place], [place] [phone] Lamar Khan RN [address] [place] [address] Social History Tobacco Use Types Packs/Day Years [...] Description 10/03/2025 9:30 AM EST Clinical Support [facility] MED & PEDS 505 [place] [address] Michaela Parrish, LUBA 505 [place] [address] documented as of this encounter Goals Goal [...] on filedocumented in this encounter Care Teams Field Human Resources Manager Relationship Specialty Start Date End Date Иван Mackey MD 505 [place] [address] PCP - General Internal Medicine 04/18/15 documented as of this encounter
--- OUTSIDE RECORDS SUMMARY | 2025-09-17 10:27 | XMS_ITS | Encounter Summary ---
Author Organization [employer] Address 75 [facility] 7 [place] [address] Care Team Providers Care Analyst Food And Beverage Name Role Phone Иван Mackey MD Primary Care Provider [phone] Reason for Visit * Reason Onset Date Comments Appointment Request 07/20/2023 Encounter Details Date Type Department Care Team ([facility] st Contact Info) Description 07/20/2023 Telephone [facility] MEDICINE [address] [place] [address] Иван Mackey MD 505 [place] [address] Appointment Request Social History Tobacco Use Types [...] for a open heart surgery. Please call [phone] documented in this encounter Plan of Treatment Upcoming Encounters Date Type Department Care Team (Late st Contact Info) Description 10/03/2025 9:30 AM EST Clinical Support [facility] MED & PEDS [address] [place] [address] Michaela Parrish RN 505 [place] [address] documented as of this encounter Goals Goal [...] on filedocumented in this encounter Care Teams Analyst Food And Beverage Relationship Specialty Start Date End Date Иван Mackey MD [address] [place] [address] PCP - General Internal Medicine 04/18/15 documented as of this encounter
--- OUTSIDE RECORDS SUMMARY | 2025-09-17 10:27 | XMS_ITS | Encounter Summary ---
Author Organization [employer] Address [address] [facility] 7t [place] [address] Care Team Providers Care Skin Piler Name Role Phone Иван Mackey MD Primary Care Provider [phone] Encounter Details Date Type Department Care Team ([facility] st Contact Info) Description 06/06/2025 Orders Only [facility] [address] [place] [address] Provider, MD Carina Social History Tobacco Use [...] Description 10/03/2025 9:30 AM EST Clinical Support [facility] MED & PEDS 505 [place] [address] Michaela Parrish, LUBA 505 [place] [address] documented as of this encounter Goals Goal [...] on filedocumented in this encounter Care Teams Skin Piler Relationship Specialty Start Date End Date Иван Mackey MD 505 [place] [address] PCP - General Internal Medicine 04/18/15 documented as of this encounter
--- OUTSIDE RECORDS SUMMARY | 2025-09-17 10:27 | XMS_ITS | Encounter Summary ---
Author Organization [employer] Address 75 [facility] 7 [place] [address] Care Team Providers Care Software Lead Name Role Phone Иван Mackey MD Primary Care Provider [phone] Reason for Visit * Reason Comments Med Refill Encounter Details Date Type Department Care Team ([facility] st Contact Info) Description 01/17/2024 Refill [facility] CHC MED & PEDS [address] [place], [place] [phone] Иван Mackey MD 505 [place] [address] Chronic pain syndrome Social History Tobacco Use [...] 9:30 AM EST Clinical Support [facility] MED & PEDS [address] [place] [address] Michaela Parrish, LUBA 505 [place] [address] documented as of this encounter Goals Goal [...] syndrome documented in this encounter Care Teams Software Lead Relationship Specialty Start Date End Date Иван Mackey MD 505 [place] [address] PCP - General Internal Medicine 04/18/15 documented as of this encounter
--- OUTSIDE RECORDS SUMMARY | 2025-09-17 10:27 | XMS_ITS | Encounter Summary ---
Author Organization [employer] Address [address] [place] [address] 7 [place] [address] Care Team Providers Care Honing Machine Operator Name Role Phone Иван Mackey MD Primary Care Provider [phone] Reason for Visit * Reason Comments Med Refill Encounter Details Date Type Department Care Team (Late st Contact Info) Description 10/13/2022 Refill [facility] [address] [place] [address] Иван Mackey MD 505 [place] [address] Chronic pain syndrome Social History Tobacco Use [...] 9:30 AM EST Clinical Support [facility] CHC MED & PEDS 505 [place], [place] [phone] Michaela Parrish, LUBA 505 [place], [place] [phone] documented as of this encounter Visit Diagnoses Diagnosis Chronic pain syndrome documented in this encounter Care Teams Honing Machine Operator Relationship Specialty Start Date End Date Иван Mackey MD [address] [place] [address] PCP - General Internal Medicine 04/18/15 documented as of this encounter
--- OUTSIDE RECORDS SUMMARY | 2025-09-17 10:27 | XMS_ITS | Encounter Summary ---
Author Organization [employer] [facility] Address [address] [place] [address] Care Team Providers Care Mechanical Design Technician Name Role Phone Иван Mackey MD Primary Care Provider [phone] Reason for Visit * Reason Comments Med Refill Encounter Details Date Type Department Care Team ([facility] Contact Info) Description 09/10/[address] [facility] MEDICINE [address] [place] [address] Иван Mackey MD 505 [place] [address] Acute cough; Unspecified osteoarthritis, unspecified site Social [...] Upcoming Encounters Date Type Department Care Team ([facility] Contact Info) Description 10/03/2025 9:30 AM EST Clinical Support [facility] CH[facility] MED & PEDS 505 [place], [place] [phone] Michaela Parrish, LUBA 505 [place], [place] [phone] documented as of this encounter Visit Diagnoses Diagnosis Acute cough Unspecified osteoarthritis, unspecified site documented in this encounter Care Teams Mechanical Design Technician Relationship Specialty Start Date End Date Иван Mackey MD [address] [place] [address] PCP - General Internal Medicine 04/18/15 documented as of this encounter
--- OUTSIDE RECORDS SUMMARY | 2025-09-17 10:27 | XMS_ITS | Encounter Summary ---
Author Organization [employer] Address 75 [facility] 7 [place] [address] Care Team Providers Care Stretcher Leveler Operator Name Role Phone Иван Mackey MD Primary Care Provider [phone] Encounter Details Date Type Department Care Team ([facility] st Contact Info) Description 11/14/2023 Orders Only [facility] CH[facility] MED & PEDS [address] [place], [place] [phone] Иван Mackey MD 505 [place] [address] Primary hypertension (Primary Dx); Chronic gastritis without [...] 9:30 AM EST Clinical Support [facility] MED & PEDS [address] [place] [address] Michaela Parrish, RN 505 [place] [address] documented as of this encounter Goals Goal [...] type documented in this encounter Care Teams Stretcher Leveler Operator Relationship Specialty Start Date End Date Иван Mackey MD [address] [place] [address] PCP - General Internal Medicine 04/18/15 documented as of this encounter
--- OUTSIDE RECORDS SUMMARY | 2025-09-17 10:27 | XMS_ITS | Encounter Summary ---
Author Organization [employer] Address 75 [facility] 7 [place] [address] Care Team Providers Care Ground Operations Supervisor Name Role Phone Иван Mackey MD Primary Care Provider [phone] Reason for Visit * Reason Comments Med Refill Encounter Details Date Type Department Care Team ([facility] st Contact Info) Description 02/16/2024 Refill [facility] CH[facility] MED & PEDS 505 [place], [place] [phone] Иван Mackey MD [address] [place] [address] Chronic pain syndrome Social History Tobacco Use [...] Support [facility] MED & PEDS 505 [place] [address] Michaela Parrish, RN 505 [place] [address] documented as of this encounter Goals Goal [...] syndrome documented in this encounter Care Teams Ground Operations Supervisor Relationship Specialty Start Date End Date Иван Mackey MD [address] [place] [address] PCP - General Internal Medicine 04/18/15 documented as of this encounter
== END 2025-09-17 09:31 | disposition home or self-care (01) ==
LOC: HO.HGS 08:39
PROVIDERS: PCP Internal Medicine
DX: K80.20 Calculus of gallbladder without cholecystitis without obstruction (principal)
CPT/HCPCS: 99214

== ENCOUNTER → 2025-09-17 08:39 | Outpatient (BNVA) | payer MEDICARE, SELFPAY | PROVIDERS: PCP Internal Medicine | DX: K80.20 Calculus of gallbladder without cholecystitis without obstruction (principal); Z95.810 Presence of automatic (implantable) cardiac defibrillator; Z87.891 Personal history of nicotine dependence | CPT/HCPCS: 99212 ==